=== PATIENT | male | born 1985 | race Caucasian/White ===

== ENCOUNTER 2017-11-26 23:54 | Inpatient (IN) | payer OTHER, SELFPAY ==
[2017-10-09 10:39] VITALS: BMI 25.8
[2017-11-27 00:46] LABS: BASO % 0.5 % (0.0-2.0); EOS # 0.2 K/uL (0.0-0.7); EOS % 2.7 % (0.0-4.0); HEMOGLOBIN 8.7 g/dL (12.0-18.0); LYMPH # 1.5 K/uL (1.0-4.3); LYMPH % 20.8 % (20.0-40.0); MEAN CELL VOLUME 92.9 fL (80.0-94.0); MEAN CORPUSCULAR HGB CONC 34.4 g/dL (33.0-37.0); MEAN PLATELET VOLUME 8.6 fL (7.2-11.7); MONO # 0.6 K/uL (0.0-0.8); MONO % 8.7 % (0.0-10.0); NEUT # 4.9 K/uL (1.8-7.0); NEUT % 67.3 % (50.0-75.0); NRBC % 0.1 % (0.0-2.0); RBC 2.72 Mil/uL (4.40-5.90); RED CELL DISTRIBUTION WIDTH 14.7 % (11.5-14.5); WHITE BLOOD COUNT 7.3 K/uL (4.8-10.8)
--- NOTE | 2017-11-27 00:47 | C.PDOC ---
History Of Present Illness 32 year old male presents to the ED c/o SOB associated with coughing. Patient reports he goes to dialysis on Monday, Monday, Monday. Patient speaking in complete sentences. Patient denies fever, chills, nausea, vomit, weakness, numbness. Time Seen by Provider: 11/27/17 00:47 Chief Complaint (Nursing): Shortness Of Breath History Per: Patient History/Exam Limitations: no limitations Onset/Duration Of Symptoms: Hrs Current Symptoms Are (Timing): Still Present Initiating Event: Other Quality: "Pain" Exacerbating Factor(s): Coughing Current Respiratory Medications: See Home Med List Associated Symptoms: Other (cough) Recent travel outside of the [place]: No Additional History Per: Patient Past Medical History Reviewed: Historical Data, Nursing Documentation, Vital Signs Vital Signs: Last Vital Signs Temp 98.7 F 11/27/17 00:00 Pulse 84 11/27/17 01:49 Resp 29 H 11/27/17 01:49 BP 169/103 H 11/27/17 01:49 Pulse Ox 100 11/27/17 03:08 - Medical History PMH: End Stage Renal Disease Surgical History: No Surg Hx - [facility] Procedures BYPASS LEFT RADIAL ARTERY TO LOWER ARM VEIN, OPEN APPROACH (08/13/15) INSERTION OF INFUSION DEV INTO SUP VENA CAVA, PERC APPROACH (08/13/15) MEASURE CARDIAC SAMPL & PRESSURE, BILATERAL, PERC (08/13/15) PERFORMANCE OF URINARY FILTRATION, MULTIPLE (08/13/15) PLAIN RADIOGRAPHY OF R & L HEART USING L OSM CONTRAST (08/13/15) Family History: States: Unknown Family Hx - Social History Hx Alcohol Use: No Hx Substance Use: No - Immunization History Hx Tetanus Toxoid Vaccination: No Hx Influenza Vaccination: No Hx Pneumococcal Vaccination: No Review Of Systems Constitutional: Negative for: Fever, Chills Cardiovascular: Negative for: Chest Pain Respiratory: Positive for: Cough, Shortness of Breath Gastrointestinal: Negative for: Nausea, Vomiting Skin: Negative for: Rash Neurological: Negative for: Weakness, Numbness Physical Exam - Physical Exam Appears: Non-toxic, No Acute Distress Skin: Warm, Dry Head: Normacephalic Eye(s): bilateral: Normal Inspection Oral Mucosa: Moist Neck: Supple Chest: Symmetrical Cardiovascular: Rhythm Regular Respiratory: Rales (diffuse), No Rhonchi, No Wheezing Gastrointestinal/Abdominal: Soft, No Tenderness, No Guarding, No Rebound Extremity: Normal ROM, No Tenderness, Capillary Refill (< 2 seconds), No Swelling, Other (left forearm hemodialysis graft with good thrill and bruit) Extremity: Bilateral: Atraumatic Pulses: Left Radial: Normal, Right Radial: Normal Neurological/Psych: Oriented x3, Normal Speech Gait: Steady ED Course And Treatment - Laboratory Results Result Diagrams: 11/27/17 00:41 11/27/17 00:41 ECG: Interpreted By Me, Viewed By Me O2 Sat by Pulse Oximetry: 100 Pulse Ox Interpretation: Normal - Radiology CXR: Interpreted by Me, Viewed By Me CXR Interpretation: Yes: Other (acute pulm edema). No: Infiltrates, Fracture, Cardiomegaly Progress Note: 3:[address] parrish ( renal covering for dr michaels) - ok to dialyse in am Critical Care Time - Critical Care Note Total Time (in mins): 30 Documented critical care: time excludes all time spent performing seperately billable procedures. Disposition Discussed With DrLetty: Corey Leal Comment: accepted the pt onhis service and took over the care at 3:10 AM Doctor Will See Patient In The: ED Counseled Patient/Family Regarding: Studies Performed, Diagnosis - Disposition Disposition: HOSPITALIZED Disposition Time: 00:47 Condition: FAIR Forms: [facility] (Persian) - POA Present On Arrival: None - Clinical Impression Clinical Impression: Dyspnea, Respiratory distress, CHF (congestive heart failure), ESRD needing dialysis - Scribe Statement The provider has reviewed the documentation as recorded by the Scribe Sameer Breen All medical record entries made by the Scribe were at my direction and personally dictated by me. I have reviewed the chart and agree that the record accurately reflects my personal performance of the history, physical exam, medical decision making, and the department course for this patient. I have also personally directed, reviewed, and agree with the discharge instructions and disposition. Decision To Admit - Pt Status Changed To: Hospital Disposition Of: Inpatient - Admit Certification Admit to Inpatient:: After my assessment, the patient will require hospitalization for at least two midnights. This is because of the severity of symptoms shown, intensity of services needed, and/or the medical risk in this patient being treated as an outpatient. - InPatient: Physician Admission Certification: I certify that this patient requires 2 or more midnights of care for the following reason:: After my assessment, the patient will require hospitalization for at least two midnights. This is because of the severity of symptoms shown, intensity of services needed, and/or the medical risk in this patient being treated as an outpatient. - . Bed Request Type: Telemetry Admitting Physician: Corey Leal Patient Diagnosis: Dyspnea, Respiratory distress, CHF (congestive heart failure), ESRD needing dialysis
[2017-11-27 00:51] LABS: PROTHROMBIN TIME 10.9 SECONDS (9.7-12.2)
[2017-11-27 01:05] LABS: TROPONIN I 0.039 ng/mL (0.00-0.120)
[2017-11-27 01:39] LABS: ALB/GLOB RATIO 1.5 (1.0-2.1); ALBUMIN 4.4 g/dL (3.5-5.0); CALCIUM 9.7 mg/dl (8.6-10.4)
--- NOTE | 2017-11-27 03:56 | CP.PCM.HP ---
<Giorgio Owen - Last Filed: 11/27/17 05:01> History of Present Illness - History of Present Illness History of Present Illness: This is a 32 yo male, originally from [place], with past medical hx of CHF with reduced ejection fraction, cardiomyopathy, pulmonary hypertension, renal cysts, and ESRD, presenting today to [facility] ER with chief complaint of SOB. Pt is accompanied by . says he drove pt into ER. Pt has been having sob that started on 7 pm this past evening. pt was attempting to go to sleep and could not. He also reports non productive cough. He is chronically short of breath and it was worsening today. Pt is end stage renal. could not say the reason. Denies fevers, chills, cp, palpitations. He has been on dialysis for 2 yrs. He gets dialysis through left av fistula. He does not miss sessions. He sees Dr. Sparrow. He cannot say how much fluid was taken off last visit. He does not produce urine. He is compliant with all medications. He was given IV lasix in ER to help with vasodilation. PMD: Jorge/JOSE in [facility] clinic Specialists: Andrews- nephrology Insurance: [facility] 100 percent [facility] PMH: CHF, dilated cardiomyopathy, pulmonary hypertension, renal cysts, ESRD on dialysis MWF PSH: av fistula left upper ext, vein mapping Allergies: NKDA FH: father- living- no medical problems; mother- living- HTN Home meds: sensipar, lisinopril?, cardizem?, could not say for sure his home medications; needs med rec. Social hx: Denies smoking. Denies secondhand smoke. Denies drinking. Denies drug use. Born in [place]. Does not work. Fully mobile, able to do all ADLs. Recent ER visits/hospitalizations: pt has not been to ER in our system in over a year. Present on Admission - Present on Admission Any Indicators Present on Admission: No History of Uncontrolled Diabetes: No Urinary Catheter: No Decubitus Ulcer Present: No Review of Systems - Constitutional Constitutional: absent: Chills, Fever - EENT Eyes: absent: Blurred Vision, Change in Vision Nose/Mouth/Throat: absent: Sore Throat, Neck Pain - Cardiovascular Cardiovascular: Dyspnea. absent: Chest Pain, Chest Pain at Rest - Respiratory Respiratory: Cough, Dyspnea, Dyspnea on Exertion. absent: Hemoptysis - Gastrointestinal Gastrointestinal: absent: Abdominal Pain, Nausea, Vomiting - Genitourinary Genitourinary: absent: Change in Urinary Stream, Difficulty Urinating - Musculoskeletal Musculoskeletal: absent: Back Pain, Neck Pain, Numbness, Tingling - Integumentary Integumentary: absent: Bleeding Lesions, Changing Lesions - Neurological Neurological: absent: Numbness, Focal Weakness, Tingling, Weakness - Psychiatric Psychiatric: absent: Anxiety, Hallucinations, Visual Hallucinations - Hematologic/Lymphatic Hematologic: absent: Easy Bleeding, Easy Bruising Past Patient History - Infectious Disease Hx of Infectious Diseases: None - Tetanus Immunizations Tetanus Immunization: Unknown - Past Medical History & Family History Past Medical History?: Yes Pertinent Family History: HTN , heart disease in family - Past Social History Smoking Status: Never Smoked Chewing Tobacco Use: No Cigar Use: No Alcohol: None Drugs: Denies Home Situation {Lives}: With Family Domestic Violence: Negative - CARDIAC Hx Cardiac Disorders: No - PULMONARY Other/Comment: SOB A COUPLE DAYS AGO - NEUROLOGICAL Hx Neurological Disorder: No - HEENT Other/Comment: L EYE BLURRY - RENAL Hx Chronic Kidney Disease: No - ENDOCRINE/METABOLIC Hx Endocrine Disorders: No - HEMATOLOGICAL/ONCOLOGICAL Hx Blood Disorders: No - INTEGUMENTARY Hx Dermatological Problems: No - MUSCULOSKELETAL/RHEUMATOLOGICAL Hx Musculoskeletal Disorders: No Hx Falls: No - GASTROINTESTINAL Hx Gastrointestinal Disorders: No - PSYCHIATRIC Hx Substance Use: No - SURGICAL HISTORY Hx Surgeries: No - ANESTHESIA Hx Anesthesia: No Meds Allergies/Adverse Reactions: Allergies Allergy/AdvReac Type Severity Reaction Status Date / Time No Known Allergies Allergy Verified 08/13/15 01:36 Physical Exam - Constitutional Appears: No Acute Distress, Chronically Ill - Head Exam Head Exam: ATRAUMATIC, NORMAL INSPECTION - Eye Exam Eye Exam: EOMI - ENT Exam ENT Exam: Mucous Membranes Moist - Neck Exam Neck exam: Positive for: Normal Inspection - Respiratory Exam Respiratory Exam: Rales. absent: Respiratory Distress, NORMAL BREATHING PATTERN - Cardiovascular Exam Cardiovascular Exam: +S1, +S2. absent: Tachycardia - GI/Abdominal Exam GI & Abdominal Exam: Normal Bowel Sounds, Soft. absent: Tenderness - Extremities Exam Extremities exam: Positive for: full ROM, normal inspection - Back Exam Back exam: NORMAL INSPECTION - Neurological Exam Neurological exam: Alert, CN II-XII Intact, Oriented x3 - Psychiatric Exam Psychiatric exam: Normal Affect, Normal Mood - Skin Skin Exam: Dry, Intact, Normal Color, Warm Results - Vital Signs Recent Vital Signs: Last Vital Signs Temp 98.7 F 11/27/17 00:00 Pulse 85 11/27/17 03:12 Resp 20 11/27/17 03:12 BP 158/98 H 11/27/17 03:12 Pulse Ox 100 11/27/17 03:21 - Labs Result Diagrams: 11/27/17 00:41 11/27/17 00:41 Labs: Laboratory Results - last 24 hr 11/27/17 11/27/17 11/27/17 00:41 00:41 00:41 WBC 7.3 D RBC 2.72 L Hgb 8.7 L D Hct 25.3 L MCV 92.9 MCH 32.0 H MCHC 34.4 RDW 14.7 H Plt Count 151 MPV 8.6 Neut % (Auto) 67.3 Lymph % (Auto) 20.8 [place] % (Auto) 8.7 Eos % (Auto) 2.7 Baso % (Auto) 0.5 Neut # (Auto) 4.9 Lymph # (Auto) 1.5 [place] # (Auto) 0.6 Eos # (Auto) 0.2 Baso # (Auto) 0.0 PT 10.9 INR 1.0 APTT 31 Sodium 146 Potassium 4.8 Chloride 103 Carbon Dioxide 25 Anion Gap 23 H BUN 62 H Creatinine 12.0 H* Est GFR ( Amer) 6 Est GFR (Non-Af Amer) 5 Random Glucose 90 Calcium 9.7 Total Bilirubin 0.6 AST 26 ALT 46 Alkaline Phosphatase 44 Troponin I 0.0390 NT-Pro-B Natriuret Pep 82686 H Total Protein 7.3 Albumin 4.4 Globulin 2.9 Albumin/Globulin Ratio 1.5 Lipase 179 Assessment & Plan - Assessment and Plan (Free Text) Assessment: This is a 32 yo male, originally from [place], with past medical hx of CHF and ESRD, presenting with 1. Shortness of breath -ef 45-50 percent -echo 2018 shows mildly impaired LV fx, moderate pulm hypertension -cardio consult. recs appreciated. -ekg does show some changes from previous -troponin not indicated -no chest pain currently -bipap if needed -CXR -shows pulmonary edema -asa 81 mg po daily -crestor 10 mg po hs -HGB a1C pending; previously 4.7 -TSH and free t4 pending -strict I/O -daily weight -pt condition: fair 2. hx of ESRD -nephrology consult. recs appreciated. Dr. Sparrow -dialysis in am -continue nephrovite -continue calcitriol .25 mcg po daily -continue sensipar -bleeding precautions -BNP over 77,000 likely secondary to renal failure 3. anemia -normocytic -ldh, haptoglobin -stool occult blood -iron studies 3. GI/DVT ppx -scds -protonix 40 mg po daily -renal diet discussed with Dr. Leal <Corey Leal - Last Filed: 11/27/17 06:25> Results - Vital Signs Recent Vital Signs: Last Vital Signs Temp 98.7 F 11/27/17 00:00 Pulse 96 H 11/27/17 05:59 Resp 22 11/27/17 05:59 BP 156/103 H 11/27/17 05:59 Pulse Ox 95 11/27/17 05:59 - Labs Result Diagrams: 11/27/17 05:00 11/27/17 00:41 Labs: Laboratory Results - last 24 hr 11/27/17 11/27/17 11/27/17 00:41 00:41 00:41 WBC 7.3 D RBC 2.72 L Hgb 8.7 L D Hct 25.3 L MCV 92.9 MCH 32.0 H MCHC 34.4 RDW 14.7 H Plt Count 151 MPV 8.6 Neut % (Auto) 67.3 Lymph % (Auto) 20.8 [place] % (Auto) 8.7 Eos % (Auto) 2.7 Baso % (Auto) 0.5 Neut # (Auto) 4.9 Lymph # (Auto) 1.5 [place] # (Auto) 0.6 Eos # (Auto) 0.2 Baso # (Auto) 0.0 PT 10.9 INR 1.0 APTT 31 Sodium 146 Potassium 4.8 Chloride 103 Carbon Dioxide 25 Anion Gap 23 H BUN 62 H Creatinine 12.0 H* Est GFR ( Amer) 6 Est GFR (Non-Af Amer) 5 Random Glucose 90 Calcium 9.7 Ferritin Total Bilirubin 0.6 AST 26 ALT 46 Alkaline Phosphatase 44 Troponin I 0.0390 NT-Pro-B Natriuret Pep 39147 H Total Protein 7.3 Albumin 4.4 Globulin 2.9 Albumin/Globulin Ratio 1.5 Triglycerides Cholesterol LDL Cholesterol Direct HDL Cholesterol Lipase 179 TSH 3rd Generation 11/27/17 11/27/17 04:36 05:00 WBC 6.1 RBC 2.54 L Hgb 8.0 L Hct 23.5 L MCV 92.6 MCH 31.7 H MCHC 34.2 RDW 14.8 H Plt Count 140 MPV 8.3 Neut % (Auto) Lymph % (Auto) 21.0 [place] % (Auto) 7.9 Eos % (Auto) 2.4 Baso % (Auto) 0.4 Neut # (Auto) Lymph # (Auto) 1.3 [place] # (Auto) 0.5 Eos # (Auto) 0.1 Baso # (Auto) 0.0 PT INR APTT Sodium Potassium Chloride Carbon Dioxide Anion Gap BUN Creatinine Est GFR ( Amer) Est GFR (Non-Af Amer) Random Glucose Calcium Ferritin 747.0 Total Bilirubin AST ALT Alkaline Phosphatase Troponin I NT-Pro-B Natriuret Pep Total Protein Albumin Globulin Albumin/Globulin Ratio Triglycerides 101 D Cholesterol 143 LDL Cholesterol Direct 67 HDL Cholesterol 30 Lipase TSH 3rd Generation 0.63 Assessment & Plan - Date & Time Date: 11/27/17 (I have seen and examined the patient. I agree with the findings and plan of care as documented by Dr. Owen. Patient with CHF exacerbation. Lasix IV given in ED. Consult to Cardio. BIPAP as necessary. Also with ESRD. Consult to Nephro. Dialysis this AM. Monitor for acute changes.) Time: 06:24 Attending/Attestation - Attestation I have personally seen and examined this patient.: Yes I have fully participated in the care of the patient.: Yes I have reviewed all pertinent clinical information: Yes
[2017-11-27 05:48] LABS: MEAN CELL VOLUME 92.6 fL (80.0-94.0); MEAN CORPUSCULAR HEMOGLOBIN 31.7 pg (27.0-31.0); MEAN CORPUSCULAR HGB CONC 34.2 g/dL (33.0-37.0); MEAN PLATELET VOLUME 8.3 fL (7.2-11.7); MONO % 7.9 % (0.0-10.0); RBC 2.54 Mil/uL (4.40-5.90); RED CELL DISTRIBUTION WIDTH 14.8 % (11.5-14.5); WHITE BLOOD COUNT 6.1 K/uL (4.8-10.8)
[2017-11-27 05:49] LABS: BASO % 0.4 % (0.0-2.0); EOS # 0.1 K/uL (0.0-0.7); EOS % 2.4 % (0.0-4.0); LYMPH # 1.3 K/uL (1.0-4.3); MONO # 0.5 K/uL (0.0-0.8)
--- NOTE | 2017-11-27 07:48 | CP.PCM.PN ---
<RejiChhaya SLetty - Last Filed: 11/27/17 17:14> Subjective - Date & Time of Evaluation Date of Evaluation: 11/27/17 Time of Evaluation: 07:00 - Subjective Subjective: Medicine Progress Note: Patient was seen and examined at bedside in the AM. Patient stated he felt short of breath. Per my attending Dr. Cannon was told by patient that he ate an abundance of fried chicken on Monday evening. The patient is scheduled for dialysis this morning. Objective - Vital Signs/Intake and Output Vital Signs (last 24 hours): Temp Pulse Resp BP Pulse Ox 98.9 F 99 H 21 154/105 H 98 11/27/17 07:16 11/27/17 07:16 11/27/17 07:16 11/27/17 07:16 11/27/17 07:16 - Medications Medications: Current Medications Aspirin (Aspirin Chewable) 81 mg PO DAILY [facility] Calcitriol (Rocaltrol) 0.25 mcg PO DAILY [facility] Cinacalcet (Sensipar) 30 mg PO DAILY [facility] Digoxin (Digoxin) 0.125 mg PO DAILY@1800 [facility] Epoetin Domingo (Procrit) 10,000 unit IV MWF [facility] Lisinopril (Zestril) 2.5 mg PO DAILY [facility] Rosuvastatin Calcium (Crestor) 10 mg PO HS [facility] Vitamin B Complex/Vit C/Folic Acid (Nephro-Emi) 1 tab PO DAILY [facility] - Labs Labs: 11/27/17 05:00 11/27/17 00:41 PT 10.9 SECONDS (9.7-12.2) 11/27/17 00:41 INR 1.0 11/27/17 00:41 APTT 31 SECONDS (21-34) 11/27/17 00:41 - Constitutional Appears: Chronically Ill - Head Exam Head Exam: ATRAUMATIC, NORMAL INSPECTION - Eye Exam Eye Exam: EOMI, Normal appearance - ENT Exam ENT Exam: Mucous Membranes Moist - Respiratory Exam Respiratory Exam: Rales (bilateral lower lobes), NORMAL BREATHING PATTERN - Cardiovascular Exam Cardiovascular Exam: REGULAR RHYTHM, JVD, +S1, +S2 - GI/Abdominal Exam GI & Abdominal Exam: Soft, Normal Bowel Sounds. absent: Tenderness - Extremities Exam Extremities Exam: absent: Pedal Edema, Tenderness Additional comments: AV fistula on the left arm - Neurological Exam Neurological Exam: Alert, Awake, Oriented x3 - Psychiatric Exam Psychiatric exam: Flat Affect - Skin Skin Exam: Normal Color Assessment and Plan - Assessment and Plan (Free Text) Assessment: Shortness of breath Secondary to ESRD vs. Dilated Cardiomypathy - Bipap prn - Chest Xray: pulmonary edema - Dialysis MWF - Strict I/O - Daily weight History of ESRD Nephrology consult: Dr. Sparrow --> help appreciated - Dialysis MWF - Medications * continue nephrovite * continue calcitriol .25 mcg po daily * continue sensipar * Procrit 10,000 units IV MWF - proBNP over 77,000 likely secondary to renal failure History of Dilated Cardiomyopathy - proBNP over 77,000 likely secondary to renal failure - EKG: NSR at 83bpm; QT prolongation - ECHO (11/01/17): The left ventricle is moderately dilated. There is moderate concentric left ventricular hypertrophy. The systolic function is mildly impaired. The EF 45-50%. (please see full report for details) History of Pulmonary HTN - Medications * Aspirin 81 mg po daily * Crestor 10 mg po HS * Lisinopril 5mg po daily * Coreg 3.125mg q12h - held until breathing improves - hA1c 4.9 - TSH 0.63 and free T4 1.11 - Lipid Profile: Triglycerides 101; Total Cholesterol 143; LDL 67; HDL 30 History of Renal Cysts History of anemia secondary to ESRD - Normocytic - f/u Iron studies - f/u stool occult blood Prophylaxis - SCD - GI prophylaxis not indicated - Renal dialysis diet Case Discussed with Dr. Davis Mendoza PGY-1 <Hever Cannon - Last Filed: 11/27/17 20:27> Objective - Vital Signs/Intake and Output Vital Signs (last 24 hours): Temp Pulse Resp BP Pulse Ox 98.3 F 67 20 155/91 H 95 11/27/17 17:59 11/27/17 19:25 11/27/17 17:59 11/27/17 17:59 11/27/17 17:59 - Medications Medications: Current Medications Aspirin (Aspirin Chewable) 81 mg PO DAILY [facility] Last Admin: 11/27/17 10:00 Dose: Not Given Calcitriol (Rocaltrol) 0.25 mcg PO DAILY [facility] Last Admin: 11/27/17 10:00 Dose: Not Given Cinacalcet (Sensipar) 30 mg PO DAILY [facility] Last Admin: 11/27/17 10:00 Dose: Not Given Epoetin Domingo (Procrit) 10,000 unit IV MWF [facility] Last Admin: 11/27/17 16:30 Dose: 10,000 unit Lisinopril (Zestril) 5 mg PO DAILY [facility] Rosuvastatin Calcium (Crestor) 10 mg PO HS [facility] Vitamin B Complex/Vit C/Folic Acid (Nephro-Emi) 1 tab PO DAILY [facility] Last Admin: 11/27/17 10:00 Dose: Not Given - Labs Labs: 11/27/17 05:00 11/27/17 06:51 PT 10.9 SECONDS (9.7-12.2) 11/27/17 00:41 INR 1.0 11/27/17 00:41 APTT 31 SECONDS (21-34) 11/27/17 00:41 Attending/Attestation - Attestation I have personally seen and examined this patient.: Yes I have fully participated in the care of the patient.: Yes I have reviewed all pertinent clinical information, including history, physical exam and plan: Yes Notes (Text): 11/27/17 20:23 Patient was seen and examined at 8:00 AM with Shirlene present Exam, assessment and plan were gone over with resident Dr. Mendoza Also on ROS: SOB better with O2 via NC Dry nonproductive cough Does not produce urine for some time now Also on Exam: JVD Hepatojugular Reflux Holosystolic Murmur in all auscultatory akhtar Left Arm AVF + Thrill Right > Left mid to lower lung field inspiratory crackles Also on Assessment and Plan: Prolonged QTc: EKG unchanged when compared to 08/13/15 Heart Failure exacerbation likely the cause of SOB: patient had fast food on Monday night as per (fried chicken) and symptoms began on Monday For HD today Hever Cannon D.O.
[2017-11-27 08:02] LABS: ALB/GLOB RATIO 1.4 (1.0-2.1); ALBUMIN 3.9 g/dL (3.5-5.0); CALCIUM 9.2 mg/dl (8.6-10.4)
--- NOTE | 2017-11-27 08:35 | RAD ---
HISTORY: sob COMPARISON: Portable chest 08/14/2015. FINDINGS: LUNGS: Patchy airspace disease in the bilateral bases underlying CHF is not excluded. Interstitial my markings are increased at the mid to inferior lung zones bilaterally. PLEURA: No significant pleural effusion identified, no pneumothorax apparent. CARDIOVASCULAR: Cardiomegaly is reiterated with right center venous dialysis catheter removed. Cephalization is prominent indicating CHF. OSSEOUS STRUCTURES: No significant abnormalities. VISUALIZED UPPER ABDOMEN: Normal. OTHER FINDINGS: None. IMPRESSION: Prominent CHF. Underlying bilateral basilar airspace disease not excluded. Clinically correlate further.
[2017-11-27] MEDS: Multivitamin Vitamin B Complex (Nephro-Vite) Tab PO SCH (10:00)
[2017-11-27] MEDS ORDERED: Pantoprazole 40 mg EC Tab PO SCH (10:00)
--- NOTE | 2017-11-27 11:02 | CP.PCM.CON ---
History of Present Illness - History of Present Illness History of Present Illness: 32 year old with hx of dilated cardiomyopathy, 2016 had cath with normal coronaries and low EF 20%, with PAH. also with acute renal failure. started HD and medical treatment, improved EF to 60% on Mugga, no ICD, follow at the clinic at , 11/17 echo with EF 45-50%. still with severe pulmonary HTN, on HD. now with chronic SOB. ? not on B L[place], needs to stop digoxin, start metoprolol, continue lisinopril and HD, no need for ICD, + fluid restriction, strict observation of daily wt, minimal EKG changes, dig effect v/s cardiomyopathy. Review of Systems - Review of Systems Systems not reviewed;Unavailable: Respiratory Distress - Constitutional Constitutional: Anorexia, Weakness - EENT Eyes: absent: Discharge Ears: absent: Ear Discharge, Dizziness Nose/Mouth/Throat: absent: Epistaxis, Bleeding Gums - Cardiovascular Cardiovascular: absent: Acrocyanosis, Chest Pain, Diaphoresis, Leg Edema, Palpitations, Syncope - Respiratory Respiratory: Cough, Dyspnea. absent: Hemoptysis - Gastrointestinal Gastrointestinal: absent: Abdominal Pain, Diarrhea, Hematochezia, Vomiting - Genitourinary Genitourinary: absent: Change in Urinary Stream Past Patient History - Infectious Disease Hx of Infectious Diseases: None - Tetanus Immunizations Tetanus Immunization: Unknown - Past Medical History & Family History Past Medical History?: Yes - Past Social History Smoking Status: Never Smoked Chewing Tobacco Use: No Cigar Use: No Alcohol: None Drugs: Denies Home Situation {Lives}: With Family Domestic Violence: Negative - CARDIAC Hx Cardiac Disorders: No - PULMONARY Other/Comment: SOB A COUPLE DAYS AGO - NEUROLOGICAL Hx Neurological Disorder: No - HEENT Other/Comment: L EYE BLURRY - RENAL Hx Chronic Kidney Disease: No - ENDOCRINE/METABOLIC Hx Endocrine Disorders: No - HEMATOLOGICAL/ONCOLOGICAL Hx Blood Disorders: No - INTEGUMENTARY Hx Dermatological Problems: No - MUSCULOSKELETAL/RHEUMATOLOGICAL Hx Musculoskeletal Disorders: No Hx Falls: No - GASTROINTESTINAL Hx Gastrointestinal Disorders: No - PSYCHIATRIC Hx Substance Use: No - SURGICAL HISTORY Hx Surgeries: No - ANESTHESIA Hx Anesthesia: No Meds Allergies/Adverse Reactions: Allergies Allergy/AdvReac Type Severity Reaction Status Date / Time No Known Allergies Allergy Verified 08/13/15 01:36 - Medications Medications: Current Medications Aspirin (Aspirin Chewable) 81 mg PO DAILY [facility] Calcitriol (Rocaltrol) 0.25 mcg PO DAILY [facility] Cinacalcet (Sensipar) 30 mg PO DAILY [facility] Digoxin (Digoxin) 0.125 mg PO DAILY@1800 [facility] Epoetin Domingo (Procrit) 10,000 unit IV MWF [facility] Lisinopril (Zestril) 2.5 mg PO DAILY [facility] Rosuvastatin Calcium (Crestor) 10 mg PO HS [facility] Vitamin B Complex/Vit C/Folic Acid (Nephro-Emi) 1 tab PO DAILY [facility] Physical Exam - Constitutional Appears: Non-toxic - Head Exam Head Exam: ATRAUMATIC - Eye Exam Eye Exam: EOMI - ENT Exam ENT Exam: Mucous Membranes Moist - Neck Exam Neck exam: Negative for: Lymphadenopathy, Thyromegaly - Respiratory Exam Respiratory Exam: Clear to Auscultation Bilateral. absent: Rales - Cardiovascular Exam Cardiovascular Exam: REGULAR RHYTHM, Systolic Murmur - GI/Abdominal Exam GI & Abdominal Exam: Normal Bowel Sounds. absent: Organomegaly - Rectal Exam Rectal Exam: Deferred - Extremities Exam Extremities exam: Positive for: normal capillary refill. Negative for: calf tenderness - Neurological Exam Neurological exam: Alert, Oriented x3 - Psychiatric Exam Psychiatric exam: Normal Mood - Skin Skin Exam: Dry Results - Vital Signs Recent Vital Signs: Last Vital Signs Temp 98.3 F 11/27/17 08:00 Pulse 88 11/27/17 08:00 Resp 20 11/27/17 08:00 BP 160/98 H 11/27/17 08:00 Pulse Ox 94 L 11/27/17 08:00 - Labs Result Diagrams: 11/28/17 07:46 11/28/17 07:46 Labs: Laboratory Results - last 24 hr 11/27/17 11/27/17 11/27/17 00:41 00:41 00:41 WBC 7.3 D RBC 2.72 L Hgb 8.7 L D Hct 25.3 L MCV 92.9 MCH 32.0 H MCHC 34.4 RDW 14.7 H Plt Count 151 MPV 8.6 Neut % (Auto) 67.3 Lymph % (Auto) 20.8 [place] % (Auto) 8.7 Eos % (Auto) 2.7 Baso % (Auto) 0.5 Neut # (Auto) 4.9 Lymph # (Auto) 1.5 [place] # (Auto) 0.6 Eos # (Auto) 0.2 Baso # (Auto) 0.0 PT 10.9 INR 1.0 APTT 31 Sodium 146 Potassium 4.8 Chloride 103 Carbon Dioxide 25 Anion Gap 23 H BUN 62 H Creatinine 12.0 H* Est GFR ( Amer) 6 Est GFR (Non-Af Amer) 5 Random Glucose 90 Hemoglobin A1c Calcium 9.7 Ferritin Total Bilirubin 0.6 AST 26 ALT 46 Alkaline Phosphatase 44 Troponin I 0.0390 NT-Pro-B Natriuret Pep 50137 H Total Protein 7.3 Albumin 4.4 Globulin 2.9 Albumin/Globulin Ratio 1.5 Triglycerides Cholesterol LDL Cholesterol Direct HDL Cholesterol Lipase 179 Free T4 TSH 3rd Generation 11/27/17 11/27/17 11/27/17 04:02 04:36 05:00 WBC 6.1 RBC 2.54 L Hgb 8.0 L Hct 23.5 L MCV 92.6 MCH 31.7 H MCHC 34.2 RDW 14.8 H Plt Count 140 MPV 8.3 Neut % (Auto) Lymph % (Auto) 21.0 [place] % (Auto) 7.9 Eos % (Auto) 2.4 Baso % (Auto) 0.4 Neut # (Auto) Lymph # (Auto) 1.3 [place] # (Auto) 0.5 Eos # (Auto) 0.1 Baso # (Auto) 0.0 PT INR APTT Sodium Potassium Chloride Carbon Dioxide Anion Gap BUN Creatinine Est GFR ( Amer) Est GFR (Non-Af Amer) Random Glucose Hemoglobin A1c Calcium Ferritin 747.0 Total Bilirubin AST ALT Alkaline Phosphatase Troponin I NT-Pro-B Natriuret Pep Total Protein Albumin Globulin Albumin/Globulin Ratio Triglycerides 101 D Cholesterol 143 LDL Cholesterol Direct 67 HDL Cholesterol 30 Lipase Free T4 1.11 TSH 3rd Generation 0.63 11/27/17 11/27/17 06:51 07:04 WBC RBC Hgb Hct MCV MCH MCHC RDW Plt Count MPV Neut % (Auto) Lymph % (Auto) [place] % (Auto) Eos % (Auto) Baso % (Auto) Neut # (Auto) Lymph # (Auto) [place] # (Auto) Eos # (Auto) Baso # (Auto) PT INR APTT Sodium 144 Potassium 5.0 Chloride 105 Carbon Dioxide 23 Anion Gap 21 H BUN 60 H Creatinine 12.8 H* Est GFR ( Amer) 5 Est GFR (Non-Af Amer) 5 Random Glucose 89 Hemoglobin A1c 4.9 Calcium 9.2 Ferritin Total Bilirubin 0.6 AST 16 L D ALT 40 Alkaline Phosphatase 39 Troponin I NT-Pro-B Natriuret Pep Total Protein 6.6 Albumin 3.9 Globulin 2.7 Albumin/Globulin Ratio 1.4 Triglycerides Cholesterol LDL Cholesterol Direct HDL Cholesterol Lipase Free T4 TSH 3rd Generation Assessment & Plan (1) CHF (congestive heart failure) Status: Acute Comment: acute over chronic LV diastolic failurre, fluid overload
--- NOTE | 2017-11-27 12:10 | CP.PCM.CON ---
History of Present Illness - History of Present Illness History of Present Illness: This is a 32 yo male, originally from [place], with past medical hx of CHF with reduced ejection fraction, cardiomyopathy, pulmonary hypertension, renal cysts, and ESRD, presentedwith chief complaint of SOB. He also reports non productive cough. He is chronically short of breath and it was worsening today. could not say the reason. Denies fevers, chills, cp, palpitations. He has been on dialysis for 2 yrs. He gets dialysis through left av fistula. He does not miss sessions, anuric. He is compliant with all medications. He was given IV lasix in ER to help with vasodilation. PMH: CHF, dilated cardiomyopathy, pulmonary hypertension, renal cysts, ESRD on dialysis MWF PSH: av fistula left upper ext, vein mapping Allergies: NKDA FH: father- living- no medical problems; mother- living- HTN Home meds: sensipar, lisinopril?, cardizem?, could not say for sure his home medications; needs med rec. Social hx: Denies smoking. Denies secondhand smoke. Denies drinking. Denies drug use. Born in [place]. Does not work. Fully mobile, able to do all ADLs. Review of Systems - Review of Systems All systems: reviewed and no additional remarkable complaints except (as per HPI ) Past Patient History - Infectious Disease Hx of Infectious Diseases: None - Tetanus Immunizations Tetanus Immunization: Unknown - Past Medical History & Family History Past Medical History?: Yes - Past Social History Smoking Status: Never Smoked Chewing Tobacco Use: No Cigar Use: No Alcohol: None Drugs: Denies Home Situation {Lives}: With Family Domestic Violence: Negative - CARDIAC Hx Cardiac Disorders: No - PULMONARY Other/Comment: SOB A COUPLE DAYS AGO - NEUROLOGICAL Hx Neurological Disorder: No - HEENT Other/Comment: L EYE BLURRY - RENAL Hx Chronic Kidney Disease: No - ENDOCRINE/METABOLIC Hx Endocrine Disorders: No - HEMATOLOGICAL/ONCOLOGICAL Hx Blood Disorders: No - INTEGUMENTARY Hx Dermatological Problems: No - MUSCULOSKELETAL/RHEUMATOLOGICAL Hx Musculoskeletal Disorders: No Hx Falls: No - GASTROINTESTINAL Hx Gastrointestinal Disorders: No - PSYCHIATRIC Hx Substance Use: No - SURGICAL HISTORY Hx Surgeries: No - ANESTHESIA Hx Anesthesia: No Meds Allergies/Adverse Reactions: Allergies Allergy/AdvReac Type Severity Reaction Status Date / Time No Known Allergies Allergy Verified 02/11/16 01:36 - Medications Medications: Current Medications Aspirin (Aspirin Chewable) 81 mg PO DAILY [facility] Calcitriol (Rocaltrol) 0.25 mcg PO DAILY [facility] Cinacalcet (Sensipar) 30 mg PO DAILY [facility] Epoetin Domingo (Procrit) 10,000 unit IV MWF [facility] Lisinopril (Zestril) 2.5 mg PO DAILY [facility] Rosuvastatin Calcium (Crestor) 10 mg PO HS [facility] Vitamin B Complex/Vit C/Folic Acid (Nephro-Emi) 1 tab PO DAILY [facility] Physical Exam - Constitutional Appears: Non-toxic, No Acute Distress, Chronically Ill - Head Exam Head Exam: NORMAL INSPECTION, NORMOCEPHALIC - Eye Exam Eye Exam: Normal appearance, PERRL - ENT Exam ENT Exam: Mucous Membranes Moist, Normal Exam - Neck Exam Neck exam: Positive for: Full Rom, Normal Inspection - Respiratory Exam Respiratory Exam: Decreased Breath Sounds, Rales (b/l), NORMAL BREATHING PATTERN - Cardiovascular Exam Cardiovascular Exam: REGULAR RHYTHM, RRR Additional comments: lue avf - GI/Abdominal Exam GI & Abdominal Exam: Distended, Normal Bowel Sounds, Soft - Extremities Exam Extremities exam: Positive for: normal inspection (lue avf), pedal edema - Back Exam Back exam: NORMAL INSPECTION - Psychiatric Exam Psychiatric exam: Normal Affect, Normal Mood - Skin Skin Exam: Dry, Intact Results - Vital Signs Recent Vital Signs: Last Vital Signs Temp 98.3 F 11/27/17 08:00 Pulse 88 11/27/17 08:00 Resp 20 11/27/17 08:00 BP 160/98 H 11/27/17 08:00 Pulse Ox 94 L 11/27/17 08:00 - Labs Result Diagrams: 11/27/17 05:00 11/27/17 06:51 Labs: Laboratory Results - last 24 hr 11/27/17 11/27/17 11/27/17 00:41 00:41 00:41 WBC 7.3 D RBC 2.72 L Hgb 8.7 L D Hct 25.3 L MCV 92.9 MCH 32.0 H MCHC 34.4 RDW 14.7 H Plt Count 151 MPV 8.6 Neut % (Auto) 67.3 Lymph % (Auto) 20.8 [place] % (Auto) 8.7 Eos % (Auto) 2.7 Baso % (Auto) 0.5 Neut # (Auto) 4.9 Lymph # (Auto) 1.5 [place] # (Auto) 0.6 Eos # (Auto) 0.2 Baso # (Auto) 0.0 PT 10.9 INR 1.0 APTT 31 Sodium 146 Potassium 4.8 Chloride 103 Carbon Dioxide 25 Anion Gap 23 H BUN 62 H Creatinine 12.0 H* Est GFR ( Amer) 6 Est GFR (Non-Af Amer) 5 Random Glucose 90 Hemoglobin A1c Calcium 9.7 Ferritin Total Bilirubin 0.6 AST 26 ALT 46 Alkaline Phosphatase 44 Troponin I 0.0390 NT-Pro-B Natriuret Pep 84104 H Total Protein 7.3 Albumin 4.4 Globulin 2.9 Albumin/Globulin Ratio 1.5 Triglycerides Cholesterol LDL Cholesterol Direct HDL Cholesterol Lipase 179 Free T4 TSH 3rd Generation 11/27/17 11/27/17 11/27/17 04:02 04:36 05:00 WBC 6.1 RBC 2.54 L Hgb 8.0 L Hct 23.5 L MCV 92.6 MCH 31.7 H MCHC 34.2 RDW 14.8 H Plt Count 140 MPV 8.3 Neut % (Auto) Lymph % (Auto) 21.0 [place] % (Auto) 7.9 Eos % (Auto) 2.4 Baso % (Auto) 0.4 Neut # (Auto) Lymph # (Auto) 1.3 [place] # (Auto) 0.5 Eos # (Auto) 0.1 Baso # (Auto) 0.0 PT INR APTT Sodium Potassium Chloride Carbon Dioxide Anion Gap BUN Creatinine Est GFR ( Amer) Est GFR (Non-Af Amer) Random Glucose Hemoglobin A1c Calcium Ferritin 747.0 Total Bilirubin AST ALT Alkaline Phosphatase Troponin I NT-Pro-B Natriuret Pep Total Protein Albumin Globulin Albumin/Globulin Ratio Triglycerides 101 D Cholesterol 143 LDL Cholesterol Direct 67 HDL Cholesterol 30 Lipase Free T4 1.11 TSH 3rd Generation 0.63 11/27/17 11/27/17 06:51 07:04 WBC RBC Hgb Hct MCV MCH MCHC RDW Plt Count MPV Neut % (Auto) Lymph % (Auto) [place] % (Auto) Eos % (Auto) Baso % (Auto) Neut # (Auto) Lymph # (Auto) [place] # (Auto) Eos # (Auto) Baso # (Auto) PT INR APTT Sodium 144 Potassium 5.0 Chloride 105 Carbon Dioxide 23 Anion Gap 21 H BUN 60 H Creatinine 12.8 H* Est GFR ( Amer) 5 Est GFR (Non-Af Amer) 5 Random Glucose 89 Hemoglobin A1c 4.9 Calcium 9.2 Ferritin Total Bilirubin 0.6 AST 16 L D ALT 40 Alkaline Phosphatase 39 Troponin I NT-Pro-B Natriuret Pep Total Protein 6.6 Albumin 3.9 Globulin 2.7 Albumin/Globulin Ratio 1.4 Triglycerides Cholesterol LDL Cholesterol Direct HDL Cholesterol Lipase Free T4 TSH 3rd Generation Assessment & Plan (1) CHF (congestive heart failure) Status: Acute (2) ESRD needing dialysis Status: Acute (3) Respiratory distress Status: Acute (4) ESRD (end stage renal disease) Status: Acute (5) Hypertension Status: Acute (6) Secondary hyperparathyroidism Status: Acute (7) Severe anemia Status: Acute (8) CHF (congestive heart failure) Status: Suspected - Assessment and Plan (Free Text) Assessment: cmp/ chf/fluid overload htn anemia esrd pulm htn plan: hd today, aggressive fluid removal fluid rrestriction 1L/day advised increase lisinopril dose to 5mg daily yani w/ hd
[2017-11-27] MEDS: Epoetin Alfa 10,000 unit/ml Dialysis IV SCH (16:30)
[2017-11-27 18:00] VITALS: RESP 20
[2017-11-27] MEDS ORDERED: Digoxin 125 mcg (0.125 mg) Tab PO SCH (18:00)
[2017-11-27 22:08] LABS: IRON 40 ug/dL (49-181)
[2017-11-27 22:17] LABS: % IRON SATURATION 22 (20-55); TOTAL IRON BINDING CAPACITY 184 ug/dL (250-450)
[2017-11-28 08:08] LABS: BASO % 0.5 % (0.0-2.0); EOS # 0.1 K/uL (0.0-0.7); EOS % 2.5 % (0.0-4.0); HEMOGLOBIN 9.6 g/dL (12.0-18.0); LYMPH # 1.2 K/uL (1.0-4.3); LYMPH % 21.1 % (20.0-40.0); MEAN CELL VOLUME 91.8 fL (80.0-94.0); MEAN CORPUSCULAR HEMOGLOBIN 32.4 pg (27.0-31.0); MEAN CORPUSCULAR HGB CONC 35.3 g/dL (33.0-37.0); MEAN PLATELET VOLUME 8.4 fL (7.2-11.7); MONO # 0.6 K/uL (0.0-0.8); MONO % 10.1 % (0.0-10.0); NEUT # 3.6 K/uL (1.8-7.0); NEUT % 65.8 % (50.0-75.0); RBC 2.97 Mil/uL (4.40-5.90); RED CELL DISTRIBUTION WIDTH 14.7 % (11.5-14.5); WHITE BLOOD COUNT 5.5 K/uL (4.8-10.8)
[2017-11-28 08:20] LABS: ALB/GLOB RATIO 1.4 (1.0-2.1); CALCIUM 8.5 mg/dl (8.6-10.4)
[2017-11-28] MEDS: Multivitamin Vitamin B Complex (Nephro-Vite) Tab PO SCH (09:10)
--- NOTE | 2017-11-28 10:58 | CP.PCM.PN ---
Subjective - Date & Time of Evaluation Date of Evaluation: 11/28/17 Time of Evaluation: 10:57 - Subjective Subjective: seen and examined hd yesterday, improved breathing notes reviewed no cp/dizziness/cough/palpitations/headache/f/c/v/n/d/rash Objective - Vital Signs/Intake and Output Vital Signs (last 24 hours): Temp Pulse Resp BP Pulse Ox 98.2 F 75 20 155/94 H 96 11/28/17 07:00 11/28/17 07:00 11/28/17 07:00 11/28/17 07:00 11/28/17 07:00 Intake and Output: 11/28/17 11/28/17 06:59 18:59 Intake Total 1000 Balance 1000 - Medications Medications: Current Medications Aspirin (Aspirin Chewable) 81 mg PO DAILY [facility] Last Admin: 11/28/17 09:10 Dose: 81 mg Calcitriol (Rocaltrol) 0.25 mcg PO DAILY [facility] Last Admin: 11/28/17 09:10 Dose: 0.25 mcg Carvedilol (Coreg) 3.125 mg PO BID [facility] Last Admin: 11/28/17 09:10 Dose: 3.125 mg Cinacalcet (Sensipar) 30 mg PO DAILY [facility] Last Admin: 11/27/17 10:00 Dose: Not Given Epoetin Domingo (Procrit) 10,000 unit IV MWF [facility] Last Admin: 11/27/17 16:30 Dose: 10,000 unit Heparin Sodium (Porcine) (Heparin) 5,000 units SC Q12 [facility] Last Admin: 11/28/17 09:10 Dose: 5,000 units Lisinopril (Zestril) 5 mg PO DAILY [facility] Last Admin: 11/28/17 09:10 Dose: 5 mg Rosuvastatin Calcium (Crestor) 10 mg PO HS [facility] Last Admin: 11/27/17 21:32 Dose: 10 mg Vitamin B Complex/Vit C/Folic Acid (Nephro-Emi) 1 tab PO DAILY [facility] Last Admin: 11/28/17 09:10 Dose: 1 tab - Labs Labs: 11/28/17 07:46 11/28/17 07:46 PT 10.9 SECONDS (9.7-12.2) 11/27/17 00:41 INR 1.0 11/27/17 00:41 APTT 31 SECONDS (21-34) 11/27/17 00:41 - Constitutional Appears: Non-toxic, No Acute Distress - Head Exam Head Exam: NORMAL INSPECTION, NORMOCEPHALIC - Eye Exam Eye Exam: Normal appearance, PERRL - ENT Exam ENT Exam: Mucous Membranes Moist, Normal Exam - Respiratory Exam Respiratory Exam: Decreased Breath Sounds, Rales (b/l ) - Cardiovascular Exam Cardiovascular Exam: REGULAR RHYTHM, RRR - GI/Abdominal Exam GI & Abdominal Exam: Distended, Soft - Extremities Exam Extremities Exam: Full ROM, Normal Inspection Additional comments: lue avf - Neurological Exam Neurological Exam: Alert, Awake - Psychiatric Exam Psychiatric exam: Normal Affect, Normal Mood - Skin Skin Exam: Dry, Intact Assessment and Plan (1) CHF (congestive heart failure) Status: Acute (2) ESRD needing dialysis Status: Acute (3) Respiratory distress Status: Acute (4) ESRD (end stage renal disease) Status: Acute (5) Hypertension Status: Acute (6) Secondary hyperparathyroidism Status: Acute (7) Severe anemia Status: Acute (8) CHF (congestive heart failure) Status: Suspected - Assessment and Plan (Free Text) Assessment: hd tomorrow fluid restriction cardiology management
--- NOTE | 2017-11-28 11:27 | CARD ---
APPROVED REPORT EKG Measurement Heart [id number] <Conclusion> Normal sinus rhythm ST & T wave abnormality, consider lateral ischemia Prolonged QT Abnormal ECG
--- NOTE | 2017-11-28 11:41 | CP.PCM.PN ---
<Jenifer Ellison - Last Filed: 11/28/17 16:17> Subjective - Date & Time of Evaluation Date of Evaluation: 11/28/17 Time of Evaluation: 11:41 - Subjective Subjective: Medicine progress note for Dr. Mian Cannon Patient was seen and examined at bedside in no acute distress. Patient reports his breathing has significantly improved; he no longer feels short of breath. Patient has no complaints today. He had a normal BM two days ago, but denies constipation. Patient denies chest pain, abdominal pain, palpitations, nausea, vomiting, fevers, headaches, dysuria, leg pain/swelling. Objective - Vital Signs/Intake and Output Vital Signs (last 24 hours): Temp Pulse Resp BP Pulse Ox 98.2 F 75 20 155/94 H 96 11/28/17 07:00 11/28/17 07:00 11/28/17 07:00 11/28/17 07:00 11/28/17 07:00 Intake and Output: 11/28/17 11/28/17 06:59 18:59 Intake Total 1000 Balance 1000 - Medications Medications: Current Medications Aspirin (Aspirin Chewable) 81 mg PO DAILY [facility] Last Admin: 11/28/17 09:10 Dose: 81 mg Calcitriol (Rocaltrol) 0.25 mcg PO DAILY [facility] Last Admin: 11/28/17 09:10 Dose: 0.25 mcg Carvedilol (Coreg) 3.125 mg PO BID [facility] Last Admin: 11/28/17 09:10 Dose: 3.125 mg Cinacalcet (Sensipar) 30 mg PO DAILY [facility] Last Admin: 11/27/17 10:00 Dose: Not Given Epoetin Domingo (Procrit) 10,000 unit IV MWF [facility] Last Admin: 11/27/17 16:30 Dose: 10,000 unit Heparin Sodium (Porcine) (Heparin) 5,000 units SC Q12 [facility] Last Admin: 11/28/17 09:10 Dose: 5,000 units Lisinopril (Zestril) 5 mg PO DAILY [facility] Last Admin: 11/28/17 09:10 Dose: 5 mg Rosuvastatin Calcium (Crestor) 10 mg PO HS [facility] Last Admin: 11/27/17 21:32 Dose: 10 mg Vitamin B Complex/Vit C/Folic Acid (Nephro-Emi) 1 tab PO DAILY [facility] Last Admin: 11/28/17 09:10 Dose: 1 tab - Labs Labs: 11/28/17 07:46 11/28/17 07:46 PT 10.9 SECONDS (9.7-12.2) 11/27/17 00:41 INR 1.0 11/27/17 00:41 APTT 31 SECONDS (21-34) 11/27/17 00:41 - Constitutional Appears: No Acute Distress - Head Exam Head Exam: ATRAUMATIC, NORMAL INSPECTION - Eye Exam Eye Exam: EOMI, Normal appearance - ENT Exam ENT Exam: Mucous Membranes Moist - Respiratory Exam Respiratory Exam: NORMAL BREATHING PATTERN. absent: Rales, Rhonchi, Wheezes, Respiratory Distress - Cardiovascular Exam Cardiovascular Exam: +S1, +S2, Murmur - GI/Abdominal Exam GI & Abdominal Exam: Soft, Normal Bowel Sounds. absent: Distended, Firm, Tenderness - Extremities Exam Extremities Exam: Normal Inspection. absent: Pedal Edema, Tenderness Additional comments: Left Forearm- AV fistula, + thrill - Neurological Exam Neurological Exam: Alert, Awake, Oriented x3 - Psychiatric Exam Psychiatric exam: Normal Affect, Normal Mood - Skin Skin Exam: Dry, Intact, Normal Color, Warm Assessment and Plan - Assessment and Plan (Free Text) Plan: Shortness of breath Likley Secondary to Dilated Cardiomyopathy - Bipap prn - Chest Xray: pulmonary edema - Dialysis MWF - Strict I/O - Daily weight (improving, 147 on 11/28 from 154 on 11/27) History of ESRD Nephrology consult: Dr. Sparrow --> help appreciated - Dialysis MWF - Medications * continue nephrovite * continue calcitriol .25 mcg po daily * continue sensipar * Procrit 10,000 units IV MWF - proBNP over 77,000 likely secondary to renal failure History of Dilated Cardiomyopathy - proBNP over 77,000 likely secondary to renal failure - EKG: NSR at 83bpm; QT prolongation - ECHO (11/01/17): The left ventricle is moderately dilated; moderate concentric left ventricular hypertrophy; systolic function is mildly impaired;EF 45-50%. ( please see full report for details) History of Pulmonary HTN - Medications * Aspirin 81 mg po daily * Crestor 10 mg po HS * Lisinopril 5mg po daily * Coreg 3.125mg q12h - held until breathing improves - A1c 4.9 - TSH 0.63 and free T4 1.11 - Lipid Profile: Triglycerides 101; Total Cholesterol 143; LDL 67; HDL 30 History of Renal Cysts History of anemia secondary to ESRD - Normocytic - Iron studies: iron 40, TIBC 184, %sat 22, Ferritin 747, - f/u stool occult blood Prolonged QTc - EKG unchanged when compared to 08/13/15 Prophylaxis - SCD - GI prophylaxis not indicated - Renal dialysis diet <Hever Cannon - Last Filed: 11/28/17 19:19> Objective - Vital Signs/Intake and Output Vital Signs (last 24 hours): Temp Pulse Resp BP Pulse Ox 99.1 F 76 20 145/90 98 11/28/17 15:40 11/28/17 17:54 11/28/17 15:40 11/28/17 15:40 11/28/17 15:40 Intake and Output: 11/28/17 11/29/17 18:59 06:59 Intake Total 480 Balance 480 - Medications Medications: Current Medications Aspirin (Aspirin Chewable) 81 mg PO DAILY [facility] Last Admin: 11/28/17 09:10 Dose: 81 mg Calcitriol (Rocaltrol) 0.25 mcg PO DAILY [facility] Last Admin: 11/28/17 09:10 Dose: 0.25 mcg Carvedilol (Coreg) 3.125 mg PO BID [facility] Last Admin: 11/28/17 17:08 Dose: 3.125 mg Cinacalcet (Sensipar) 30 mg PO DAILY [facility] Last Admin: 11/28/17 12:20 Dose: 30 mg Epoetin Domingo (Procrit) 10,000 unit IV MWF [facility] Last Admin: 11/27/17 16:30 Dose: 10,000 unit Heparin Sodium (Porcine) (Heparin) 5,000 units SC Q12 [facility] Last Admin: 11/28/17 09:10 Dose: 5,000 units Lisinopril (Zestril) 5 mg PO DAILY [facility] Last Admin: 11/28/17 09:10 Dose: 5 mg Rosuvastatin Calcium (Crestor) 10 mg PO HS [facility] Last Admin: 11/27/17 21:32 Dose: 10 mg Vitamin B Complex/Vit C/Folic Acid (Nephro-Emi) 1 tab PO DAILY [facility] Last Admin: 11/28/17 09:10 Dose: 1 tab - Labs Labs: 11/28/17 07:46 11/28/17 07:46 PT 10.9 SECONDS (9.7-12.2) 11/27/17 00:41 INR 1.0 11/27/17 00:41 APTT 31 SECONDS (21-34) 11/27/17 00:41 Attending/Attestation - Attestation I have personally seen and examined this patient.: Yes I have fully participated in the care of the patient.: Yes I have reviewed all pertinent clinical information, including history, physical exam and plan: Yes Notes (Text): 11/28/17 19:11 Patient was seen and examined at 7:45 AM Exam, assessment and plan were gone over with the resident Dr. Espino. Also on ROS: Breathing is much better Also on Exam: Respiratory: CTA B/L NO JVD NO Hepatojugular refulx NO edema of extremities Holosystolic murmur in all auscultatory heart akhtar I measured his weight and it is now 147 pounds compared to 154 from 11/27/17. Plan would be discharge after dialysis 11/29/17. Hever Cannon D.O.
--- NOTE | 2017-11-28 12:10 | CP.PCM.PN ---
Subjective - Date & Time of Evaluation Date of Evaluation: 11/28/17 Time of Evaluation: 12:00 - Subjective Subjective: Improved clinically after hemodialysis, avoid digoxin and add beta eula Objective - Vital Signs/Intake and Output Vital Signs (last 24 hours): Temp Pulse Resp BP Pulse Ox 98.2 F 75 20 155/94 H 96 11/28/17 07:00 11/28/17 07:00 11/28/17 07:00 11/28/17 07:00 11/28/17 07:00 Intake and Output: 11/28/17 11/28/17 06:59 18:59 Intake Total 1000 Balance 1000 - Medications Medications: Current Medications Aspirin (Aspirin Chewable) 81 mg PO DAILY [facility] Last Admin: 11/28/17 09:10 Dose: 81 mg Calcitriol (Rocaltrol) 0.25 mcg PO DAILY [facility] Last Admin: 11/28/17 09:10 Dose: 0.25 mcg Carvedilol (Coreg) 3.125 mg PO BID [facility] Last Admin: 11/28/17 09:10 Dose: 3.125 mg Cinacalcet (Sensipar) 30 mg PO DAILY [facility] Last Admin: 11/27/17 10:00 Dose: Not Given Epoetin Domingo (Procrit) 10,000 unit IV MWF [facility] Last Admin: 11/27/17 16:30 Dose: 10,000 unit Heparin Sodium (Porcine) (Heparin) 5,000 units SC Q12 [facility] Last Admin: 11/28/17 09:10 Dose: 5,000 units Lisinopril (Zestril) 5 mg PO DAILY [facility] Last Admin: 11/28/17 09:10 Dose: 5 mg Rosuvastatin Calcium (Crestor) 10 mg PO HS [facility] Last Admin: 11/27/17 21:32 Dose: 10 mg Vitamin B Complex/Vit C/Folic Acid (Nephro-Emi) 1 tab PO DAILY [facility] Last Admin: 11/28/17 09:10 Dose: 1 tab - Labs Labs: 11/28/17 07:46 11/28/17 07:46 PT 10.9 SECONDS (9.7-12.2) 11/27/17 00:41 INR 1.0 11/27/17 00:41 APTT 31 SECONDS (21-34) 11/27/17 00:41 - Constitutional Appears: Non-toxic - Head Exam Head Exam: ATRAUMATIC - Eye Exam Eye Exam: EOMI - ENT Exam ENT Exam: Mucous Membranes Moist - Neck Exam Neck Exam: absent: Lymphadenopathy, Thyromegaly - Respiratory Exam Respiratory Exam: Clear to Ausculation Bilateral. absent: Rales - Cardiovascular Exam Cardiovascular Exam: REGULAR RHYTHM, Murmur - GI/Abdominal Exam GI & Abdominal Exam: Normal Bowel Sounds. absent: Organomegaly - Rectal Exam Rectal Exam: Deferred - Extremities Exam Extremities Exam: Normal Capillary Refill. absent: Calf Tenderness - Neurological Exam Neurological Exam: Alert, Oriented x3 - Psychiatric Exam Psychiatric exam: Normal Affect - Skin Skin Exam: Dry Assessment and Plan (1) CHF (congestive heart failure) Assessment & Plan: improved after HD Status: Acute
--- NOTE | 2017-11-29 07:54 | CP.PCM.DIS ---
<Jenifer Ellison - Last Filed: 11/29/17 14:20> Provider - Provider Date of Admission: 11/27/17 03:09 Attending physician: Hever Cannon MD Primary care physician: [facility] Consults: Nephrology: Dr. Sparrow Director Information Security: Dr. Romero Time Spent in preparation of Discharge (in minutes): 45 Hospital Course - Lab Results Lab Results: Most Recent Lab Values WBC 5.5 K/uL (4.8-10.8) 11/28/17 07:46 RBC 2.97 Mil/uL (4.40-5.90) L 11/28/17 07:46 Hgb 9.6 g/dL (12.0-18.0) L 11/28/17 07:46 Hct 27.3 % (35.0-51.0) L 11/28/17 07:46 MCV 91.8 fL (80.0-94.0) 11/28/17 07:46 MCH 32.4 pg (27.0-31.0) H 11/28/17 07:46 MCHC 35.3 g/dL (33.0-37.0) 11/28/17 07:46 RDW 14.7 % (11.5-14.5) H 11/28/17 07:46 Plt Count 142 K/uL (130-400) 11/28/17 07:46 MPV 8.4 fL (7.2-11.7) 11/28/17 07:46 Neut % (Auto) 65.8 % (50.0-75.0) 11/28/17 07:46 Lymph % (Auto) 21.1 % (20.0-40.0) 11/28/17 07:46 Dorado % (Auto) 10.1 % (0.0-10.0) H 11/28/17 07:46 Eos % (Auto) 2.5 % (0.0-4.0) 11/28/17 07:46 Baso % (Auto) 0.5 % (0.0-2.0) 11/28/17 07:46 Neut # (Auto) 3.6 K/uL (1.8-7.0) 11/28/17 07:46 Lymph # (Auto) 1.2 K/uL (1.0-4.3) 11/28/17 07:46 Dorado # (Auto) 0.6 K/uL (0.0-0.8) 11/28/17 07:46 Eos # (Auto) 0.1 K/uL (0.0-0.7) 11/28/17 07:46 Baso # (Auto) 0.0 K/uL (0.0-0.2) 11/28/17 07:46 PT 10.9 SECONDS (9.7-12.2) 11/27/17 00:41 INR 1.0 11/27/17 00:41 APTT 31 SECONDS (21-34) 11/27/17 00:41 Sodium 143 mmol/L (132-148) 11/28/17 07:46 Potassium 4.3 mmol/L (3.6-5.2) 11/28/17 07:46 Chloride 100 mmol/L (98-107) 11/28/17 07:46 Carbon Dioxide 29 mmol/L (22-30) 11/28/17 07:46 Anion Gap 19 (10-20) 11/28/17 07:46 BUN 36 mg/dL (9-20) H 11/28/17 07:46 Creatinine 9.4 mg/dL (0.8-1.5) H* D 11/28/17 07:46 Est GFR ( Amer) 8 11/28/17 07:46 Est GFR (Non-Af Amer) 6 11/28/17 07:46 Random Glucose 87 mg/dL (75-110) 11/28/17 07:46 Hemoglobin A1c 4.9 % (4.2-6.5) 11/27/17 07:04 Calcium 8.5 mg/dl (8.6-10.4) L 11/28/17 07:46 Phosphorus 5.2 mg/dL (2.5-4.5) H 11/28/17 07:46 Magnesium 2.4 mg/dL (1.6-2.3) H 11/28/17 07:46 Iron 40 ug/dL (49-181) L 11/27/17 21:46 TIBC 184 ug/dL (250-450) L 11/27/17 21:46 % Saturation 22 (20-55) 05/28/18 21:46 Ferritin 747.0 ng/mL 11/27/17 04:36 Total Bilirubin 0.6 mg/dL (0.2-1.3) 11/28/17 07:46 AST 15 U/L (17-59) L 11/28/17 07:46 ALT 26 U/L (21-72) 11/28/17 07:46 Alkaline Phosphatase 41 U/L (38-126) 11/28/17 07:46 Troponin I 0.0390 ng/mL (0.00-0.120) 11/27/17 00:41 NT-Pro-B Natriuret Pep 14983 pg/mL (0-450) H 11/27/17 00:41 Total Protein 6.8 g/dL (6.3-8.3) 11/28/17 07:46 Albumin 4.0 g/dL (3.5-5.0) 11/28/17 07:46 Globulin 2.8 gm/dL (2.2-3.9) 11/28/17 07:46 Albumin/Globulin Ratio 1.4 (1.0-2.1) 11/28/17 07:46 Triglycerides 101 mg/dL (0-149) D 11/27/17 04:36 Cholesterol 143 mg/dL (0-199) 11/27/17 04:36 LDL Cholesterol Direct 67 mg/dL (0-129) 11/27/17 04:36 HDL Cholesterol 30 mg/dL (30-70) 11/27/17 04:36 Lipase 179 U/L (23-300) 11/27/17 00:41 Free T4 1.11 ng/dL (0.78-2.19) 11/27/17 04:02 TSH 3rd Generation 0.63 mIU/L (0.46-4.68) 11/27/17 04:36 - Hospital Course Hospital Course: This is a 32 yo male, originally from [place], with past medical hx of CHF with reduced ejection fraction, cardiomyopathy, pulmonary hypertension, renal cysts, and ESRD, presenting today to [facility] with chief complaint of SOB. Pt is accompanied by . says he drove pt into ER. Pt has been having sob that started on 7 pm this past evening. pt was attempting to go to sleep and could not. He also reports non productive cough. He is chronically short of breath and it was worsening today. Pt is end stage renal. could not say the reason. Denies fevers, chills, cp, palpitations. He has been on dialysis for 2 yrs. He gets dialysis through left av fistula. He does not miss sessions. He sees Dr. Sparrow. He cannot say how much fluid was taken off last visit. He does not produce urine. He is compliant with all medications. He was given IV lasix in ER to help with vasodilation. PMD: Jorge/JOSE in [place] [facility] Specialists: [facility]- nephrology PMH: CHF, dilated cardiomyopathy, pulmonary hypertension, renal cysts, ESRD on dialysis MWF PSH: av fistula left upper ext, vein mapping FH: father- living- no medical problems; mother- living- HTN Social hx: Denies smoking. Denies secondhand smoke. Denies drinking. Denies drug use. Born in [place]. Does not work. Fully mobile, able to do all ADLs. Allergies: NKDA Home meds: sensipar, lisinopril?, cardizem?, could not say for sure his home medications; needs med rec. Hospital Course: Patient was admitted on 11/27/17 for CHF exacerbation and ESRD needing dialysis. Chest xray was ordered and showed pulmonary edema. Echocardiogram from previous admission on 11/01/17 showed an EF 45-50%, mildly impaired LV function, moderate pulm hypertension. Cardiology was consulted, Dr. Romero. Patient was placed on telemetry, BiPAP, Aspirin 81mg daily, crestor 10mg HS. Ordered daily weights, intake/output was monitored, and patient was placed on fluid restricted diet. A1c, thyroid panel and BNO were ordered. A1c and thyroid panel was within normal range; BNP was elevated at 77,000. Nephrology, Dr. Sparrow, was consulted. Patient continued regular Monday, Monday, Monday scheduled and resumed medications (nephrovite, calcitriol, and sensipar). On 11/28, patient was seen and examined, lungs were clear to auscultation, no edema noted on extremities, and patient denies dyspnea, cough, palpitations, chest pain, leg pain/swelling. The patient weight decreased from 154 at admission to 148 on 11/29/17. Patient seen and examined on 11/29; he is scheduled for dialysis on 5/30 and reports all symptoms have resolved. Patient' s coreg was increased from 3.125mg PO BID to 6.25mg PO BID to achieve better control of blood pressure. Patient is stable for discharge to home. Patient must follow heart failure and renal diet. Patient must continue regular dialysis schedule of MWF at [facility] on [facility]. Patient must follow up with coiled tubing supervisor and PMD within 1 week of discharge. This is a brief summary of the hospital course. Please see EMR for more details. Discharge Exam - Additional Findings Additional findings: - Constitutional Appears: No Acute Distress - Head Exam Head Exam: ATRAUMATIC, NORMAL INSPECTION - Eye Exam Eye Exam: EOMI, Normal appearance - ENT Exam ENT Exam: Mucous Membranes Moist - Respiratory Exam Respiratory Exam: NORMAL BREATHING PATTERN. absent: Rales, Rhonchi, Wheezes, Respiratory Distress - Cardiovascular Exam Cardiovascular Exam: +S1, +S2, Murmur - GI/Abdominal Exam GI & Abdominal Exam: Soft, Normal Bowel Sounds. absent: Distended, Firm, Tenderness - Extremities Exam Extremities Exam: Normal Inspection. absent: Pedal Edema, Tenderness Additional comments: Left Forearm- AV fistula, + thrill - Neurological Exam Neurological Exam: Alert, Awake, Oriented x3 - Psychiatric Exam Psychiatric exam: Normal Affect, Normal Mood - Skin Skin Exam: Dry, Intact, Normal Color, Warm Discharge Plan - Discharge Medications Prescriptions: Aspirin [Aspirin Chewable] 81 mg PO DAILY #30 chew Calcitriol [Rocaltrol] 0.25 mcg PO DAILY #30 sgl Carvedilol [Coreg] 6.25 mg PO BID #60 tab Cinacalcet [Sensipar] 30 mg PO DAILY #30 tab Lisinopril [Zestril] 5 mg PO DAILY #30 tab Rosuvastatin Calcium [Crestor] 10 mg PO HS #30 tab Vitamin B Complex/Vit C/Folic [Nephro-Emi] 1 tab PO DAILY #30 tab - Follow Up Plan Condition: FAIR Disposition: HOME/ ROUTINE Instructions: Dialysis Diet , Heart Failure, Adult (DC), Hemodialysis (DC), End Stage Kidney Disease (DC) Additional Instructions: Patient is stable for discharge to home after completion of dialysis. Patient must continue medications: 1. ASA 81mg PO daily- take 1 tablet by mouth daily (breakfast) 2. Coreg 6.25mg PO BID- take 1 tablet by mouth twice a day (breakfast, dinner) 3. Lisinopril 5mg PO daily- take 1 tablet by mouth daily (lunch) 4. Crestor 10mg PO HS- take 1 tablet by mouth in the evening (dinner) 5. Calcitriol 0.25mcg PO daily- take 1 tablet by mouth daily (breakfast) 6. Sensipar 30mg PO daily- take 1 tablet by mouth daily (breakfast) 7. Nephro-Emi- take 1 tablet by mouth daily (breakfast) Patient must continue heart failure and renal diet- information provided by switchboard wire worker helper. Patient must continue dialysis schedule MWF at [facility] on . Patient must follow up with their PMD at [facility] within one week of discharge. Patient must follow up with coiled tubing supervisor, Dr. Sparrow, within one week of discharge. If symptoms reoccur or worsen, patient should return to the nearest ER. El paciente est estable para la descarga a martinez casa despus de la finalizacin de la dilisis. El paciente debe continuar con los medicamentos: 1. ASA 81mg PO diario - tome 1 tableta por la boca diariamente (desayuno) 2. Coreg 6.25mg PO BID- tome 1 tableta por va oral dos veces al da (desayuno, marine engine mechanic) 3. Lisinopril 5mg PO diario - tome 1 tableta por la boca diariamente (almuerzo) 4. Crestor 10mg PO HS- lenore 1 tableta por la boca en la noche (marine engine mechanic) 5. Calcitriol 0.25mcg por da: tome 1 tableta por la boca diariamente (desayuno) 6. Sensipar 30mg PO diario - tome 1 tableta por la boca diariamente (desayuno) 7. Nephro-Emi- tome 1 tableta por la boca diariamente (desayuno) El paciente debe continuar la insuficiencia cardaca y la informacin sobre la dieta renal proporcionada por un dietista. El paciente debe continuar el programa de dilisis MWF en [facility] en . El paciente debe realizar un seguimiento con martinez PMD en [facility] dentro de mayo semana de sarath sido dado de leonardo. El paciente debe realizar un seguimiento con el nefrlogo, el Dr. Sparrow, dentro de la semana posterior al leonardo. Si los sntomas reaparecen o empeoran, el paciente debe regresar al servicio de urgencias ms andressa. Referrals: Dae Sparrow MD [Staff Provider] - <Hever Cannon - Last Filed: 11/29/17 17:27> Provider - Provider Date of Admission: 11/27/17 03:09 Attending physician: Hever Cannon MD Time Spent in preparation of Discharge (in minutes): 40 Hospital Course - Lab Results Lab Results: Most Recent Lab Values WBC 4.8 K/uL (4.8-10.8) 11/29/17 07:41 RBC 2.89 Mil/uL (4.40-5.90) L 11/29/17 07:41 Hgb 9.4 g/dL (12.0-18.0) L 11/29/17 07:41 Hct 26.6 % (35.0-51.0) L 11/29/17 07:41 MCV 91.9 fL (80.0-94.0) 11/29/17 07:41 MCH 32.6 pg (27.0-31.0) H 11/29/17 07:41 MCHC 35.5 g/dL (33.0-37.0) 11/29/17 07:41 RDW 14.8 % (11.5-14.5) H 11/29/17 07:41 Plt Count 140 K/uL (130-400) 11/29/17 07:41 MPV 8.2 fL (7.2-11.7) 11/29/17 07:41 Neut % (Auto) 54.3 % (50.0-75.0) 11/29/17 07:41 Lymph % (Auto) 29.4 % (20.0-40.0) 11/29/17 07:41 Dorado % (Auto) 12.4 % (0.0-10.0) H 11/29/17 07:41 Eos % (Auto) 3.1 % (0.0-4.0) 11/29/17 07:41 Baso % (Auto) 0.8 % (0.0-2.0) 11/29/17 07:41 Neut # (Auto) 2.6 K/uL (1.8-7.0) 11/29/17 07:41 Lymph # (Auto) 1.4 K/uL (1.0-4.3) 11/29/17 07:41 Dorado # (Auto) 0.6 K/uL (0.0-0.8) 11/29/17 07:41 Eos # (Auto) 0.2 K/uL (0.0-0.7) 11/29/17 07:41 Baso # (Auto) 0.0 K/uL (0.0-0.2) 11/29/17 07:41 PT 10.9 SECONDS (9.7-12.2) 11/27/17 00:41 INR 1.0 11/27/17 00:41 APTT 31 SECONDS (21-34) 11/27/17 00:41 Sodium 142 mmol/L (132-148) 11/29/17 07:41 Potassium 4.6 mmol/L (3.6-5.2) 11/29/17 07:41 Chloride 101 mmol/L (98-107) 11/29/17 07:41 Carbon Dioxide 25 mmol/L (22-30) 11/29/17 07:41 Anion Gap 20 (10-20) 11/29/17 07:41 BUN 51 mg/dL (9-20) H 11/29/17 07:41 Creatinine 12.3 mg/dL (0.8-1.5) H* D 11/29/17 07:41 Est GFR ( Amer) 6 11/29/17 07:41 Est GFR (Non-Af Amer) 5 11/29/17 07:41 Random Glucose 80 mg/dL (75-110) 11/29/17 07:41 Hemoglobin A1c 4.9 % (4.2-6.5) 11/27/17 07:04 Calcium 8.7 mg/dl (8.6-10.4) 11/29/17 07:41 Phosphorus 5.3 mg/dL (2.5-4.5) H 11/29/17 07:41 Magnesium 2.7 mg/dL (1.6-2.3) H 11/29/17 07:41 Iron 40 ug/dL (49-181) L 11/27/17 21:46 TIBC 184 ug/dL (250-450) L 11/27/17 21:46 % Saturation 22 (20-55) 11/27/17 21:46 Ferritin 747.0 ng/mL 11/27/17 04:36 Total Bilirubin 0.6 mg/dL (0.2-1.3) 11/29/17 07:41 AST 16 U/L (17-59) L 11/29/17 07:41 ALT 27 U/L (21-72) 11/29/17 07:41 Alkaline Phosphatase 41 U/L (38-126) 11/29/17 07:41 Troponin I 0.0390 ng/mL (0.00-0.120) 11/27/17 00:41 NT-Pro-B Natriuret Pep 87653 pg/mL (0-450) H 11/27/17 00:41 Total Protein 6.7 g/dL (6.3-8.3) 11/29/17 07:41 Albumin 3.9 g/dL (3.5-5.0) 11/29/17 07:41 Globulin 2.8 gm/dL (2.2-3.9) 11/29/17 07:41 Albumin/Globulin Ratio 1.4 (1.0-2.1) 11/29/17 07:41 Triglycerides 101 mg/dL (0-149) D 11/27/17 04:36 Cholesterol 143 mg/dL (0-199) 11/27/17 04:36 LDL Cholesterol Direct 67 mg/dL (0-129) 11/27/17 04:36 HDL Cholesterol 30 mg/dL (30-70) 11/27/17 04:36 Lipase 179 U/L (23-300) 11/27/17 00:41 Free T4 1.11 ng/dL (0.78-2.19) 11/27/17 04:02 TSH 3rd Generation 0.63 mIU/L (0.46-4.68) 11/27/17 04:36 Attending/Attestation - Attestation I have personally seen and examined this patient.: Yes I have fully participated in the care of the patient.: Yes I have reviewed all pertinent clinical information, including history, physical exam and plan: Yes Notes (Text): 11/29/17 17:27 Patient was seen and examined at 7:45 AM. Discharge instructions were gone over with resident Dr. Espino. Hever Cannon D.O.
[2017-11-29 07:56] LABS: BASO % 0.8 % (0.0-2.0); EOS # 0.2 K/uL (0.0-0.7); EOS % 3.1 % (0.0-4.0); HEMOGLOBIN 9.4 g/dL (12.0-18.0); LYMPH # 1.4 K/uL (1.0-4.3); LYMPH % 29.4 % (20.0-40.0); MEAN CELL VOLUME 91.9 fL (80.0-94.0); MEAN CORPUSCULAR HEMOGLOBIN 32.6 pg (27.0-31.0); MEAN CORPUSCULAR HGB CONC 35.5 g/dL (33.0-37.0); MEAN PLATELET VOLUME 8.2 fL (7.2-11.7); MONO # 0.6 K/uL (0.0-0.8); MONO % 12.4 % (0.0-10.0); NEUT # 2.6 K/uL (1.8-7.0); NEUT % 54.3 % (50.0-75.0); NRBC % 0.2 % (0.0-2.0); RBC 2.89 Mil/uL (4.40-5.90); RED CELL DISTRIBUTION WIDTH 14.8 % (11.5-14.5); WHITE BLOOD COUNT 4.8 K/uL (4.8-10.8)
[2017-11-29 08:31] LABS: ALB/GLOB RATIO 1.4 (1.0-2.1); ALBUMIN 3.9 g/dL (3.5-5.0); CALCIUM 8.7 mg/dl (8.6-10.4)
[2017-11-29] MEDS: Epoetin Alfa 10,000 unit/ml Dialysis IV SCH (11:14)
--- NOTE | 2017-11-29 11:31 | CP.PCM.PN ---
Subjective - Date & Time of Evaluation Date of Evaluation: 11/29/17 Time of Evaluation: 11:29 - Subjective Subjective: seen and examined on hd estimated uf 3.5L breathing improved no cp/sob/dizziness/palpitations/n/v/d/rash/headache/f/c Objective - Vital Signs/Intake and Output Vital Signs (last 24 hours): Temp Pulse Resp BP Pulse Ox 97.3 F L 82 20 137/100 H 98 11/29/17 08:45 11/29/17 08:45 11/29/17 08:45 11/29/17 11:15 11/29/17 08:45 Intake and Output: 11/29/17 11/29/17 06:59 18:59 Intake Total 800 Balance 800 - Medications Medications: Current Medications Aspirin (Aspirin Chewable) 81 mg PO DAILY [facility] Last Admin: 11/28/17 09:10 Dose: 81 mg Calcitriol (Rocaltrol) 0.25 mcg PO DAILY [facility] Last Admin: 11/28/17 09:10 Dose: 0.25 mcg Carvedilol (Coreg) 6.25 mg PO BID [facility] Cinacalcet (Sensipar) 30 mg PO DAILY [facility] Last Admin: 11/28/17 12:20 Dose: 30 mg Epoetin Domingo (Procrit) 10,000 unit IV MWF [facility] Last Admin: 11/29/17 11:14 Dose: 10,000 unit Heparin Sodium (Porcine) (Heparin) 5,000 units SC Q12 [facility] Last Admin: 11/28/17 21:09 Dose: 5,000 units Lisinopril (Zestril) 5 mg PO DAILY [facility] Last Admin: 11/28/17 09:10 Dose: 5 mg Rosuvastatin Calcium (Crestor) 10 mg PO HS [facility] Last Admin: 11/28/17 21:09 Dose: 10 mg Vitamin B Complex/Vit C/Folic Acid (Nephro-Emi) 1 tab PO DAILY [facility] Last Admin: 11/28/17 09:10 Dose: 1 tab - Labs Labs: 11/29/17 07:41 11/29/17 07:41 PT 10.9 SECONDS (9.7-12.2) 11/27/17 00:41 INR 1.0 11/27/17 00:41 APTT 31 SECONDS (21-34) 11/27/17 00:41 - Constitutional Appears: Non-toxic, No Acute Distress - Head Exam Head Exam: NORMAL INSPECTION, NORMOCEPHALIC - Eye Exam Eye Exam: Normal appearance, PERRL - ENT Exam ENT Exam: Mucous Membranes Moist, Normal Exam - Neck Exam Neck Exam: Full ROM, Normal Inspection - Respiratory Exam Respiratory Exam: Decreased Breath Sounds, NORMAL BREATHING PATTERN - Cardiovascular Exam Cardiovascular Exam: REGULAR RHYTHM, RRR - GI/Abdominal Exam GI & Abdominal Exam: Distended, Soft - Extremities Exam Extremities Exam: Full ROM, Normal Inspection - Neurological Exam Neurological Exam: Alert, Awake, Oriented x3 - Psychiatric Exam Psychiatric exam: Normal Affect, Normal Mood - Skin Skin Exam: Dry, Intact Assessment and Plan (1) CHF (congestive heart failure) Status: Acute (2) ESRD needing dialysis Status: Acute (3) Respiratory distress Status: Acute (4) ESRD (end stage renal disease) Status: Acute (5) Hypertension Status: Acute (6) Secondary hyperparathyroidism Status: Acute (7) Severe anemia Status: Acute (8) CHF (congestive heart failure) Status: Suspected - Assessment and Plan (Free Text) Assessment: maintain hd mwf fluid restriction stable from renal standpoint
[2017-11-29 13:38] VITALS: BP 122/82; TEMP 97.8; O2SAT 100
[2017-11-29 13:54] VITALS: PULSE 51
== END 2017-11-29 13:36 | disposition home or self-care (01) | DRG 544 ==
LOC: C.ER 23:54 → C.9E 11-27 03:09 → C.5S 11-27 06:48
PROVIDERS: ADMIT Family Medicine; ATTEND Family Medicine
PROC: 5A1D70Z Performance of Urinary Filtration, Intermittent, Less than 6 Hours Per Day (ICD-10-PCS; principal; 2017-11-27)
DX: I13.2 Hypertensive heart and chronic kidney disease with heart failure and with stage 5 chronic kidney disease, or end stage renal disease (principal); N17.9 Acute kidney failure, unspecified; I50.33 Acute on chronic diastolic (congestive) heart failure; N18.6 End stage renal disease; I42.0 Dilated cardiomyopathy; I27.20 Pulmonary hypertension, unspecified; N25.81 Secondary hyperparathyroidism of renal origin; D64.9 Anemia, unspecified; Z99.2 Dependence on renal dialysis; N28.1 Cyst of kidney, acquired

== ENCOUNTER 2017-12-28 11:57 | Inpatient (IN) | payer SELFPAY ==
[2017-12-28 11:57] VITALS: BMI 25.8
--- NOTE | 2017-12-28 13:09 | C.PDOC ---
History Of Present Illness 32 year old male, whose PMHx includes HTN and Hypercholesterolemia, presents to the ED for evaluation of right-sided chest pain and left upper back pain which began 3 days ago. Patient states pain is sharp and worse with taking deep breaths. Patient denies fever, chills, cough, recent trauma/injury or history of smoking. Time Seen by Provider: 12/28/17 12:32 Chief Complaint (Nursing): Chest Pain History Per: Patient History/Exam Limitations: no limitations Onset/Duration Of Symptoms: Days (3) Current Symptoms Are (Timing): Still Present Quality: Sharp, "Pain" Exacerbating Factors: Deep Breathing Additional History Per: Patient Past Medical History Reviewed: Historical Data, Nursing Documentation, Vital Signs Vital Signs: Last Vital Signs Temp 98 F 12/28/17 14:40 Pulse 65 12/28/17 14:40 Resp 18 12/28/17 14:40 BP 83/69 L 12/28/17 14:40 Pulse Ox 98 12/28/17 14:40 - Medical History PMH: HTN, Hypercholesterolemia, End Stage Renal Disease Denies: Chronic Kidney Disease Surgical History: No Surg Hx - [facility] Procedures (11/27/17) BYPASS LEFT RADIAL ARTERY TO LOWER ARM VEIN, OPEN APPROACH (08/13/15) INSERTION OF INFUSION DEV INTO SUP VENA CAVA, PERC APPROACH (08/13/15) MEASURE CARDIAC SAMPL & PRESSURE, BILATERAL, PERC (08/13/15) PERFORMANCE OF URINARY FILTRATION, MULTIPLE (08/13/15) PLAIN RADIOGRAPHY OF R & L HEART USING L OSM CONTRAST (08/13/15) Family History: States: Unknown Family Hx - Social History Hx Alcohol Use: No Hx Substance Use: No - Immunization History Hx Tetanus Toxoid Vaccination: No Hx Influenza Vaccination: No Hx Pneumococcal Vaccination: No Review Of Systems Constitutional: Negative for: Fever, Chills Cardiovascular: Positive for: Chest Pain (right-sided ) Respiratory: Negative for: Cough Musculoskeletal: Positive for: Back Pain (left-sided, upper ) Physical Exam - Physical Exam Appears: Non-toxic, No Acute Distress Skin: Normal Color, Warm, Dry Head: Atraumatic, Normacephalic Eye(s): bilateral: Normal Inspection Oral Mucosa: Moist Neck: Supple Chest: Symmetrical, No Deformity, No Tenderness Cardiovascular: Rhythm Regular, No Murmur Respiratory: Decreased Breath Sounds (right-sided ), No Rales, No Rhonchi, No Wheezing Back: No Vertebral Tenderness, Paraspinal Tenderness (thoracic ) Extremity: Normal ROM, Capillary Refill (less than 2 seconds ) Neurological/Psych: Oriented x3, Normal Speech, Normal Cognition ED Course And Treatment - Laboratory Results Result Diagrams: 12/28/17 13:12 12/28/17 13:12 ECG: Interpreted By Me, Viewed By Me ECG Rhythm: Sinus Rhythm Interpretation Of ECG: Normal Sinus Rhythm at rate 72bpm. Normal axis. Normal intervals. Nonspecific ST/T wave changes. Rate From EC O2 Sat by Pulse Oximetry: 97 (on RA) Pulse Ox Interpretation: Normal - Other Rad CXR X-Ray: Interpreted by Me, Viewed By Me, Read By Radiologist Interpretation: HISTORY: COMPARISON: 08/14/2015. TECHNIQUE: Chest PA and lateral. FINDINGS: LINES AND TUBES: None. LUNG AND PLEURA: The lungs are well inflated and clear. There is a large right pneumothorax with compressive atelectasis of the underlying lung and mild shift of mediastinum to the left. HEART AND MEDIASTINUM: The heart is not enlarged. SKELETAL STRUCTURES: The bony structures are within normal limits for the patient's age. VISUALIZED UPPER ABDOMEN: Normal. OTHER FINDINGS: None. IMPRESSION: Large right pneumothorax with compressive atelectasis of the right lung and mild shift of mediastinum to the left. Critical findings were discussed with Dr. Jeanette Rodriguez on 12/28/2017 at 1:33 p.m. Medical Decision Making Medical Decision Making: Assessment: Chest pain Plan: * bloodwork * urinalysis * CXR * EKG * Toradol IVP * reassess and disposition Progress: Bloodwork, urinalysis, CXR, and EKG ordered and reviewed. Toradol IVP administered. finance vice president notified about case at 13:35. Dr. Monaco consulted. finance vice president at bedside and placed chest tube 1519: hospitalist notified and will admit to medical surgical floor Disposition Discussed With DrLetty: Hever Cannon Doctor Will See Patient In The: Hospital Counseled Patient/Family Regarding: Studies Performed, Diagnosis - Disposition Disposition: HOSPITALIZED Disposition Time: 15:30 Condition: FAIR Forms: [facility] (Bulgarian) - Clinical Impression Clinical Impression: Pneumothorax - Scribe Statement The provider has reviewed the documentation as recorded by the Scribe (Fernanda Cannon) Provider Attestation: All medical record entries made by the Scribe were at my direction and personally dictated by me. I have reviewed the chart and agree that the record accurately reflects my personal performance of the history, physical exam, medical decision making, and the department course for this patient. I have also personally directed, reviewed, and agree with the discharge instructions and disposition.
[2017-12-28 13:30] LABS: BASO % 0.7 % (0.0-2.0); EOS # 0.1 K/uL (0.0-0.7); EOS % 2.1 % (0.0-4.0); LYMPH # 1.5 K/uL (1.0-4.3); LYMPH % 23.4 % (20.0-40.0); MEAN CORPUSCULAR HEMOGLOBIN 31.7 pg (27.0-31.0); MEAN CORPUSCULAR HGB CONC 33.6 g/dL (33.0-37.0); MEAN PLATELET VOLUME 9.2 fL (7.2-11.7); MONO # 0.7 K/uL (0.0-0.8); MONO % 10.6 % (0.0-10.0); NEUT % 63.2 % (50.0-75.0); NRBC % 0.1 % (0.0-2.0); RBC 4.67 Mil/uL (4.40-5.90); WHITE BLOOD COUNT 6.3 K/uL (4.8-10.8)
[2017-12-28 13:33] LABS: HEMOGLOBIN 14.8 g/dL (12.0-18.0); MEAN CELL VOLUME 94.5 fL (80.0-94.0)
--- NOTE | 2017-12-28 13:35 | RAD ---
HISTORY: COMPARISON: 08/14/2015. TECHNIQUE: Chest PA and lateral FINDINGS: LINES AND TUBES: None. LUNG AND PLEURA: The lungs are well inflated and clear. There is a large right pneumothorax with compressive atelectasis of the underlying lung and mild shift of mediastinum to the left. HEART AND MEDIASTINUM: The heart is not enlarged. SKELETAL STRUCTURES: The bony structures are within normal limits for the patient's age. VISUALIZED UPPER ABDOMEN: Normal. OTHER FINDINGS: None. IMPRESSION: Large right pneumothorax with compressive atelectasis of the right lung and mild shift of mediastinum to the left. Critical findings were discussed with Dr. Jeanette Rodriguez on 12/28/2017 at 1:33 p.m.
[2017-12-28 13:55] LABS: TROPONIN I 0.013 ng/mL (0.00-0.120)
[2017-12-28 14:46] LABS: ALB/GLOB RATIO 1.5 (1.0-2.1); CALCIUM 10.4 mg/dl (8.6-10.4)
[2017-12-28] MEDS ORDERED: Sod Polystyrene Sulf 15 gm/60 ml Susp PO ONE (15:29)
--- NOTE | 2017-12-28 15:36 | RAD ---
Chest x-ray single frontal view History: Chest tube insertion. Comparison: 12/28/2017 Findings: Interval insertion of a right chest tube. Previously noted pneumothorax has resolved. Lung akhtar are otherwise clear. Heart size within normal limits. Impression: Interval insertion of a right chest tube. Previously noted pneumothorax has resolved.
[2017-12-28] MEDS ORDERED: Morphine 4 MG/ML VIAL IVP STA (15:38)
--- NOTE | 2017-12-28 15:42 | CP.PCM.HP ---
<Jeff Camacho - Last Filed: 12/28/17 17:31> History of Present Illness - History of Present Illness History of Present Illness: This is a 32 yo male, originally from [place], with past medical hx of CHF systolic/diastolic dysfunction, cardiomyopathy, pulmonary hypertension, renal cysts, and ESRD on HD, presenting today to [facility] ER with chief complaint of right-sided chest pain and shortness of breath. He stated he woke up 4 days ago with right-sided chest pain which he thought would go away on it's own. However the pain worsened, he also had dyspnea which he stated prompted him to take deep breaths. He admitted to increased shortness of breath with ambulation. He denies trauma, palpitations, abdominal pain, urinary sx, diarrhea, constipation , fevers, cough. He states he's complaint with his medications and has not missed a HD session. PMD: Jorge/JOSE in [facility] clinic Specialists: Andrews- nephrology PMH: CHF, dilated cardiomyopathy, pulmonary hypertension, renal cysts, ESRD on dialysis MWF (regular dialysis schedule of MWF at [facility] on [address]) PSH: av fistula left upper ext, vein mapping FH: father- living- no medical problems; mother- living- HTN Social hx: Denies smoking. Denies secondhand smoke. Denies drinking. Denies drug use. Born in [place]. Does not work. Fully mobile, able to do all ADLs. Allergies: NKDA Home meds: could not recall; sensipar, lisinopril?, cardizem?, per chart review nephro-ciara 1 tab qd, crestor 10mg po hs, lisinopril 5mg po qd, sensipar 30mg po qd, coreg 6.25mg po bid, calcitriol 0.25mcg po qd, asa 81mg po qd Present on Admission - Present on Admission Any Indicators Present on Admission: No Review of Systems - Constitutional Constitutional: Fatigue. absent: Chills, Fever, Sleep Apnea - EENT Eyes: absent: Blurred Vision Nose/Mouth/Throat: absent: Nasal Congestion - Cardiovascular Cardiovascular: Chest Pain, Chest Pain at Rest, Dyspnea. absent: Chest Pain with Activity, Claudication, Diaphoresis, Lightheadedness, Orthopnea, Slow Heart Rate, Syncope - Respiratory Respiratory: absent: Cough, Hemoptysis, Wheezing, Chest Congestion - Gastrointestinal Gastrointestinal: absent: Abdominal Pain, Constipation, Diarrhea, Vomiting - Genitourinary Genitourinary: absent: Dysuria - Integumentary Integumentary: absent: Bleeding Lesions - Neurological Neurological: absent: Confusion Past Patient History - Infectious Disease Hx of Infectious Diseases: None - Tetanus Immunizations Tetanus Immunization: Unknown - Past Medical History & Family History Past Medical History?: Yes - Past Social History Smoking Status: Never Smoked - CARDIAC Hx Hypercholesterolemia: Yes Hx Hypertension: Yes - PULMONARY Other/Comment: SOB A COUPLE DAYS AGO - NEUROLOGICAL Hx Neurological Disorder: No - HEENT Other/Comment: L EYE BLURRY - RENAL Hx Chronic Kidney Disease: No - ENDOCRINE/METABOLIC Hx Endocrine Disorders: No - HEMATOLOGICAL/ONCOLOGICAL Hx Blood Disorders: No - INTEGUMENTARY Hx Dermatological Problems: No - MUSCULOSKELETAL/RHEUMATOLOGICAL Hx Musculoskeletal Disorders: No Hx Falls: No - GASTROINTESTINAL Hx Gastrointestinal Disorders: No - GENITOURINARY/GYNECOLOGICAL Other/Comment: Dilaysis ; MWF - PSYCHIATRIC Hx Substance Use: No - SURGICAL HISTORY Hx Surgeries: No Other/Comment: Lt. arm AV shunt insertion - ANESTHESIA Hx Anesthesia: No Hx Anesthesia Reactions: No Meds Allergies/Adverse Reactions: Allergies Allergy/AdvReac Type Severity Reaction Status Date / Time No Known Allergies Allergy Verified 12/28/17 12:00 Physical Exam - Constitutional Appears: Well, Non-toxic, No Acute Distress - Head Exam Head Exam: ATRAUMATIC, NORMAL INSPECTION - Eye Exam Eye Exam: EOMI Pupil Exam: PERRL - ENT Exam ENT Exam: Mucous Membranes Moist - Neck Exam Neck exam: Positive for: Full Rom, Normal Inspection. Negative for: Lymphadenopathy, Tenderness, Thyromegaly - Respiratory Exam Respiratory Exam: Chest Wall Tenderness, Decreased Breath Sounds, NORMAL BREATHING PATTERN. absent: Rales, Rhonchi, Wheezes Additional comments: decreased breath sounds on right side - Cardiovascular Exam Cardiovascular Exam: +S1, +S2. absent: Bradycardia, Tachycardia, REGULAR RHYTHM , JVD, Systolic Murmur Additional comments: +s3 - GI/Abdominal Exam GI & Abdominal Exam: Normal Bowel Sounds, Soft. absent: Distended, Firm, Guarding, Organomegaly, Pulsatile Mass, Rebound, Tenderness - Extremities Exam Extremities exam: Positive for: full ROM, normal capillary refill, normal inspection. Negative for: calf tenderness - Back Exam Back exam: absent: CVA tenderness (L), CVA tenderness (R) - Neurological Exam Neurological exam: Alert, CN II-XII Intact, Oriented x3 - Psychiatric Exam Psychiatric exam: Flat Affect - Skin Skin Exam: Intact, Normal Color, Warm Results - Vital Signs Recent Vital Signs: Last Vital Signs Temp 98 F 12/28/17 14:40 Pulse 65 12/28/17 14:40 Resp 18 12/28/17 14:40 BP 83/69 L 12/28/17 14:40 Pulse Ox 97 12/28/17 15:31 - Labs Result Diagrams: 12/28/17 13:12 12/28/17 13:12 Labs: Laboratory Results - last 24 hr 12/28/17 12/28/17 13:12 13:12 WBC 6.3 RBC 4.67 Hgb 14.8 D Hct 44.2 MCV 94.5 H D MCH 31.7 H MCHC 33.6 RDW 15.0 H Plt Count 185 MPV 9.2 Neut % (Auto) 63.2 Lymph % (Auto) 23.4 [place] % (Auto) 10.6 H Eos % (Auto) 2.1 Baso % (Auto) 0.7 Neut # (Auto) 4.0 Lymph # (Auto) 1.5 [place] # (Auto) 0.7 Eos # (Auto) 0.1 Baso # (Auto) 0.0 Sodium 145 Potassium 5.9 H Chloride 96 L Carbon Dioxide 28 Anion Gap 26 H BUN 43 H Creatinine 9.9 H* Est GFR ( Amer) 7 Est GFR (Non-Af Amer) 6 Random Glucose 84 Calcium 10.4 Total Bilirubin 0.8 AST 40 ALT 40 Alkaline Phosphatase 50 Total Creatine Kinase 67 Troponin I 0.0130 Total Protein 8.4 H Albumin 5.0 D Globulin 3.4 Albumin/Globulin Ratio 1.5 Assessment & Plan - Assessment and Plan (Free Text) Assessment: This is a 32 yo male, originally from [place], with past medical hx of CHF with reduced ejection fraction, cardiomyopathy, pulmonary hypertension, renal cysts, and ESRD on HD, presenting today to [facility] ER with chief complaint of right-sided chest pain and shortness of breath now with pneumothorax: RIGHT PNEUMOTHORAX Consult thoracic surgeon, Dr Monaco * s/p chest tube placed in ED. Repeat CXR shows re-expansion of right lung. Meds: Ketorolac 30mg IVP Q6H PRN for severe pain Ketorolac 15mg IVP Q6H PRN for moderate pain HYPOTENSIVE Fluid challenge CHF - Systolic and Diastolic -Cardiac cath done in 08/2015 showed severe dilated cardiomyopathy and severe left ventricular systolic dysfunction, diastolic dysfunction and moderate pulmonary hypertension. Patient was placed on lifevest. -Echo from 01/2016 showed nomal EF - at that time lifevest was discontinued -Echo 10/2017 showed left ventricle is moderately dilated, moderate concentric left ventricle hypertrophy, systolic function is mildly impaired, EF 45%, grade II-pseudonormal filling, elevated left atrial pressure, right ventricle systolic function normal, left atrium moderately dilated, mild aortic regurgitation, mitral regurgitation mild, moderate tricuspid regurgitation, moderate pulmonary hypertension Meds: Carvedilol 6.25mg PO BID (hold for systolic < 100 and/or HR < 60) ASA 81mg PO BID Lisinopril 5mg PO QD Crestor 10mg PO HS ESRD ON HD Via right AV fistula left upper ext 08/04 to polycystic kidney disease? See's [employer], Dr Sparrow outpatient Regular dialysis schedule of MWF at [facility] on [address] Consult NephroDr Sparrow Meds: Cont home med calcitriol 0.25mcg po qd Cont home med sensipar 30mg po qd Cont home med Nephro-ciara 1 tab po qd PULMONARY HTN Follow up Pulm outpatient PROLONGED QTc EKG showed NSR with QTc at 460 HYPERKALEMIA HD tomorrow Monitor on tele for 24 hours PROPHYLAXIS Protonix 40mg PO QD SCDs - DVT risk score of 1 Renal Diet/Heart healthy <Hever Cannon - Last Filed: 12/28/17 22:26> Results - Vital Signs Recent Vital Signs: Last Vital Signs Temp 98 F 12/28/17 19:00 Pulse 55 L 12/28/17 19:24 Resp 18 12/28/17 19:24 BP 83/40 L 12/28/17 19:00 Pulse Ox 100 12/28/17 19:24 - Labs Result Diagrams: 12/28/17 13:12 12/28/17 22:00 Labs: Laboratory Results - last 24 hr 12/28/17 12/28/17 12/28/17 13:12 13:12 18:52 WBC 6.3 RBC 4.67 Hgb 14.8 D Hct 44.2 MCV 94.5 H D MCH 31.7 H MCHC 33.6 RDW 15.0 H Plt Count 185 MPV 9.2 Neut % (Auto) 63.2 Lymph % (Auto) 23.4 [place] % (Auto) 10.6 H Eos % (Auto) 2.1 Baso % (Auto) 0.7 Neut # (Auto) 4.0 Lymph # (Auto) 1.5 [place] # (Auto) 0.7 Eos # (Auto) 0.1 Baso # (Auto) 0.0 Sodium 145 Potassium 5.9 H Chloride 96 L Carbon Dioxide 28 Anion Gap 26 H BUN 43 H Creatinine 9.9 H* Est GFR ( Amer) 7 Est GFR (Non-Af Amer) 6 Random Glucose 84 Lactic Acid 1.0 Calcium 10.4 Total Bilirubin 0.8 AST 40 ALT 40 Alkaline Phosphatase 50 Total Creatine Kinase 67 Troponin I 0.0130 Total Protein 8.4 H Albumin 5.0 D Globulin 3.4 Albumin/Globulin Ratio 1.5 12/28/17 22:00 WBC RBC Hgb Hct MCV MCH MCHC RDW Plt Count MPV Neut % (Auto) Lymph % (Auto) [place] % (Auto) Eos % (Auto) Baso % (Auto) Neut # (Auto) Lymph # (Auto) [place] # (Auto) Eos # (Auto) Baso # (Auto) Sodium 141 Potassium 6.1 H Chloride 99 Carbon Dioxide 27 Anion Gap 20 BUN 50 H Creatinine 10.4 H* Est GFR ( Amer) 7 Est GFR (Non-Af Amer) 6 Random Glucose 124 H Lactic Acid Calcium 9.1 Total Bilirubin AST ALT Alkaline Phosphatase Total Creatine Kinase Troponin I Total Protein Albumin Globulin Albumin/Globulin Ratio Attending/Attestation - Attestation I have personally seen and examined this patient.: Yes I have fully participated in the care of the patient.: Yes I have reviewed all pertinent clinical information: Yes Notes (Text): 12/28/17 22:22 Patient was seen and examined in the ER Bed #7 shortly after resident. History, Physical, Assessment and Plan were gone over with the resident It was noted at the time of my exam, that patient's blood pressure was low with SBP in the 70s and Diastolic in the 40s. I believe that this may have been secondary to the Fentanyl that was given to him for pain. Fluid bolus given to patient and his blood pressure started to improve but have to be careful of further fluid challenges considering his Dilated Cardiomyopathy and we don't want to cause pulmonary congestion considering the pneumothorax. ICU Evaluatoin was saught and discussed with Dr. Kathia Cannon, who will observe patient in the ICU under Telemetry until blood pressure stabilizes. Once patient reached the ICU, I spoke with patient's and she was updated as to patient diagnosis and progress. Hever Cannon D.O.
--- NOTE | 2017-12-28 15:44 | CP.PCM.CON ---
History of Present Illness - History of Present Illness History of Present Illness: Thoracic Surgery Consult for Dr. Monaco This is a 32M with a PMH of CHF, Cardiomyopathy, Polycystic kindey disease, ESRD on dialysis who presented due to chest pain that began 4 days ago and woke him from sleep the pain is worse when he takes deep breaths. He had a chest xray in the ED which was significant for a massive right sided pneumothorax. He reports chest pain and SOB. He deniesa ny fevers orchills at home. He denies any coughing, smoking, or trauma. PMH: See above PSH: AVF ALL: NKDA Social: Denies etoh, drugs, tobacco Review of Systems - Review of Systems All systems: reviewed and no additional remarkable complaints except - Cardiovascular Cardiovascular: Chest Pain - Respiratory Respiratory: Dyspnea Past Patient History - Infectious Disease Hx of Infectious Diseases: None - Tetanus Immunizations Tetanus Immunization: Unknown - Past Medical History & Family History Past Medical History?: Yes - Past Social History Smoking Status: Never Smoked - CARDIAC Hx Hypercholesterolemia: Yes Hx Hypertension: Yes - PULMONARY Other/Comment: SOB A COUPLE DAYS AGO - NEUROLOGICAL Hx Neurological Disorder: No - HEENT Other/Comment: L EYE BLURRY - RENAL Hx Chronic Kidney Disease: No - ENDOCRINE/METABOLIC Hx Endocrine Disorders: No - HEMATOLOGICAL/ONCOLOGICAL Hx Blood Disorders: No - INTEGUMENTARY Hx Dermatological Problems: No - MUSCULOSKELETAL/RHEUMATOLOGICAL Hx Musculoskeletal Disorders: No Hx Falls: No - GASTROINTESTINAL Hx Gastrointestinal Disorders: No - GENITOURINARY/GYNECOLOGICAL Other/Comment: Dilaysis ; MWF - PSYCHIATRIC Hx Substance Use: No - SURGICAL HISTORY Hx Surgeries: No Other/Comment: Lt. arm AV shunt insertion - ANESTHESIA Hx Anesthesia: No Hx Anesthesia Reactions: No Meds Allergies/Adverse Reactions: Allergies Allergy/AdvReac Type Severity Reaction Status Date / Time No Known Allergies Allergy Verified 12/28/17 12:00 - Medications Medications: Current Medications Morphine Sulfate (Morphine) 4 mg IVP STAT STA Stop: 12/28/17 15:39 Physical Exam - Constitutional Appears: Non-toxic, No Acute Distress - Head Exam Head Exam: ATRAUMATIC, NORMOCEPHALIC - Eye Exam Eye Exam: EOMI - ENT Exam ENT Exam: Mucous Membranes Moist - Respiratory Exam Respiratory Exam: Decreased Breath Sounds - Cardiovascular Exam Cardiovascular Exam: Bradycardia - GI/Abdominal Exam GI & Abdominal Exam: Soft. absent: Tenderness - Extremities Exam Additional comments: LEft sided AVF - Skin Skin Exam: Dry, Intact, Normal Color Results - Vital Signs Recent Vital Signs: Last Vital Signs Temp 98 F 12/28/17 14:40 Pulse 65 12/28/17 14:40 Resp 18 12/28/17 14:40 BP 83/69 L 12/28/17 14:40 Pulse Ox 97 12/28/17 15:31 - Labs Result Diagrams: 12/28/17 13:12 12/28/17 13:12 Labs: Laboratory Results - last 24 hr 12/28/17 12/28/17 13:12 13:12 WBC 6.3 RBC 4.67 Hgb 14.8 D Hct 44.2 MCV 94.5 H D MCH 31.7 H MCHC 33.6 RDW 15.0 H Plt Count 185 MPV 9.2 Neut % (Auto) 63.2 Lymph % (Auto) 23.4 [place] % (Auto) 10.6 H Eos % (Auto) 2.1 Baso % (Auto) 0.7 Neut # (Auto) 4.0 Lymph # (Auto) 1.5 [place] # (Auto) 0.7 Eos # (Auto) 0.1 Baso # (Auto) 0.0 Sodium 145 Potassium 5.9 H Chloride 96 L Carbon Dioxide 28 Anion Gap 26 H BUN 43 H Creatinine 9.9 H* Est GFR ( Amer) 7 Est GFR (Non-Af Amer) 6 Random Glucose 84 Calcium 10.4 Total Bilirubin 0.8 AST 40 ALT 40 Alkaline Phosphatase 50 Total Creatine Kinase 67 Troponin I 0.0130 Total Protein 8.4 H Albumin 5.0 D Globulin 3.4 Albumin/Globulin Ratio 1.5 Assessment & Plan - Assessment and Plan (Free Text) Assessment: 32M wth spontaneous pneumothorax Urgent chest tube CXR CT scan with contrast Pain control Chest tube to suction D/W Dr. Carlos Enrique King PGY2
--- NOTE | 2017-12-28 15:50 | PCM.PROC ---
Procedures Attestation:: I certify that I have explained the specified Operation(s) or Procedure(s), risks, benefits and reasonable alternatives to the Patient and/or other person responsible. The opportunity was given to ask questions and all questions answered - Chest Tube Chest Tube Location: Mid-Axillary Right Chest Tube Procedure: Chlorhexidine Tube Sutured to Skin: Yes Sterile Dressing Applied: Yes Anesthesia: Lidocaine 1% Volume Anesthetic (mls): 15 Incision Made With: #11 blade Post Procedure: sutured to skin, sterile dressing applied, air occlusive dressing [place] of Air Barber: Yes Tube Drainage: none Post Procedure CXR?: Yes Patient Tolerated Procedure: Yes
[2017-12-28] MEDS ORDERED: Sod Polystyrene Sulf 15 gm/60 ml Susp ONE (16:02)
[2017-12-28] MEDS ORDERED: Morphine 4 MG/ML VIAL ONE (16:02)
--- NOTE | 2017-12-28 17:06 | RAD ---
HISTORY: chest tube COMPARISON: 12/28/2017 at 3:13 p.m.. FINDINGS: LUNGS: The lungs are well inflated and clear. There is interval re-expansion of the right lung. PLEURA: The right chest tube is mildly kinked and terminates in the mid pleural cavity. No significant pleural effusion identified, no pneumothorax apparent. CARDIOVASCULAR: Normal. OSSEOUS STRUCTURES: No significant abnormalities. VISUALIZED UPPER ABDOMEN: Normal. OTHER FINDINGS: None. IMPRESSION: Status post insertion of right chest tube, mild kink in the tube which terminates in the mid pleural cavity, no definite evidence for right pneumothorax. No acute findings.
[2017-12-28] MEDS ORDERED: Iodixanol 320 MG/ML 100 ML BOTTLE IV ONE (17:13)
[2017-12-28] MEDS ORDERED: Sodium Chloride 0.9% 1,000 ML IV SCH (18:00)
--- NOTE | 2017-12-28 18:39 | CP.PCM.CON ---
<Blanca Oshea - Last Filed: 12/28/17 18:23> History of Present Illness - History of Present Illness History of Present Illness: Critical Care Consult Note This is a 32 year old male with PMHx of ESRD on HD MWF- Left AVF, Hx Dilated Cardiomyopathy with HF with rEF (45%), Hx of QTc prolongation, Hx Pulmonary HTN, Hx Renal Cysts, and Anemia of Chronic Disease. ICU was consulted for hypotension after chest tube placement for right spontaneous pneumothorax, which has Patient was administered morphine and fentanyl for chest tube placement. Vitals on examine were 84/51, repeat on opposite arm 72/36. Patient was given 500cc bolus by primary team. Patient is otherwise able to speak in full sentences, denied any dizziness, shortness of breath, chest pain, diaphoresis, nausea. Patient will be observed in ICU to monitor blood pressure. PMD: Patel/JOSE in [facility] Specialists: Andrews- nephrology PMHx: CHF, dilated cardiomyopathy, pulmonary hypertension, renal cysts, ESRD on dialysis MWF (regular dialysis schedule of MWF at [facility] on [address], L AVF) PSHx: av fistula left upper ext, vein mapping Meds: could not recall; per chart review: ASA 81mg PO daily, Coreg 6.25mg PO BID ,Lisinopril 5mg PO daily, Crestor 10mg PO HS, Calcitriol 0.25mcg PO daily, Sensipar 30mg PO daily, Nephro-Ciara- take 1 tablet by mouth daily Allergies: NKDA FHx: father- living- no medical problems; mother- living- HTN Social hx: Denies smoking. Denies secondhand smoke. Denies drinking. Denies drug use. Born in [place]. Does not work. Fully mobile, able to do all ADLs. Past Patient History - Infectious Disease Hx of Infectious Diseases: None - Tetanus Immunizations Tetanus Immunization: Unknown - Past Medical History & Family History Past Medical History?: Yes - Past Social History Smoking Status: Never Smoked - CARDIAC Hx Hypercholesterolemia: Yes Hx Hypertension: Yes - PULMONARY Other/Comment: SOB A COUPLE DAYS AGO - NEUROLOGICAL Hx Neurological Disorder: No - HEENT Other/Comment: L EYE BLURRY - RENAL Hx Chronic Kidney Disease: No - ENDOCRINE/METABOLIC Hx Endocrine Disorders: No - HEMATOLOGICAL/ONCOLOGICAL Hx Blood Disorders: No - INTEGUMENTARY Hx Dermatological Problems: No - MUSCULOSKELETAL/RHEUMATOLOGICAL Hx Musculoskeletal Disorders: No Hx Falls: No - GASTROINTESTINAL Hx Gastrointestinal Disorders: No - GENITOURINARY/GYNECOLOGICAL Other/Comment: Dilaysis ; MWF - PSYCHIATRIC Hx Substance Use: No - SURGICAL HISTORY Hx Surgeries: No Other/Comment: Lt. arm AV shunt insertion - ANESTHESIA Hx Anesthesia: No Hx Anesthesia Reactions: No Meds Allergies/Adverse Reactions: Allergies Allergy/AdvReac Type Severity Reaction Status Date / Time No Known Allergies Allergy Verified 12/28/17 12:00 - Medications Medications: Current Medications Aspirin (Aspirin Chewable) 81 mg PO DAILY [facility] Calcitriol (Rocaltrol) 0.25 mcg PO DAILY [facility] Carvedilol (Coreg) 6.25 mg PO BID [facility] Cinacalcet (Sensipar) 30 mg PO DAILY [facility] Hydromorphone HCl (Dilaudid) 0.5 mg IVP Q6H PRN PRN Reason: Pain, severe (8-10) Lisinopril (Zestril) 5 mg PO DAILY [facility] Pantoprazole Sodium (Protonix Ec Tab) 40 mg PO DAILY [facility] Rosuvastatin Calcium (Crestor) 10 mg PO HS [facility] Vitamin B Complex/Vit C/Folic Acid (Nephro-Ciara) 1 tab PO DAILY [facility] Physical Exam - Constitutional Appears: No Acute Distress - Head Exam Head Exam: ATRAUMATIC, NORMAL INSPECTION - Eye Exam Eye Exam: EOMI, Normal appearance, PERRL Pupil Exam: NORMAL ACCOMODATION - ENT Exam ENT Exam: Mucous Membranes Dry - Respiratory Exam Respiratory Exam: NORMAL BREATHING PATTERN - Cardiovascular Exam Cardiovascular Exam: Bradycardia Additional comments: CHEST TUBE INSERTED Right mid axillary - GI/Abdominal Exam GI & Abdominal Exam: Normal Bowel Sounds, Soft. absent: Distended, Tenderness - Rectal Exam Rectal Exam: Deferred - Extremities Exam Extremities exam: Positive for: normal inspection, pedal pulses present. Negative for: pedal edema, tenderness Additional comments: Left AVF + thrill - Back Exam Back exam: NORMAL INSPECTION - Neurological Exam Neurological exam: Alert, Oriented x3 - Psychiatric Exam Psychiatric exam: Normal Affect, Normal Mood - Skin Skin Exam: Dry, Intact, Normal Color, Warm Results - Vital Signs Recent Vital Signs: Last Vital Signs Temp 98 F 12/28/17 17:54 Pulse 40 L 12/28/17 17:54 Resp 18 12/28/17 17:54 BP 72/36 L 12/28/17 17:54 Pulse Ox 100 12/28/17 17:54 - Labs Result Diagrams: 12/28/17 13:12 12/28/17 13:12 Labs: Laboratory Results - last 24 hr 12/28/17 12/28/17 13:12 13:12 WBC 6.3 RBC 4.67 Hgb 14.8 D Hct 44.2 MCV 94.5 H D MCH 31.7 H MCHC 33.6 RDW 15.0 H Plt Count 185 MPV 9.2 Neut % (Auto) 63.2 Lymph % (Auto) 23.4 [place] % (Auto) 10.6 H Eos % (Auto) 2.1 Baso % (Auto) 0.7 Neut # (Auto) 4.0 Lymph # (Auto) 1.5 [place] # (Auto) 0.7 Eos # (Auto) 0.1 Baso # (Auto) 0.0 Sodium 145 Potassium 5.9 H Chloride 96 L Carbon Dioxide 28 Anion Gap 26 H BUN 43 H Creatinine 9.9 H* Est GFR ( Amer) 7 Est GFR (Non-Af Amer) 6 Random Glucose 84 Calcium 10.4 Total Bilirubin 0.8 AST 40 ALT 40 Alkaline Phosphatase 50 Total Creatine Kinase 67 Troponin I 0.0130 Total Protein 8.4 H Albumin 5.0 D Globulin 3.4 Albumin/Globulin Ratio 1.5 Assessment & Plan - Assessment and Plan (Free Text) Assessment: This is a 32 year old male with PMHx of ESRD on HD MWF- Left AVF, Hx Dilated Cardiomyopathy with HF with rEF (45%), Hx of QTc prolongation, Hx Pulmonary HTN , Hx Renal Cysts, and Anemia of Chronic Disease. ICU was consulted for hypotension after chest tube placement for right spontaneous pneumothorax, which has Patient was administered morphine and fentanyl for chest tube placement. Patient will be observed in ICU to monitor blood pressure. Plan: SPONTANEOUS RIGHT PNEUMOTHORAX Consult thoracic surgeon, Dr Monaco * s/p chest tube placed in 12/28/17. Repeat CXR shows re-expansion of right lung * CT CHEST ORDERED * THALIA, alpha - antitrypsin, HIV -pending Meds: Dilaudid 0.5mg IVP Q6H PRN for pain HYPOTENSION 500cc bolus given Monitor in ICU HF with rEF- Systolic and Diastolic -Cardiac cath done in 08/2015 showed severe dilated cardiomyopathy and severe left ventricular systolic dysfunction, diastolic dysfunction and moderate pulmonary hypertension. Patient was placed on lifevest. -Echo from 01/2016 showed nomal EF - at that time lifevest was discontinued -Echo 10/2017 showed left ventricle is moderately dilated, moderate concentric left ventricle hypertrophy, systolic function is mildly impaired, EF 45%, grade II-pseudonormal filling, elevated left atrial pressure, right ventricle systolic function normal, left atrium moderately dilated, mild aortic regurgitation, mitral regurgitation mild, moderate tricuspid regurgitation, moderate pulmonary hypertension Meds: Carvedilol 6.25mg PO BID (hold for systolic < 100 and/or HR < 60), Lisinopril 5mg PO QD - HELD FOR HYPOTENSION ASA 81mg PO daily Crestor 10mg PO HS ESRD ON HD Consult Nephro, Dr Sparrow Via left AV fistula 08/04 to polycystic kidney disease? See's [employer] Library Clerk, Dr Sparrow outpatient Regular dialysis schedule of MWF at [facility] on [address] Meds: Cont home med calcitriol 0.25mcg po qd Cont home med sensipar 30mg po qd Cont home med Nephro-ciara 1 tab po qd PULMONARY HTN Follow up Pulm outpatient Hx PROLONGED QTc EKG showed NSR with QTc at 460 - Continue to monitor HYPERKALEMIA HD tomorrow Monitor on tele for 24 hours PROPHYLAXIS Protonix 40mg PO QD SCDs - DVT risk score of 1, VTE - not indicated Renal Diet/Heart healthy Disposition: Patient will be monitored in the ICU, under tele observation. Will continue to monitor Hypotension. Blanca Trujillo Dr., DO, PGY-1 <Elena Cannon M - Last Filed: 12/28/17 20:50> Meds - Medications Medications: Current Medications Aspirin (Aspirin Chewable) 81 mg PO DAILY [facility] Calcitriol (Rocaltrol) 0.25 mcg PO DAILY [facility] Carvedilol (Coreg) 6.25 mg PO BID [facility] Cinacalcet (Sensipar) 30 mg PO DAILY [facility] Hydromorphone HCl (Dilaudid) 0.5 mg IVP Q6H PRN PRN Reason: Pain, severe (8-10) Lisinopril (Zestril) 5 mg PO DAILY [facility] Pantoprazole Sodium (Protonix Ec Tab) 40 mg PO DAILY [facility] Rosuvastatin Calcium (Crestor) 10 mg PO HS [facility] Vitamin B Complex/Vit C/Folic Acid (Nephro-Ciara) 1 tab PO DAILY [facility] Results - Vital Signs Recent Vital Signs: Last Vital Signs Temp 98 F 12/28/17 19:00 Pulse 55 L 12/28/17 19:24 Resp 18 12/28/17 19:24 BP 83/40 L 12/28/17 19:00 Pulse Ox 100 12/28/17 19:24 - Labs Result Diagrams: 12/28/17 13:12 12/28/17 13:12 Labs: Laboratory Results - last 24 hr 12/28/17 12/28/17 12/28/17 13:12 13:12 18:52 WBC 6.3 RBC 4.67 Hgb 14.8 D Hct 44.2 MCV 94.5 H D MCH 31.7 H MCHC 33.6 RDW 15.0 H Plt Count 185 MPV 9.2 Neut % (Auto) 63.2 Lymph % (Auto) 23.4 [place] % (Auto) 10.6 H Eos % (Auto) 2.1 Baso % (Auto) 0.7 Neut # (Auto) 4.0 Lymph # (Auto) 1.5 [place] # (Auto) 0.7 Eos # (Auto) 0.1 Baso # (Auto) 0.0 Sodium 145 Potassium 5.9 H Chloride 96 L Carbon Dioxide 28 Anion Gap 26 H BUN 43 H Creatinine 9.9 H* Est GFR ( Amer) 7 Est GFR (Non-Af Amer) 6 Random Glucose 84 Lactic Acid 1.0 Calcium 10.4 Total Bilirubin 0.8 AST 40 ALT 40 Alkaline Phosphatase 50 Total Creatine Kinase 67 Troponin I 0.0130 Total Protein 8.4 H Albumin 5.0 D Globulin 3.4 Albumin/Globulin Ratio 1.5 Assessment & Plan - Assessment and Plan (Free Text) Plan: Above patient seen and examined at bedside with above resident. Patient remains hemodynamically stable. Above resident documentd my clinical findings and management. - Date & Time Date: 12/28/17 Time: 20:50
[2017-12-28 22:17] LABS: CALCIUM 9.1 mg/dl (8.6-10.4)
[2017-12-29 06:20] LABS: BASO % 0.4 % (0.0-2.0); EOS # 0.1 K/uL (0.0-0.7); EOS % 1.1 % (0.0-4.0); HEMOGLOBIN 13.3 g/dL (12.0-18.0); LYMPH # 1.3 K/uL (1.0-4.3); LYMPH % 16.7 % (20.0-40.0); MEAN CELL VOLUME 95.2 fL (80.0-94.0); MEAN CORPUSCULAR HEMOGLOBIN 32.3 pg (27.0-31.0); MEAN CORPUSCULAR HGB CONC 33.9 g/dL (33.0-37.0); MEAN PLATELET VOLUME 9.2 fL (7.2-11.7); MONO # 0.8 K/uL (0.0-0.8); NEUT # 5.3 K/uL (1.8-7.0); NEUT % 70.8 % (50.0-75.0); RBC 4.11 Mil/uL (4.40-5.90); WHITE BLOOD COUNT 7.5 K/uL (4.8-10.8)
[2017-12-29 06:42] LABS: ALB/GLOB RATIO 1.4 (1.0-2.1); ALBUMIN 4.2 g/dL (3.5-5.0); CALCIUM 9.6 mg/dl (8.6-10.4)
[2017-12-29] MEDS ORDERED: Sod Polystyrene Sulf 15 gm/60 ml Susp PO ONE (08:16)
[2017-12-29] MEDS: HYDROmorphone 0.5 mg/0.5 ml ISec IVP PRN ×2 (08:22→17:08)
--- NOTE | 2017-12-29 08:38 | CT ---
PROCEDURE: CT Chest with contrast HISTORY: Spontaneous pneumo COMPARISON: None. TECHNIQUE: Contiguous axial images were obtained through the chest with intravenous contrast enhancement. Sagittal and coronal reconstructions were performed. IV contrast: 100 mL Visipaque 320 Radiation dose (DLP): 249.00 mGy-cm. This CT exam was performed using one or more of the following dose reduction techniques: Automated exposure control, adjustment of the mA and/or kV according to patient size, and/or use of iterative reconstruction technique. FINDINGS: LUNGS: No pulmonary infiltrate. Trace right pneumothorax. Right chest tube noted extending to apex. Subcutaneous emphysema over right lateral chest wall. No left pneumothorax. No pleural effusion. No pulmonary mass. MEDIASTINUM: Unremarkable thoracic aorta. No aneurysm or dissection. Normal sized heart. Main pulmonary artery unremarkable. No vascular congestion. No lymphadenopathy. 1.6 cm mass in right lobe of thyroid. Correlate with thyroid ultrasound examination on a nonemergent basis. PLEURA: As above BONES: No fracture. No destructive lesion. UPPER ABDOMEN: Two nonspecific small low-density masses in left lobe of liver, 8 mm and 9 mm, respectively. OTHER FINDINGS: None. IMPRESSION: Right chest tube. Trace right pneumothorax. Minimal right lateral chest wall subcutaneous emphysema. Right lobe thyroid nodule. Correlate with thyroid ultrasound examination. Preliminary interpretation of this examination was reported by [employer] [facility] [facility] at 7:37 p.m. on 12/28/2017. There is concurrence of this report with the preliminary interpretation.
--- NOTE | 2017-12-29 08:45 | CP.PCM.PN ---
<Veronica Swanson - Last Filed: 12/29/17 08:42> Subjective - Date & Time of Evaluation Date of Evaluation: 12/29/17 Time of Evaluation: 08:00 - Subjective Subjective: Patient was seen and examined at bedside this morning. He stated his breathing has improved from yesterday but he has a lot of pain around the chest tube insertion site. He denied chest pain, or palpitations. He is eating well. He denied fever/chills. He had no new complaints today. Objective - Vital Signs/Intake and Output Vital Signs (last 24 hours): Temp Pulse Resp BP Pulse Ox 99 F 47 L 18 130/98 H 98 12/29/17 06:00 12/29/17 06:00 12/29/17 06:00 12/29/17 06:00 12/29/17 06:00 Intake and Output: 12/29/17 12/29/17 06:59 18:59 Intake Total 400 Output Total 5 Balance 395 - Medications Medications: Current Medications Aspirin (Aspirin Chewable) 81 mg PO DAILY [facility] Calcitriol (Rocaltrol) 0.25 mcg PO DAILY [facility] Carvedilol (Coreg) 6.25 mg PO BID [facility] Cinacalcet (Sensipar) 30 mg PO DAILY [facility] Hydromorphone HCl (Dilaudid) 0.5 mg IVP Q6H PRN PRN Reason: Pain, severe (8-10) Last Admin: 12/29/17 08:22 Dose: 0.5 mg Lisinopril (Zestril) 5 mg PO DAILY [facility] Pantoprazole Sodium (Protonix Ec Tab) 40 mg PO DAILY [facility] Rosuvastatin Calcium (Crestor) 10 mg PO HS [facility] Last Admin: 12/28/17 21:45 Dose: 10 mg Vitamin B Complex/Vit C/Folic Acid (Nephro-Ciara) 1 tab PO DAILY [facility] - Labs Labs: 12/29/17 06:14 12/29/17 06:14 - Constitutional Appears: Non-toxic, No Acute Distress - Head Exam Head Exam: ATRAUMATIC, NORMAL INSPECTION - Eye Exam Eye Exam: EOMI, PERRL Pupil Exam: NORMAL ACCOMODATION - ENT Exam ENT Exam: Mucous Membranes Moist - Respiratory Exam Respiratory Exam: Decreased Breath Sounds, NORMAL BREATHING PATTERN. absent: Wheezes Additional comments: minimal to no breath sounds at the base of the right lung. good breath sounds at the apex. - Cardiovascular Exam Cardiovascular Exam: Bradycardia, REGULAR RHYTHM, +S1, +S2 - GI/Abdominal Exam GI & Abdominal Exam: Soft, Normal Bowel Sounds. absent: Distended, Firm, Guarding, Tenderness - Extremities Exam Extremities Exam: Normal Inspection - Back Exam Back Exam: NORMAL INSPECTION - Neurological Exam Neurological Exam: Alert, Awake, Oriented x3 - Psychiatric Exam Psychiatric exam: Normal Affect, Normal Mood Assessment and Plan - Assessment and Plan (Free Text) Assessment: Assessment: This is a 32 yo male, originally from [place], with past medical hx of CHF with reduced ejection fraction, cardiomyopathy, pulmonary hypertension, renal cysts, and ESRD on HD, presenting today to [facility] ER with chief complaint of right-sided chest pain and shortness of breath now with pneumothorax: RIGHT PNEUMOTHORAX Consult thoracic surgeon, Dr Monaco * s/p chest tube placed in ED. Repeat CXR shows re-expansion of right lung. * f/u repeat chest X ray 12/29 * Chest CT -> trace right pneumothorax, with minimal subcutaneous emphysema Meds: Ketorolac 30mg IVP Q6H PRN for severe pain Ketorolac 15mg IVP Q6H PRN for moderate pain HYPOTENSIVE Resolved Fluid challenge CHF - Systolic and Diastolic -Cardiac cath done in 08/2015 showed severe dilated cardiomyopathy and severe left ventricular systolic dysfunction, diastolic dysfunction and moderate pulmonary hypertension. Patient was placed on lifevest. -Echo from 01/2016 showed nomal EF - at that time lifevest was discontinued -Echo 10/2017 showed left ventricle is moderately dilated, moderate concentric left ventricle hypertrophy, systolic function is mildly impaired, EF 45%, grade II-pseudonormal filling, elevated left atrial pressure, right ventricle systolic function normal, left atrium moderately dilated, mild aortic regurgitation, mitral regurgitation mild, moderate tricuspid regurgitation, moderate pulmonary hypertension Meds: Carvedilol 6.25mg PO BID (hold for systolic < 100 and/or HR < 60) - on hold ASA 81mg PO BID Lisinopril 5mg PO QD - on hold Crestor 10mg PO HS ESRD ON HD Dialysis today - will repeat BMP after dialysis to monitor electrolytes Via right AV fistula left upper ext 2/2 to polycystic kidney disease? See's Railcar Mechanic, Dr Sparrow outpatient Regular dialysis schedule of MWF at [facility] on [address] Consult Nephro, Dr Andrews Meds: Cont home med calcitriol 0.25mcg po qd Cont home med sensipar 30mg po qd Cont home med Nephro-ciara 1 tab po qd PULMONARY HTN Follow up Pulm outpatient PROLONGED QTc EKG showed NSR with QTc at 460 Thyroid Nodule Found on chest CT Will need US outpatient PROPHYLAXIS Protonix 40mg PO QD SCDs - DVT risk score of 1 Renal Diet/Heart healthy <Helen Vásquez - Last Filed: 12/29/17 13:10> Objective - Vital Signs/Intake and Output Vital Signs (last 24 hours): Temp Pulse Resp BP Pulse Ox 97.6 F 46 L 18 120/76 98 12/29/17 09:20 12/29/17 09:20 12/29/17 09:20 12/29/17 12:00 12/29/17 06:00 Intake and Output: 12/29/17 12/29/17 06:59 18:59 Intake Total 400 Output Total 5 Balance 395 - Medications Medications: Current Medications Aspirin (Aspirin Chewable) 81 mg PO DAILY [facility] Last Admin: 12/29/17 11:42 Dose: 81 mg Calcitriol (Rocaltrol) 0.25 mcg PO DAILY [facility] Last Admin: 12/29/17 11:43 Dose: 0.25 mcg Carvedilol (Coreg) 6.25 mg PO BID [facility] Cinacalcet (Sensipar) 30 mg PO DAILY [facility] Last Admin: 12/29/17 11:43 Dose: 30 mg Hydromorphone HCl (Dilaudid) 0.5 mg IVP Q6H PRN PRN Reason: Pain, severe (8-10) Last Admin: 12/29/17 08:22 Dose: 0.5 mg Pantoprazole Sodium (Protonix Ec Tab) 40 mg PO DAILY [facility] Last Admin: 12/29/17 11:42 Dose: 40 mg Rosuvastatin Calcium (Crestor) 10 mg PO HS [facility] Last Admin: 12/28/17 21:45 Dose: 10 mg Vitamin B Complex/Vit C/Folic Acid (Nephro-Ciara) 1 tab PO DAILY [facility] Last Admin: 12/29/17 11:43 Dose: 1 tab - Labs Labs: 12/29/17 06:14 12/29/17 06:14 Attending/Attestation - Attestation I have personally seen and examined this patient.: Yes I have fully participated in the care of the patient.: Yes I have reviewed all pertinent clinical information, including history, physical exam and plan: Yes Notes (Text): Seen and examined by me. patient was sitting on bed. complaining of chest tube site pain,no sob. asked for a Chest x ray .No changes ,Pneumothorax resolved It shows minimal subcutaneous emphysema. Has Hyperkalemia.Call made to Dr Sparrow and started on dialysis d/w the resident Veronica. We will follow electrolytes after dialysis 1.Right pneumothorax s/p chest tube 2.Hypotension-improved 3.Chronic systolic and diastolic heart failure -stable 3.Pulmonary HTN 6.ESRD on HD7.Hyperkalemia Assessment and the plan discussed with the resident in detail and I agree with the resident's documentation of the assessment and the plan.
--- NOTE | 2017-12-29 09:12 | RAD ---
HISTORY: chest tube COMPARISON: 12/28/2017 FINDINGS: LUNGS: No active pulmonary disease. PLEURA: Right apical chest tube. No pneumothorax appreciated. There is minimal subcutaneous emphysema over the right lateral chest wall. No pleural effusion. CARDIOVASCULAR: Normal. OSSEOUS STRUCTURES: No significant abnormalities. VISUALIZED UPPER ABDOMEN: Normal. OTHER FINDINGS: None IMPRESSION: Right chest tube. No pneumothorax identified.
[2017-12-29] MEDS: Pantoprazole 40 mg EC Tab PO SCH (11:42)
[2017-12-29] MEDS: Multivitamin Vitamin B Complex (Nephro-Vite) Tab PO SCH (11:43)
--- NOTE | 2017-12-29 12:28 | CP.PCM.CON ---
History of Present Illness - History of Present Illness History of Present Illness: Reason for consultation: right pneumothorax, spontaneoud. Requested by Dr. Cannon. Progress notes and imaging studies reviewed. I have discussed management plan with Dr. Ricki King. 32 yo male with pmh of hypertension, hypercholesterolemia, and ESRD on hemodialysis presented to ER with chest pain of 3 day duration. cxr and ct of chest in ER: 70% right pneumothrax with sob. A tube thoracostomy, right , performed by Dr. Ricki King in the ER, from which the right lung reexpaanded. No air leak. Serosanguinous drainage-50cc /24 hours. a/p: chest tube to suction. Incentive spirometer. daily cxr. daily cbc. Consider removing chest tube on Monday provided no unforeseen issues encountered. Past Patient History - Infectious Disease Hx of Infectious Diseases: None - Tetanus Immunizations Tetanus Immunization: Unknown - Past Medical History & Family History Past Medical History?: Yes - Past Social History Smoking Status: Never Smoked - CARDIAC Hx Hypercholesterolemia: Yes Hx Hypertension: Yes - PULMONARY Other/Comment: SOB A COUPLE DAYS AGO - NEUROLOGICAL Hx Neurological Disorder: No - HEENT Other/Comment: L EYE BLURRY - RENAL Hx Chronic Kidney Disease: No Date of Last Dialysis Treatment: 12/27/17 - ENDOCRINE/METABOLIC Hx Endocrine Disorders: No - HEMATOLOGICAL/ONCOLOGICAL Hx Blood Disorders: No - INTEGUMENTARY Hx Dermatological Problems: No - MUSCULOSKELETAL/RHEUMATOLOGICAL Hx Musculoskeletal Disorders: No Hx Falls: No - GASTROINTESTINAL Hx Gastrointestinal Disorders: No - GENITOURINARY/GYNECOLOGICAL Other/Comment: Dilaysis ; MWF - PSYCHIATRIC Hx Substance Use: No - SURGICAL HISTORY Hx Surgeries: No Other/Comment: Lt. arm AV shunt insertion - ANESTHESIA Hx Anesthesia: Yes Hx Anesthesia Reactions: No Hx Malignant Hyperthermia: No Has any member of the family had a problem w/ anesthesia?: No Meds Allergies/Adverse Reactions: Allergies Allergy/AdvReac Type Severity Reaction Status Date / Time No Known Allergies Allergy Verified 12/28/17 12:00 - Medications Medications: Current Medications Aspirin (Aspirin Chewable) 81 mg PO DAILY [facility] Last Admin: 12/29/17 11:42 Dose: 81 mg Calcitriol (Rocaltrol) 0.25 mcg PO DAILY [facility] Last Admin: 12/29/17 11:43 Dose: 0.25 mcg Carvedilol (Coreg) 6.25 mg PO BID [facility] Cinacalcet (Sensipar) 30 mg PO DAILY [facility] Last Admin: 12/29/17 11:43 Dose: 30 mg Hydromorphone HCl (Dilaudid) 0.5 mg IVP Q6H PRN PRN Reason: Pain, severe (8-10) Last Admin: 12/29/17 08:22 Dose: 0.5 mg Lisinopril (Zestril) 5 mg PO DAILY [facility] Pantoprazole Sodium (Protonix Ec Tab) 40 mg PO DAILY [facility] Last Admin: 12/29/17 11:42 Dose: 40 mg Rosuvastatin Calcium (Crestor) 10 mg PO HS [facility] Last Admin: 12/28/17 21:45 Dose: 10 mg Vitamin B Complex/Vit C/Folic Acid (Nephro-Emi) 1 tab PO DAILY [facility] Last Admin: 12/29/17 11:43 Dose: 1 tab Results - Vital Signs Recent Vital Signs: Last Vital Signs Temp 97.6 F 12/29/17 09:20 Pulse 46 L 12/29/17 09:20 Resp 18 12/29/17 09:20 BP 120/76 12/29/17 12:00 Pulse Ox 98 12/29/17 06:00 - Labs Result Diagrams: 01/02/18 06:14 01/02/18 06:15 Labs: Laboratory Results - last 24 hr 12/28/17 12/28/17 12/28/17 13:12 13:12 18:52 WBC 6.3 RBC 4.67 Hgb 14.8 D Hct 44.2 MCV 94.5 H D MCH 31.7 H MCHC 33.6 RDW 15.0 H Plt Count 185 MPV 9.2 Neut % (Auto) 63.2 Lymph % (Auto) 23.4 Jones % (Auto) 10.6 H Eos % (Auto) 2.1 Baso % (Auto) 0.7 Neut # (Auto) 4.0 Lymph # (Auto) 1.5 Jones # (Auto) 0.7 Eos # (Auto) 0.1 Baso # (Auto) 0.0 Sodium 145 Potassium 5.9 H Chloride 96 L Carbon Dioxide 28 Anion Gap 26 H BUN 43 H Creatinine 9.9 H* Est GFR ( Amer) 7 Est GFR (Non-Af Amer) 6 Random Glucose 84 Lactic Acid 1.0 Calcium 10.4 Total Bilirubin 0.8 AST 40 ALT 40 Alkaline Phosphatase 50 Total Creatine Kinase 67 Troponin I 0.0130 Total Protein 8.4 H Albumin 5.0 D Globulin 3.4 Albumin/Globulin Ratio 1.5 12/28/17 12/29/17 12/29/17 22:00 06:14 06:14 WBC 7.5 RBC 4.11 L Hgb 13.3 Hct 39.1 MCV 95.2 H MCH 32.3 H MCHC 33.9 RDW 15.0 H Plt Count 132 MPV 9.2 Neut % (Auto) 70.8 Lymph % (Auto) 16.7 L Jones % (Auto) 11.0 H Eos % (Auto) 1.1 Baso % (Auto) 0.4 Neut # (Auto) 5.3 Lymph # (Auto) 1.3 Jones # (Auto) 0.8 Eos # (Auto) 0.1 Baso # (Auto) 0.0 Sodium 141 141 Potassium 6.1 H 7.2 H* Chloride 99 100 Carbon Dioxide 27 25 Anion Gap 20 24 H BUN 50 H 55 H Creatinine 10.4 H* 11.6 H* Est GFR ( Amer) 7 6 Est GFR (Non-Af Amer) 6 5 Random Glucose 124 H 90 Lactic Acid Calcium 9.1 9.6 Total Bilirubin 0.6 AST 16 L D ALT 35 Alkaline Phosphatase 38 D Total Creatine Kinase Troponin I Total Protein 7.2 Albumin 4.2 Globulin 3.0 Albumin/Globulin Ratio 1.4
--- NOTE | 2017-12-29 12:33 | CP.PCM.CON ---
History of Present Illness - History of Present Illness History of Present Illness: This is a 32 yo male, originally from [place], with past medical hx of CHF systolic/diastolic dysfunction, cardiomyopathy, pulmonary hypertension, renal cysts, and ESRD on HD x many years, presenting today to [facility] ER with chief complaint of right-sided chest pain and shortness of breath. He stated he woke up 5 days ago with right-sided chest pain which he thought would go away on it' s own. However the pain worsened, he also had dyspnea which he stated prompted him to take deep breaths. He admitted to increased shortness of breath with ambulation. He denies trauma, palpitations, abdominal pain, urinary sx, diarrhea , constipation, fevers, cough. He states he's complaint with his medications and has not missed a HD session. PMD: Jorge/JOSE in [facility] clinic Specialists: Andrews- nephrology PMH: CHF, dilated cardiomyopathy, pulmonary hypertension, renal cysts, ESRD on dialysis MWF (regular dialysis schedule of MWF at [facility]); reported IgA nephropathy PSH: av fistula left upper ext, vein mapping FH: father- living- no medical problems; mother- living- HTN Social hx: Denies smoking. Denies second hand smoke. Denies drinking. Denies drug use. Born in [place]. Does not work. Fully mobile, able to do all ADLs. Allergies: NKDA Home meds: could not recall; sensipar, lisinopril?, cardizem?, per chart review nephro-ciara 1 tab qd, crestor 10mg po hs, lisinopril 5mg po qd, sensipar 30mg po qd, coreg 6.25mg po bid, calcitriol 0.25mcg po qd, asa 81mg po qd Review of Systems - Constitutional Constitutional: Fatigue, Lethargy - EENT Eyes: absent: As Per HPI, Blind Spots, Blurred Vision, Change in Vision, Decreased Night Vision, Diplopia, Discharge, Dry Eye, Exophthalmos, Floaters, Irritation, Itchy Eyes, Loss of Peripheral Vision, Pain, Photophobia, Requires Corrective Lenses, Sees Flashes, Spots in Vision, Tunnel Vision, Other Visual Disturbances, Loss of Vision, Other Ears: absent: As Per HPI, Decreased Hearing, Ear Discharge, Ear Pain, Tinnitus, Abnormal Hearing, Disequilibrium, Dizziness, Other Nose/Mouth/Throat: absent: As Per HPI, Epistaxis, Nasal Congestion, Nasal Discharge, Nasal Obstruction, Nasal Trauma, Nose Pain, Post Nasal Drip, Sinus Pain, Sinus Pressure, Bleeding Gums, Change in Voice, Dental Pain, Dry Mouth, Dysphagia, Halitosis, Hoarsness, Lip Swelling, Mouth Lesions, Mouth Pain, Odynophagia, Sore Throat, Throat Swelling, Tongue Swelling, Facial Pain, Neck Pain, Neck Mass, Other - Cardiovascular Cardiovascular: Chest Pain with Activity, Dyspnea - Respiratory Respiratory: Cough, Dyspnea on Exertion - Gastrointestinal Gastrointestinal: absent: As Per HPI, Abdominal Pain, Belching, Bloating, Change in Bowel Habits, Change in Stool Character, Coffee Ground Emesis, Constipation, Cramping, Diarrhea, Dyspepsia, Dysphagia, Early Satiety, Excessive Flatus, Fecal Incontinence, Heartburn, Hematemesis, Hematochezia, Loose Stools, Melena, Nausea, Odynophagia, Temesmus, Vomiting, Other - Genitourinary Genitourinary: As Per HPI - Musculoskeletal Musculoskeletal: Muscle Cramps, Muscle Weakness, Myalgias Past Patient History - Infectious Disease Hx of Infectious Diseases: None - Tetanus Immunizations Tetanus Immunization: Unknown - Past Medical History & Family History Past Medical History?: Yes Past Family History: Reviewed and not pertinent - Past Social History Smoking Status: Never Smoked Chewing Tobacco Use: No Cigar Use: No Alcohol: None Drugs: Denies Home Situation {Lives}: With Family - CARDIAC Hx Hypercholesterolemia: Yes Hx Hypertension: Yes - PULMONARY Other/Comment: SOB A COUPLE DAYS AGO - NEUROLOGICAL Hx Neurological Disorder: No - HEENT Other/Comment: L EYE BLURRY - RENAL Hx Chronic Kidney Disease: No Date of Last Dialysis Treatment: 12/27/17 - ENDOCRINE/METABOLIC Hx Endocrine Disorders: No - HEMATOLOGICAL/ONCOLOGICAL Hx Blood Disorders: No - INTEGUMENTARY Hx Dermatological Problems: No - MUSCULOSKELETAL/RHEUMATOLOGICAL Hx Musculoskeletal Disorders: No Hx Falls: No - GASTROINTESTINAL Hx Gastrointestinal Disorders: No - GENITOURINARY/GYNECOLOGICAL Other/Comment: Dilaysis ; MWF - PSYCHIATRIC Hx Substance Use: No - SURGICAL HISTORY Hx Surgeries: No Other/Comment: Lt. arm AV shunt insertion - ANESTHESIA Hx Anesthesia: Yes Hx Anesthesia Reactions: No Hx Malignant Hyperthermia: No Has any member of the family had a problem w/ anesthesia?: No Meds Allergies/Adverse Reactions: Allergies Allergy/AdvReac Type Severity Reaction Status Date / Time No Known Allergies Allergy Verified 12/28/17 12:00 - Medications Medications: Current Medications Aspirin (Aspirin Chewable) 81 mg PO DAILY [facility] Last Admin: 12/29/17 11:42 Dose: 81 mg Calcitriol (Rocaltrol) 0.25 mcg PO DAILY [facility] Last Admin: 12/29/17 11:43 Dose: 0.25 mcg Carvedilol (Coreg) 6.25 mg PO BID [facility] Cinacalcet (Sensipar) 30 mg PO DAILY [facility] Last Admin: 12/29/17 11:43 Dose: 30 mg Hydromorphone HCl (Dilaudid) 0.5 mg IVP Q6H PRN PRN Reason: Pain, severe (8-10) Last Admin: 12/29/17 08:22 Dose: 0.5 mg Lisinopril (Zestril) 5 mg PO DAILY [facility] Pantoprazole Sodium (Protonix Ec Tab) 40 mg PO DAILY [facility] Last Admin: 12/29/17 11:42 Dose: 40 mg Rosuvastatin Calcium (Crestor) 10 mg PO HS [facility] Last Admin: 12/28/17 21:45 Dose: 10 mg Vitamin B Complex/Vit C/Folic Acid (Nephro-Ciara) 1 tab PO DAILY [facility] Last Admin: 12/29/17 11:43 Dose: 1 tab Physical Exam - Constitutional Appears: In Acute Distress, Chronically Ill - Head Exam Head Exam: ATRAUMATIC, NORMAL INSPECTION - Eye Exam Eye Exam: EOMI, Normal appearance - Neck Exam Neck exam: Positive for: Normal Inspection. Negative for: Tenderness - Respiratory Exam Respiratory Exam: Decreased Breath Sounds, NORMAL BREATHING PATTERN - Cardiovascular Exam Cardiovascular Exam: REGULAR RHYTHM, +S1 - GI/Abdominal Exam GI & Abdominal Exam: Soft. absent: Tenderness - Extremities Exam Extremities exam: Positive for: normal inspection. Negative for: tenderness - Neurological Exam Neurological exam: Alert, Oriented x3 - Skin Skin Exam: Dry, Warm Results - Vital Signs Recent Vital Signs: Last Vital Signs Temp 97.6 F 12/29/17 09:20 Pulse 46 L 12/29/17 09:20 Resp 18 12/29/17 09:20 BP 120/76 12/29/17 12:00 Pulse Ox 98 12/29/17 06:00 - Labs Result Diagrams: 12/29/17 06:14 12/29/17 06:14 Labs: Laboratory Results - last 24 hr 12/28/17 12/28/17 12/28/17 13:12 13:12 18:52 WBC 6.3 RBC 4.67 Hgb 14.8 D Hct 44.2 MCV 94.5 H D MCH 31.7 H MCHC 33.6 RDW 15.0 H Plt Count 185 MPV 9.2 Neut % (Auto) 63.2 Lymph % (Auto) 23.4 [place] % (Auto) 10.6 H Eos % (Auto) 2.1 Baso % (Auto) 0.7 Neut # (Auto) 4.0 Lymph # (Auto) 1.5 [place] # (Auto) 0.7 Eos # (Auto) 0.1 Baso # (Auto) 0.0 Sodium 145 Potassium 5.9 H Chloride 96 L Carbon Dioxide 28 Anion Gap 26 H BUN 43 H Creatinine 9.9 H* Est GFR ( Amer) 7 Est GFR (Non-Af Amer) 6 Random Glucose 84 Lactic Acid 1.0 Calcium 10.4 Total Bilirubin 0.8 AST 40 ALT 40 Alkaline Phosphatase 50 Total Creatine Kinase 67 Troponin I 0.0130 Total Protein 8.4 H Albumin 5.0 D Globulin 3.4 Albumin/Globulin Ratio 1.5 12/28/17 12/29/17 12/29/17 22:00 06:14 06:14 WBC 7.5 RBC 4.11 L Hgb 13.3 Hct 39.1 MCV 95.2 H MCH 32.3 H MCHC 33.9 RDW 15.0 H Plt Count 132 MPV 9.2 Neut % (Auto) 70.8 Lymph % (Auto) 16.7 L [place] % (Auto) 11.0 H Eos % (Auto) 1.1 Baso % (Auto) 0.4 Neut # (Auto) 5.3 Lymph # (Auto) 1.3 [place] # (Auto) 0.8 Eos # (Auto) 0.1 Baso # (Auto) 0.0 Sodium 141 141 Potassium 6.1 H 7.2 H* Chloride 99 100 Carbon Dioxide 27 25 Anion Gap 20 24 H BUN 50 H 55 H Creatinine 10.4 H* 11.6 H* Est GFR ( Amer) 7 6 Est GFR (Non-Af Amer) 6 5 Random Glucose 124 H 90 Lactic Acid Calcium 9.1 9.6 Total Bilirubin 0.6 AST 16 L D ALT 35 Alkaline Phosphatase 38 D Total Creatine Kinase Troponin I Total Protein 7.2 Albumin 4.2 Globulin 3.0 Albumin/Globulin Ratio 1.4 Assessment & Plan (1) Cardiomyopathy Status: Acute (2) Hypertensive chronic kidney disease with stage 5 chronic kidney disease or end stage renal disease Status: Acute (3) IgA nephropathy Status: Acute - Assessment and Plan (Free Text) Plan: chest tube placed- to be followed by CT surgery on dialysis immediatrely for severe hyperkalemia moderate UF with HD HTN control follow up chemistries stop lisinopril
--- NOTE | 2017-12-29 17:14 | CARD ---
APPROVED REPORT EKG Measurement Heart [id number] <Conclusion> Sinus bradycardia ST & T wave abnormality, consider anterior ischemia Abnormal ECG
--- NOTE | 2017-12-29 17:17 | CARD ---
APPROVED REPORT EKG Measurement Heart [id number] <Conclusion> Normal sinus rhythm Rightward axis Borderline ECG
[2017-12-30] MEDS: HYDROmorphone 0.5 mg/0.5 ml ISec IVP PRN ×3 (00:52→18:11)
[2017-12-30 06:39] LABS: BASO % 0.6 % (0.0-2.0); EOS # 0.1 K/uL (0.0-0.7); EOS % 1.3 % (0.0-4.0); HEMOGLOBIN 13.3 g/dL (12.0-18.0); LYMPH # 1.5 K/uL (1.0-4.3); LYMPH % 21.6 % (20.0-40.0); MEAN CELL VOLUME 95.2 fL (80.0-94.0); MEAN CORPUSCULAR HEMOGLOBIN 31.8 pg (27.0-31.0); MEAN CORPUSCULAR HGB CONC 33.4 g/dL (33.0-37.0); MEAN PLATELET VOLUME 9.7 fL (7.2-11.7); MONO # 0.7 K/uL (0.0-0.8); MONO % 10.5 % (0.0-10.0); NEUT # 4.5 K/uL (1.8-7.0); RBC 4.19 Mil/uL (4.40-5.90); RED CELL DISTRIBUTION WIDTH 14.9 % (11.5-14.5); WHITE BLOOD COUNT 6.8 K/uL (4.8-10.8)
[2017-12-30 07:11] LABS: ALB/GLOB RATIO 1.4 (1.0-2.1); ALBUMIN 4.2 g/dL (3.5-5.0); CALCIUM 9.1 mg/dl (8.6-10.4)
--- NOTE | 2017-12-30 08:44 | CP.PCM.PN ---
Subjective - Date & Time of Evaluation Date of Evaluation: 12/30/17 Time of Evaluation: 08:38 - Subjective Subjective: Cardiothoracic Surgery Progress Note For Dr. Monaco This 32M was seen and evaluated this AM at bedside. No acute events overnight. He complains of chest pain on deep inspiration. He has not been ambulating due to the chest tube. I explained we can put the chest tube to gravity so that he can ambulate. I explained we will likely keep the chest tube in until monday. Objective - Vital Signs/Intake and Output Vital Signs (last 24 hours): Temp Pulse Resp BP Pulse Ox 98.6 F 55 L 24 120/74 98 12/30/17 08:00 12/30/17 08:00 12/30/17 08:00 12/30/17 08:00 12/30/17 08:00 Intake and Output: 12/30/17 12/30/17 06:59 18:59 Intake Total 360 340 Output Total 5 0 Balance 355 340 - Medications Medications: Current Medications Aspirin (Aspirin Chewable) 81 mg PO DAILY [facility] Last Admin: 12/29/17 11:42 Dose: 81 mg Calcitriol (Rocaltrol) 0.25 mcg PO DAILY [facility] Last Admin: 12/29/17 11:43 Dose: 0.25 mcg Carvedilol (Coreg) 6.25 mg PO BID [facility] Cinacalcet (Sensipar) 30 mg PO DAILY [facility] Last Admin: 12/29/17 11:43 Dose: 30 mg Hydromorphone HCl (Dilaudid) 0.5 mg IVP Q6H PRN PRN Reason: Pain, severe (8-10) Last Admin: 12/30/17 00:52 Dose: 0.5 mg Pantoprazole Sodium (Protonix Ec Tab) 40 mg PO DAILY [facility] Last Admin: 12/29/17 11:42 Dose: 40 mg Rosuvastatin Calcium (Crestor) 10 mg PO HS [facility] Last Admin: 12/29/17 23:00 Dose: 10 mg Vitamin B Complex/Vit C/Folic Acid (Nephro-Emi) 1 tab PO DAILY [facility] Last Admin: 12/29/17 11:43 Dose: 1 tab - Labs Labs: 12/30/17 06:32 12/30/17 06:33 - Constitutional Appears: Non-toxic, No Acute Distress - Head Exam Head Exam: ATRAUMATIC, NORMOCEPHALIC - Eye Exam Eye Exam: EOMI, Normal appearance - ENT Exam ENT Exam: Mucous Membranes Moist - Respiratory Exam Respiratory Exam: NORMAL BREATHING PATTERN - Cardiovascular Exam Cardiovascular Exam: +S1, +S2 - GI/Abdominal Exam GI & Abdominal Exam: Soft. absent: Firm, Guarding, Rigid, Tenderness - Neurological Exam Neurological Exam: Alert, Awake - Psychiatric Exam Psychiatric exam: Normal Affect, Normal Mood - Skin Skin Exam: Dry, Intact - Additional Findings Additional findings: Chest tube without air leak. Dressings clean dry and intact Assessment and Plan - Assessment and Plan (Free Text) Assessment: 32M with multiple comorbidities with spontaneous pneumothorax Plan: Daily cxr Daily cbc CT to suction waterseal tomorrow possible d/c chest tune monday D/w Dr. Jair Kign PGY2
--- NOTE | 2017-12-30 09:19 | CP.PCM.PN ---
Subjective - Date & Time of Evaluation Date of Evaluation: 12/30/17 Time of Evaluation: 09:18 - Subjective Subjective: seen and examined this morning Patient has mild pain at chest tube site no sob Objective - Vital Signs/Intake and Output Vital Signs (last 24 hours): Temp Pulse Resp BP Pulse Ox 98.6 F 55 L 24 120/74 98 12/30/17 08:00 12/30/17 08:00 12/30/17 08:00 12/30/17 08:00 12/30/17 08:00 Intake and Output: 12/30/17 12/30/17 06:59 18:59 Intake Total 360 340 Output Total 5 0 Balance 355 340 - Medications Medications: Current Medications Aspirin (Aspirin Chewable) 81 mg PO DAILY [facility] Last Admin: 12/29/17 11:42 Dose: 81 mg Calcitriol (Rocaltrol) 0.25 mcg PO DAILY [facility] Last Admin: 12/29/17 11:43 Dose: 0.25 mcg Calcium Chloride (Calcium Chloride) 1,000 mg IV ONCE ONE Stop: 12/30/17 09:46 Carvedilol (Coreg) 6.25 mg PO BID [facility] Cinacalcet (Sensipar) 30 mg PO DAILY [facility] Last Admin: 12/29/17 11:43 Dose: 30 mg Dextrose (Dextrose 50% Inj) 25 ml IV STAT STA Stop: 12/30/17 08:51 Hydromorphone HCl (Dilaudid) 0.5 mg IVP Q6H PRN PRN Reason: Pain, severe (8-10) Last Admin: 12/30/17 00:52 Dose: 0.5 mg Insulin Human Regular (Novolin R) 10 unit IV ONCE ONE Stop: 12/30/17 08:51 Pantoprazole Sodium (Protonix Ec Tab) 40 mg PO DAILY [facility] Last Admin: 12/29/17 11:42 Dose: 40 mg Rosuvastatin Calcium (Crestor) 10 mg PO HS [facility] Last Admin: 12/29/17 23:00 Dose: 10 mg Sodium Polystyrene Sulfonate (Kayexalate Susp) 30 gm PO ONCE ONE Stop: 12/30/17 09:31 Vitamin B Complex/Vit C/Folic Acid (Nephro-Emi) 1 tab PO DAILY [facility] Last Admin: 12/29/17 11:43 Dose: 1 tab - Labs Labs: 12/30/17 06:32 12/30/17 06:33 - Constitutional Appears: Non-toxic, In Acute Distress - Head Exam Head Exam: NORMAL INSPECTION - Eye Exam Eye Exam: Normal appearance Pupil Exam: NORMAL ACCOMODATION - ENT Exam ENT Exam: Mucous Membranes Moist - Neck Exam Neck Exam: Full ROM - Respiratory Exam Respiratory Exam: Chest Wall Tenderness (mild at chest tube site,no new swelling ), Clear to Ausculation Bilateral, NORMAL BREATHING PATTERN - Cardiovascular Exam Cardiovascular Exam: REGULAR RHYTHM - GI/Abdominal Exam GI & Abdominal Exam: Soft, Normal Bowel Sounds - Extremities Exam Extremities Exam: Full ROM, Normal Capillary Refill, Normal Inspection - Back Exam Back Exam: Full ROM - Neurological Exam Neurological Exam: Alert, Oriented x3 - Psychiatric Exam Psychiatric exam: Normal Affect - Skin Skin Exam: Dry, Intact Assessment and Plan - Assessment and Plan (Free Text) Assessment: This is a 32 yo male, originally from [place], with past medical hx of CHF with reduced ejection fraction, cardiomyopathy, pulmonary hypertension, renal cysts, and ESRD on HD,came to [facility] ER with chief complaint of right-sided chest pain and shortness of breath .Admitted for pneumothorax Plan: 1. Right pneumothorax Consult thoracic surgeon, Dr Monaco s/p chest tube placed in ED. Repeat CXR shows re-expansion of right lung. chest CT -> trace right pneumothorax, with minimal subcutaneous emphysema follow surgery 2.ESRD on HD Hyperkalemia not improved after dialysis D/W Dr Salmeron suspect recirculation in AVF HD today after temporary shiley placement .Discussed with Dr Medrano. As per her fistulogram next week See[employer], Dr Sparrow outpatient Regular dialysis schedule of MWF at [facility] [place] [facility] 3.CHF - Systolic and Diastolic -Cardiac cath done in 08/2015 showed severe dilated cardiomyopathy and severe left ventricular systolic dysfunction, diastolic dysfunction and moderate pulmonary hypertension. Patient was placed on lifevest. -Echo from 01/2016 showed normal EF - at that time lifevest was discontinued -Echo 10/2017 showed left ventricle is moderately dilated, moderate concentric left ventricle hypertrophy, systolic function is mildly impaired, EF 45%, grade II-pseudonormal filling, elevated left atrial pressure, right ventricle systolic function normal, left atrium moderately dilated, mild aortic regurgitation, mitral regurgitation mild, moderate tricuspid regurgitation, moderate pulmonary hypertension Carvedilol 6.25mg PO BID (hold for systolic < 100 and/or HR < 60) - on hold due to bradycardia and hypotension we will resume once electrolytes improved and HR>60 ASA 81mg PO Lisinopril 5mg PO QD - on hold due to hyperkalemia Crestor 10mg PO HS 4.Pulmonary hypertension-out patient follow up 5.Prolonged QTC Avoid meds prolong QTC 6.Thyroid Nodule Found on chest CT Will need US outpatient PROPHYLAXIS Protonix 40mg PO QD SCDs - DVT risk score of 1 Renal Diet/Heart healthy
[2017-12-30] MEDS ORDERED: Sod Polystyrene Sulf 15 gm/60 ml Susp PO ONE (09:30)
[2017-12-30] MEDS ORDERED: Dextrose 50% SYRINGE Inj (50 ml) IV ONE (09:30)
[2017-12-30] MEDS ORDERED: (Novolin R) Insulin Human Regular 100 units/ml vial IV ONE ×2 (09:30→10:50)
[2017-12-30] MEDS ORDERED: Calcium Chloride 1000 mg/10 ml Syringe IV ONE ×2 (09:45)
[2017-12-30] MEDS ORDERED: HYDROmorphone 0.5 mg/0.5 ml ISec IVP STA (09:50)
[2017-12-30] MEDS ORDERED: Calcium Gluconate 4.65 mEq/10 ml Inj IVP ONE (09:50)
--- NOTE | 2017-12-30 10:23 | CP.PCM.PN ---
Subjective - Date & Time of Evaluation Date of Evaluation: 12/30/17 Time of Evaluation: 10:22 - Subjective Subjective: chest tube in labs noted, little clearance, despite HD yesterday Objective - Vital Signs/Intake and Output Vital Signs (last 24 hours): Temp Pulse Resp BP Pulse Ox 98.6 F 55 L 24 120/74 98 12/30/17 08:00 12/30/17 08:00 12/30/17 08:00 12/30/17 08:00 12/30/17 08:00 Intake and Output: 12/30/17 12/30/17 06:59 18:59 Intake Total 360 340 Output Total 5 0 Balance 355 340 - Medications Medications: Current Medications Aspirin (Aspirin Chewable) 81 mg PO DAILY [facility] Last Admin: 12/29/17 11:42 Dose: 81 mg Calcitriol (Rocaltrol) 0.25 mcg PO DAILY [facility] Last Admin: 12/29/17 11:43 Dose: 0.25 mcg Carvedilol (Coreg) 6.25 mg PO BID [facility] Cinacalcet (Sensipar) 30 mg PO DAILY [facility] Last Admin: 12/29/17 11:43 Dose: 30 mg Hydromorphone HCl (Dilaudid) 0.5 mg IVP Q6H PRN PRN Reason: Pain, severe (8-10) Last Admin: 12/30/17 00:52 Dose: 0.5 mg Pantoprazole Sodium (Protonix Ec Tab) 40 mg PO DAILY [facility] Last Admin: 12/29/17 11:42 Dose: 40 mg Rosuvastatin Calcium (Crestor) 10 mg PO HS [facility] Last Admin: 12/29/17 23:00 Dose: 10 mg Vitamin B Complex/Vit C/Folic Acid (Nephro-Emi) 1 tab PO DAILY [facility] Last Admin: 12/29/17 11:43 Dose: 1 tab - Labs Labs: 12/30/17 06:32 12/30/17 06:33 - Constitutional Appears: Non-toxic, In Acute Distress - Head Exam Head Exam: ATRAUMATIC, NORMAL INSPECTION - Eye Exam Eye Exam: EOMI, Normal appearance - ENT Exam ENT Exam: Mucous Membranes Moist - Neck Exam Neck Exam: Full ROM. absent: Lymphadenopathy - Respiratory Exam Respiratory Exam: Decreased Breath Sounds. absent: Accessory Muscle Use Additional comments: right chest tube in - Cardiovascular Exam Cardiovascular Exam: REGULAR RHYTHM. absent: Rubs - GI/Abdominal Exam GI & Abdominal Exam: Soft. absent: Tenderness - Extremities Exam Extremities Exam: Full ROM. absent: Pedal Edema - Neurological Exam Neurological Exam: Alert, Oriented x3 Assessment and Plan - Assessment and Plan (Free Text) Assessment: suspect recirculation in AVF HD today with shiley fistulogram next week pulmonary mangement of chest tube
[2017-12-30] MEDS: Multivitamin Vitamin B Complex (Nephro-Vite) Tab PO SCH (10:32)
[2017-12-30] MEDS: Pantoprazole 40 mg EC Tab PO SCH (10:32)
--- NOTE | 2017-12-30 11:49 | RAD ---
HISTORY: chest tube COMPARISON: 12/29/2017 FINDINGS: In situ right-sided chest tube. LUNGS: No active pulmonary disease. PLEURA: No significant pleural effusion identified. No definitive evidence of pneumothorax apparent. CARDIOVASCULAR: Heart appears mildly enlarged. The the OSSEOUS STRUCTURES: No significant abnormalities. VISUALIZED UPPER ABDOMEN: Normal. OTHER FINDINGS: None. IMPRESSION: In situ right-sided chest tube. No definitive evidence of residual pneumothorax
--- NOTE | 2017-12-30 21:51 | CP.PCM.PN ---
Subjective - Date & Time of Evaluation Date of Evaluation: 12/30/17 Time of Evaluation: 21:47 - Subjective Subjective: Surgery PT seen and examined. No acute events. CT in place. No leak. Chest tube placed off suction . Pt gets HD via L AVF. C/O pain. Objective - Vital Signs/Intake and Output Vital Signs (last 24 hours): Temp Pulse Resp BP Pulse Ox 98.4 F 57 L 20 98/60 L 97 12/30/17 20:00 12/30/17 20:00 12/30/17 20:00 12/30/17 20:00 12/30/17 20:00 Intake and Output: 12/30/17 07 18:59 06:59 Intake Total 1180 Output Total 1013 Balance 167 - Medications Medications: Current Medications Aspirin (Aspirin Chewable) 81 mg PO DAILY [facility] Last Admin: 12/30/17 10:30 Dose: 81 mg Calcitriol (Rocaltrol) 0.25 mcg PO DAILY [facility] Last Admin: 12/30/17 10:32 Dose: 0.25 mcg Carvedilol (Coreg) 6.25 mg PO BID [facility] Cinacalcet (Sensipar) 30 mg PO DAILY [facility] Last Admin: 12/30/17 10:32 Dose: 30 mg Hydromorphone HCl (Dilaudid) 0.5 mg IVP Q6H PRN PRN Reason: Pain, severe (8-10) Last Admin: 12/30/17 18:11 Dose: 0.5 mg Pantoprazole Sodium (Protonix Ec Tab) 40 mg PO DAILY [facility] Last Admin: 12/30/17 10:32 Dose: 40 mg Rosuvastatin Calcium (Crestor) 10 mg PO HS [facility] Last Admin: 12/29/17 23:00 Dose: 10 mg Vitamin B Complex/Vit C/Folic Acid (Nephro-Emi) 1 tab PO DAILY [facility] Last Admin: 12/30/17 10:32 Dose: 1 tab - Labs Labs: 12/30/17 06:32 12/30/17 06:33 - Constitutional Appears: No Acute Distress - Head Exam Head Exam: ATRAUMATIC, NORMAL INSPECTION, NORMOCEPHALIC - Eye Exam Eye Exam: EOMI, Normal appearance, PERRL Pupil Exam: NORMAL ACCOMODATION, PERRL - ENT Exam ENT Exam: Mucous Membranes Moist, Normal Exam - Neck Exam Neck Exam: Full ROM, Normal Inspection. absent: Lymphadenopathy - Respiratory Exam Respiratory Exam: NORMAL BREATHING PATTERN - Cardiovascular Exam Cardiovascular Exam: REGULAR RHYTHM, +S1, +S2 - GI/Abdominal Exam GI & Abdominal Exam: Soft, Normal Bowel Sounds. absent: Distended, Firm, Guarding, Rigid, Tenderness Additional comments: R CT in place. No leak. No output. - Extremities Exam Extremities Exam: Full ROM Additional comments: L arm AVF good thrills. - Back Exam Back Exam: NORMAL INSPECTION - Neurological Exam Neurological Exam: Alert, Awake, CN II-XII Intact, Normal Gait, Oriented x3 - Psychiatric Exam Psychiatric exam: Normal Affect, Normal Mood - Skin Skin Exam: Dry, Intact, Normal Color, Warm Assessment and Plan - Assessment and Plan (Free Text) Assessment: 32M with multiple comorbidities with spontaneous pneumothorax s/p R CT placement CXR pneutothorax resolved. Off suction now. On waterseal. Plan: Daily cxr Daily cbc CT to waterseal Will clamp CT tomorrow if CXR normal after waterseal. possible d/c chest tube monday Vascular planned for fistulogram. HD MWF. D/w Dr. Adam
[2017-12-31 07:01] LABS: BASO % 0.4 % (0.0-2.0); EOS # 0.1 K/uL (0.0-0.7); EOS % 1.8 % (0.0-4.0); HEMOGLOBIN 12.1 g/dL (12.0-18.0); LYMPH # 1.4 K/uL (1.0-4.3); LYMPH % 22.1 % (20.0-40.0); MEAN CELL VOLUME 94.1 fL (80.0-94.0); MEAN CORPUSCULAR HEMOGLOBIN 32.2 pg (27.0-31.0); MEAN CORPUSCULAR HGB CONC 34.2 g/dL (33.0-37.0); MEAN PLATELET VOLUME 9.2 fL (7.2-11.7); MONO # 0.6 K/uL (0.0-0.8); MONO % 8.7 % (0.0-10.0); NEUT # 4.3 K/uL (1.8-7.0); NRBC % 0.2 % (0.0-2.0); RBC 3.75 Mil/uL (4.40-5.90); RED CELL DISTRIBUTION WIDTH 14.6 % (11.5-14.5); WHITE BLOOD COUNT 6.4 K/uL (4.8-10.8)
[2017-12-31 07:10] LABS: ALB/GLOB RATIO 1.4 (1.0-2.1); ALBUMIN 3.9 g/dL (3.5-5.0); CALCIUM 9.3 mg/dl (8.6-10.4)
--- NOTE | 2017-12-31 08:34 | CP.PCM.PN ---
Subjective - Date & Time of Evaluation Date of Evaluation: 12/31/17 Time of Evaluation: 08:31 - Subjective Subjective: Cardiothoracic Progress Note for Dr. Monaco This 32M was seen and examined this AM at bedside. No acute events overnight. He reports minimal pain from the chest tube. AM CXR shows resolved pnumothorax, there is no air leak. He denies chest pain or SOB. No new complaints at this time. Objective - Vital Signs/Intake and Output Vital Signs (last 24 hours): Temp Pulse Resp BP Pulse Ox 98.6 F 56 L 16 122/72 98 12/31/17 04:00 12/31/17 04:00 12/31/17 04:00 12/31/17 04:00 12/31/17 04:00 Intake and Output: 12/31/17 12/31/17 06:59 18:59 Intake Total 200 Output Total 10 Balance 190 - Medications Medications: Current Medications Aspirin (Aspirin Chewable) 81 mg PO DAILY [facility] Last Admin: 12/30/17 10:30 Dose: 81 mg Calcitriol (Rocaltrol) 0.25 mcg PO DAILY [facility] Last Admin: 12/30/17 10:32 Dose: 0.25 mcg Carvedilol (Coreg) 6.25 mg PO BID [facility] Cinacalcet (Sensipar) 30 mg PO DAILY [facility] Last Admin: 12/30/17 10:32 Dose: 30 mg Hydromorphone HCl (Dilaudid) 0.5 mg IVP Q6H PRN PRN Reason: Pain, severe (8-10) Last Admin: 12/30/17 18:11 Dose: 0.5 mg Pantoprazole Sodium (Protonix Ec Tab) 40 mg PO DAILY [facility] Last Admin: 12/30/17 10:32 Dose: 40 mg Rosuvastatin Calcium (Crestor) 10 mg PO HS [facility] Last Admin: 12/30/17 22:18 Dose: 10 mg Tramadol HCl (Ultram) 50 mg PO TID PRN PRN Reason: Pain, moderate (4-7) Last Admin: 12/30/17 22:18 Dose: 50 mg Vitamin B Complex/Vit C/Folic Acid (Nephro-Emi) 1 tab PO DAILY [facility] Last Admin: 12/30/17 10:32 Dose: 1 tab - Labs Labs: 12/31/17 06:51 12/31/17 06:51 - Constitutional Appears: Non-toxic, No Acute Distress - Head Exam Head Exam: ATRAUMATIC, NORMOCEPHALIC - Eye Exam Eye Exam: EOMI - ENT Exam ENT Exam: Mucous Membranes Moist - Respiratory Exam Respiratory Exam: NORMAL BREATHING PATTERN Additional comments: Left sided chest tube - Cardiovascular Exam Cardiovascular Exam: +S1, +S2 - GI/Abdominal Exam GI & Abdominal Exam: Soft. absent: Firm, Guarding, Rigid, Tenderness - Neurological Exam Neurological Exam: Alert, Awake - Psychiatric Exam Psychiatric exam: Normal Affect, Normal Mood - Skin Skin Exam: Dry, Intact Assessment and Plan - Assessment and Plan (Free Text) Assessment: 32M with spontaneous pmneumothorax Will clamp chest tube cxr in AM Likely remove chest tube tomorrow further recs per Dr. Carlos Enrique King PGY2
--- NOTE | 2017-12-31 09:21 | RAD ---
HISTORY: pneumothorax COMPARISON: Comparison made with chest radiograph 12/30/2017. FINDINGS: In situ right-sided chest tube unchanged in position. LUNGS: Appears to be some minor bibasilar atelectasis. PLEURA: No significant pleural effusion identified, no pneumothorax apparent. CARDIOVASCULAR: Normal. OSSEOUS STRUCTURES: No significant abnormalities. VISUALIZED UPPER ABDOMEN: Normal. OTHER FINDINGS: None. IMPRESSION: No in situ right-sided chest tube. No pneumothorax identified on this exam
[2017-12-31] MEDS: Multivitamin Vitamin B Complex (Nephro-Vite) Tab PO SCH (09:40)
[2017-12-31] MEDS: Pantoprazole 40 mg EC Tab PO SCH (09:42)
--- NOTE | 2017-12-31 12:13 | CP.PCM.PN ---
<Milagros Lawson - Last Filed: 12/31/17 12:24> Subjective - Date & Time of Evaluation Date of Evaluation: 12/31/17 Time of Evaluation: 07:00 - Subjective Subjective: PGY2- Progress note for Dr. Cuellar Patient seen and examined at bedside and in no acute distress. Patient has some right sided pain at site of chest tube. Patient has no pain at the site of femoral shiley. Patient denies any shortness of breath, abdominal pain, nausea, vomiting, constipation, or diarrhea. Objective - Vital Signs/Intake and Output Vital Signs (last 24 hours): Temp Pulse Resp BP Pulse Ox 98 F 57 L 14 113/64 97 12/31/17 08:00 12/31/17 10:00 12/31/17 08:00 12/31/17 08:00 12/31/17 08:00 Intake and Output: 12/31/17 12/31/17 06:59 18:59 Intake Total 200 Output Total 10 Balance 190 - Medications Medications: Current Medications Aspirin (Aspirin Chewable) 81 mg PO DAILY [facility] Last Admin: 12/31/17 09:40 Dose: 81 mg Calcitriol (Rocaltrol) 0.25 mcg PO DAILY [facility] Last Admin: 12/31/17 09:40 Dose: 0.25 mcg Carvedilol (Coreg) 6.25 mg PO BID [facility] Cinacalcet (Sensipar) 30 mg PO DAILY [facility] Last Admin: 12/31/17 09:40 Dose: 30 mg Hydromorphone HCl (Dilaudid) 0.5 mg IVP Q6H PRN PRN Reason: Pain, severe (8-10) Last Admin: 12/30/17 18:11 Dose: 0.5 mg Pantoprazole Sodium (Protonix Ec Tab) 40 mg PO DAILY [facility] Last Admin: 12/31/17 09:42 Dose: 40 mg Rosuvastatin Calcium (Crestor) 10 mg PO HS [facility] Last Admin: 12/30/17 22:18 Dose: 10 mg Tramadol HCl (Ultram) 50 mg PO TID PRN PRN Reason: Pain, moderate (4-7) Last Admin: 12/30/17 22:18 Dose: 50 mg Vitamin B Complex/Vit C/Folic Acid (Nephro-Ciara) 1 tab PO DAILY [facility] Last Admin: 12/31/17 09:40 Dose: 1 tab - Labs Labs: 12/31/17 06:51 12/31/17 06:51 - Additional Findings Additional findings: - Constitutional Appears: Non-toxic, In Acute Distress - Head Exam Head Exam: NORMAL INSPECTION - Eye Exam Eye Exam: Normal appearance Pupil Exam: NORMAL ACCOMODATION - ENT Exam ENT Exam: Mucous Membranes Moist - Neck Exam Neck Exam: Full ROM - Respiratory Exam Respiratory Exam: Chest Wall Tenderness (mild at chest tube site,no new swelling ), Clear to Ausculation Bilateral, NORMAL BREATHING PATTERN - Cardiovascular Exam Cardiovascular Exam: REGULAR RHYTHM - GI/Abdominal Exam GI & Abdominal Exam: Soft, Normal Bowel Sounds R femoral shiley in place with no tenderness - Extremities Exam Extremities Exam: Full ROM, Normal Capillary Refill, Normal Inspection - Back Exam Back Exam: Full ROM - Neurological Exam Neurological Exam: Alert, Oriented x3 - Psychiatric Exam Psychiatric exam: Normal Affect - Skin Skin Exam: Dry, Intact Assessment and Plan - Assessment and Plan (Free Text) Assessment: Right pneumothorax Consult thoracic surgeon, Dr Monaco cxray 12/31: no pneumothorax chest tube clamped on 12/31 surgery plans to remove CT on 01/01 Tramadol 50mg po TID prn Dilaudid .5mg IVP q6h prn ESRD on HD hyperkalemia did not resolve with dialysis on 12/29, suspect recirculation in AVF temporary femoral shiley placed on 12/30 and repeat dialysis- Dr. Michael consulted hyperkalemia resolved on 12/31, BUN/Cr minimally improved patient will need fistulogram this week Regular dialysis schedule of MWF at [facility] on [address] Meds: Cont home med calcitriol 0.25mcg po qd Cont home med sensipar 30mg po qd Cont home med Nephro-ciara 1 tab po qd CHF - Systolic and Diastolic -Cardiac cath done in 08/2015 showed severe dilated cardiomyopathy and severe left ventricular systolic dysfunction, diastolic dysfunction and moderate pulmonary hypertension. Patient was placed on lifevest. -Echo from 01/2016 showed normal EF - at that time lifevest was discontinued -Echo 10/2017 showed left ventricle is moderately dilated, moderate concentric left ventricle hypertrophy, systolic function is mildly impaired, EF 45%, grade II-pseudonormal filling, elevated left atrial pressure, right ventricle systolic function normal, left atrium moderately dilated, mild aortic regurgitation, mitral regurgitation mild, moderate tricuspid regurgitation, moderate pulmonary hypertension Carvedilol 6.25mg PO BID (hold for systolic < 100 and/or HR < 60) - on hold due to bradycardia and hypotension we will resume once electrolytes improved and HR>60 ASA 81mg PO Crestor 10mg PO HS Pulmonary hypertension out patient follow up Prolonged QTC Avoid meds prolong QTC Thyroid Nodule Found on chest CT Will need US outpatient Prophylaxis Protonix 40mg PO QD SCDs - DVT risk score of 1 Renal Diet/Heart healthy <Lena Cuellar V - Last Filed: 12/31/17 16:19> Objective - Vital Signs/Intake and Output Vital Signs (last 24 hours): Temp Pulse Resp BP Pulse Ox 98.1 F 73 20 113/77 98 12/31/17 13:00 12/31/17 13:00 12/31/17 13:00 12/31/17 13:00 12/31/17 13:00 Intake and Output: 12/31/17 12/31/17 06:59 18:59 Intake Total 200 Output Total 10 Balance 190 - Medications Medications: Current Medications Aspirin (Aspirin Chewable) 81 mg PO DAILY [facility] Last Admin: 12/31/17 09:40 Dose: 81 mg Calcitriol (Rocaltrol) 0.25 mcg PO DAILY [facility] Last Admin: 12/31/17 09:40 Dose: 0.25 mcg Carvedilol (Coreg) 6.25 mg PO BID [facility] Cinacalcet (Sensipar) 30 mg PO DAILY [facility] Last Admin: 12/31/17 09:40 Dose: 30 mg Hydromorphone HCl (Dilaudid) 0.5 mg IVP Q6H PRN PRN Reason: Pain, severe (8-10) Last Admin: 12/30/17 18:11 Dose: 0.5 mg Pantoprazole Sodium (Protonix Ec Tab) 40 mg PO DAILY [facility] Last Admin: 12/31/17 09:42 Dose: 40 mg Rosuvastatin Calcium (Crestor) 10 mg PO HS [facility] Last Admin: 12/30/17 22:18 Dose: 10 mg Tramadol HCl (Ultram) 50 mg PO TID PRN PRN Reason: Pain, moderate (4-7) Last Admin: 12/30/17 22:18 Dose: 50 mg Vitamin B Complex/Vit C/Folic Acid (Nephro-Ciara) 1 tab PO DAILY [facility] Last Admin: 12/31/17 09:40 Dose: 1 tab - Labs Labs: 12/31/17 06:51 12/31/17 06:51 Attending/Attestation - Attestation I have personally seen and examined this patient.: Yes I have fully participated in the care of the patient.: Yes I have reviewed all pertinent clinical information, including history, physical exam and plan: Yes Notes (Text): Assessment/Plan 1.Spontaneous Right pneumothorax Assessment/Plan * Consult thoracic surgeon, Dr Monaco help appreciated * s/p chest tube placed in ED. Repeat CXR shows re-expansion of right lung. * 12/31/17 Chest xray: no insitu right sided chest tube. No pneumothorax identified on this exam. * Surgery has clamped chest tube today for possible removal tomorrow * CT Chest (12/29/17): right chest tube. trace right pneumothorax. Minimal right lateral chest wall subcutaneous emphysema. Right lobe thyroid nodule. * pending THALIA, [id number], HIV 2.ESRD on HD Assessment/Plan * Nephrology (Dr. Sparrow) on consult-->help appreciated * Patient had completed HD after Shiley placement yesterday. Potassium improve. * Noted: as outpatient patient has outpatient dialysis schedule as MWF at [facility] on [facility] * Tentative plan is for fistulogram 3. Dilated Cardiomyopathy Assessment/Plan * Cardiac cath done in 08/2015 showed severe dilated cardiomyopathy and severe left ventricular systolic dysfunction, diastolic dysfunction and moderate pulmonary hypertension. Patient was placed on lifevest. * MUGA from 11/2015 showed normal EF: 61%; normal, d/c vest no icd continue optimal heart failure tx * Echo 10/2017 showed left ventricle is moderately dilated, moderate concentric left ventricle hypertrophy, systolic function is mildly impaired, EF 45%, grade II-pseudonormal filling, elevated left atrial pressure, right ventricle systolic function normal, left atrium moderately dilated, mild aortic regurgitation, mitral regurgitation mild, moderate tricuspid regurgitation, moderate pulmonary hypertension * ASA 81mg PO daily * Coreg on hold given borderline hypotension and bradycardia * Lisinopril on hold given hyperkalemia * Crestor 10mg PO HS 4. Pulmonary hypertension-out patient follow up 5. Prolonged QTC * Avoid meds prolong QTC * Monitor K and Mg2+ 6.Thyroid Nodule * Found on chest CT * Will need US outpatient 7.Thrombocytopenia * Downtrending * Will check for HIT/JOANA 8. PROPHYLAXIS * Pepcid 20mg PO daily * SCDs - DVT risk score of 1 * Renal Diet/Heart healthy * Hold chemical anticoagulation secondary to thrombocytopenia Disposition: Pending possible removal of chest tube tomorrow. Will need to f/u with nephrology in regards to dialysis and f/u vascular surgery about tentative plan for fistulogram.
[2017-12-31 17:20] LABS: PROTHROMBIN TIME 11.4 SECONDS (9.7-12.2)
[2018-01-01 06:25] LABS: BASO % 0.6 % (0.0-2.0); EOS # 0.1 K/uL (0.0-0.7); EOS % 2.6 % (0.0-4.0); HEMOGLOBIN 11.3 g/dL (12.0-18.0); LYMPH # 1.5 K/uL (1.0-4.3); LYMPH % 28.7 % (20.0-40.0); MEAN CELL VOLUME 92.3 fL (80.0-94.0); MEAN CORPUSCULAR HEMOGLOBIN 32.4 pg (27.0-31.0); MEAN CORPUSCULAR HGB CONC 35.1 g/dL (33.0-37.0); MEAN PLATELET VOLUME 9.3 fL (7.2-11.7); MONO # 0.5 K/uL (0.0-0.8); NEUT # 3.1 K/uL (1.8-7.0); NEUT % 59.1 % (50.0-75.0); RBC 3.48 Mil/uL (4.40-5.90); RED CELL DISTRIBUTION WIDTH 14.5 % (11.5-14.5); WHITE BLOOD COUNT 5.2 K/uL (4.8-10.8)
[2018-01-01 06:42] LABS: ALB/GLOB RATIO 1.4 (1.0-2.1); ALBUMIN 3.6 g/dL (3.5-5.0); CALCIUM 9.1 mg/dl (8.6-10.4)
--- NOTE | 2018-01-01 08:28 | RAD ---
HISTORY: pneumothorax COMPARISON: 12/31/2017. FINDINGS: LUNGS: The lungs are well inflated and clear. PLEURA: There is stable position of the right-sided chest tube. There is a tiny residual lateral pneumothorax No pleural effusions. CARDIOVASCULAR: Normal. OSSEOUS STRUCTURES: No significant abnormalities. VISUALIZED UPPER ABDOMEN: Normal. OTHER FINDINGS: None. IMPRESSION: Tiny residual lateral pneumothorax. Stable position of right chest tube. No acute findings.
[2018-01-01] MEDS ORDERED: Midazolam 2 MG/2 ML VIAL ONE (10:38)
--- NOTE | 2018-01-01 10:49 | CP.PCM.PN ---
Subjective - Date & Time of Evaluation Date of Evaluation: 01/01/18 Time of Evaluation: 10:47 - Subjective Subjective: Seen earlier; for fistulogram now to evaluate for recirculation BP controlled' has been alexi- carvediliol on hold pneumothorax has resolved- possibly to have CT removed later no other new complaints, no fevers, chills, n, v diarrhea Objective - Vital Signs/Intake and Output Vital Signs (last 24 hours): Temp Pulse Resp BP Pulse Ox 97.6 F 46 L 16 126/71 94 L 01/01/18 08:00 01/01/18 08:00 01/01/18 08:00 01/01/18 08:00 01/01/18 08:00 Intake and Output: 01/01/18 01/01/18 06:59 18:59 Intake Total 200 Output Total 29 Balance 171 - Medications Medications: Current Medications Aspirin (Aspirin Chewable) 81 mg PO DAILY [facility] Last Admin: 12/31/17 09:40 Dose: 81 mg Calcitriol (Rocaltrol) 0.25 mcg PO DAILY [facility] Last Admin: 12/31/17 09:40 Dose: 0.25 mcg Carvedilol (Coreg) 6.25 mg PO BID [facility] Cinacalcet (Sensipar) 30 mg PO DAILY [facility] Last Admin: 12/31/17 09:40 Dose: 30 mg Hydromorphone HCl (Dilaudid) 0.5 mg IVP Q6H PRN PRN Reason: Pain, severe (8-10) Last Admin: 12/30/17 18:11 Dose: 0.5 mg Pantoprazole Sodium (Protonix Ec Tab) 40 mg PO DAILY [facility] Last Admin: 12/31/17 09:42 Dose: 40 mg Rosuvastatin Calcium (Crestor) 10 mg PO HS [facility] Last Admin: 12/31/17 21:40 Dose: 10 mg Tramadol HCl (Ultram) 50 mg PO TID PRN PRN Reason: Pain, moderate (4-7) Last Admin: 12/31/17 21:46 Dose: 50 mg Vitamin B Complex/Vit C/Folic Acid (Nephro-Emi) 1 tab PO DAILY [facility] Last Admin: 12/31/17 09:40 Dose: 1 tab - Labs Labs: 01/01/18 06:13 01/01/18 06:13 PT 11.4 SECONDS (9.7-12.2) 12/31/17 17:12 INR 1.0 12/31/17 17:12 - Constitutional Appears: No Acute Distress, Chronically Ill - Head Exam Head Exam: ATRAUMATIC, NORMAL INSPECTION - Eye Exam Eye Exam: EOMI, Normal appearance - Neck Exam Neck Exam: Normal Inspection. absent: Tenderness - Respiratory Exam Respiratory Exam: Clear to Ausculation Bilateral, NORMAL BREATHING PATTERN - Cardiovascular Exam Cardiovascular Exam: Bradycardia, +S1 - GI/Abdominal Exam GI & Abdominal Exam: Soft. absent: Tenderness - Extremities Exam Extremities Exam: Normal Inspection. absent: Tenderness - Neurological Exam Neurological Exam: Awake, CN II-XII Intact - Skin Skin Exam: Dry, Warm Assessment and Plan (1) Cardiomyopathy Status: Acute (2) Hypertensive chronic kidney disease with stage 5 chronic kidney disease or end stage renal disease Status: Acute (3) IgA nephropathy Status: Acute - Assessment and Plan (Free Text) Plan: dialysis post angiogramn await angio results stop carvedilol
[2018-01-01] MEDS ORDERED: Lidocaine 2% MPF (5 ml) Inj ONE (10:52)
--- NOTE | 2018-01-01 11:25 | PCM.SURG1 ---
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 no central or arterial stenosis Post-Operative Diagnosis: mid fistula stenosis Operation Performed: fistulogram. and balloon angioplasty of fistula using 6 and 8 mm balloon Specimen/Specimens Removed: 0 Estimated Blood Loss: EBL {In ML}: 5 Blood Products Given: N/A Drains Used: No Drains Post-Op Condition: Good Date of Surgery/Procedure: 01/01/18 Time of Surgery/Procedure: 11:25
[2018-01-01] MEDS: Multivitamin Vitamin B Complex (Nephro-Vite) Tab PO SCH (12:07)
[2018-01-01] MEDS: Pantoprazole 40 mg EC Tab PO SCH (12:07)
--- NOTE | 2018-01-01 12:35 | CP.PCM.PN ---
<Yg Cash M - Last Filed: 01/01/18 20:45> Subjective - Date & Time of Evaluation Date of Evaluation: 01/01/18 Time of Evaluation: 12:55 - Subjective Subjective: PGY -[address] Cuellar Pt seen and examined at bedside. Pt seems comfortable in bed with no acute distress. Pt states he has minor discomfort at site of chest tube insertion. Pt has not pain at femoral shiley. Pt denies any chest pain, SOB, headaches, abdominal pain, nausea, vomiting, constipation. Objective - Vital Signs/Intake and Output Vital Signs (last 24 hours): Temp Pulse Resp BP Pulse Ox 97.6 F 46 L 16 126/71 94 L 01/01/18 08:00 01/01/18 08:00 01/01/18 08:00 01/01/18 08:00 01/01/18 08:00 Intake and Output: 01/01/18 01/01/18 06:59 18:59 Intake Total 200 Output Total 29 Balance 171 - Medications Medications: Current Medications Aspirin (Aspirin Chewable) 81 mg PO DAILY [facility] Last Admin: 01/01/18 12:07 Dose: 81 mg Calcitriol (Rocaltrol) 0.25 mcg PO DAILY [facility] Last Admin: 01/01/18 12:07 Dose: 0.25 mcg Cinacalcet (Sensipar) 30 mg PO DAILY [facility] Last Admin: 01/01/18 12:07 Dose: 30 mg Hydromorphone HCl (Dilaudid) 0.5 mg IVP Q6H PRN PRN Reason: Pain, severe (8-10) Last Admin: 12/30/17 18:11 Dose: 0.5 mg Pantoprazole Sodium (Protonix Ec Tab) 40 mg PO DAILY [facility] Last Admin: 01/01/18 12:07 Dose: 40 mg Rosuvastatin Calcium (Crestor) 10 mg PO HS [facility] Last Admin: 12/31/17 21:40 Dose: 10 mg Tramadol HCl (Ultram) 50 mg PO TID PRN PRN Reason: Pain, moderate (4-7) Last Admin: 12/31/17 21:46 Dose: 50 mg Vitamin B Complex/Vit C/Folic Acid (Nephro-Ciara) 1 tab PO DAILY [facility] Last Admin: 01/01/18 12:07 Dose: 1 tab - Labs Labs: 01/01/18 06:13 01/01/18 06:13 PT 11.4 SECONDS (9.7-12.2) 12/31/17 17:12 INR 1.0 12/31/17 17:12 - Constitutional Appears: Well, No Acute Distress - Head Exam Head Exam: NORMAL INSPECTION - Eye Exam Eye Exam: EOMI, Normal appearance - ENT Exam ENT Exam: Mucous Membranes Moist - Respiratory Exam Respiratory Exam: Clear to Ausculation Bilateral, NORMAL BREATHING PATTERN Additional comments: Tenderness at chest tube insertion, no erythema, discharge at insertion - Cardiovascular Exam Cardiovascular Exam: REGULAR RHYTHM, +S1, +S2 - GI/Abdominal Exam GI & Abdominal Exam: Soft, Normal Bowel Sounds. absent: Distended, Firm - Extremities Exam Extremities Exam: Full ROM, Normal Inspection - Neurological Exam Neurological Exam: Oriented x3 - Psychiatric Exam Psychiatric exam: Normal Affect, Normal Mood - Skin Skin Exam: Normal Color Assessment and Plan - Assessment and Plan (Free Text) Assessment: 1. Right pneumothorax 01/01: - Chest Xray - small pneumothorax - Chest CT - trace right pneumothorax, bibasilar dependent atelectasis - Surgery plans removal of chest tube in AM - Tramadol 50mg po TID prn - Dilaudid .5mg IVP q6h prn 2. ESRD on HD -Hyperkalemia did not resolve with dialysis on 12/29, suspect recirculation in AVF temporary femoral shiley placed on 12/30 and repeat dialysis- Dr. Michael consulted - hyperkalemia resolved on 12/31, BUN/Cr minimally improved patient will need fistulogram this week - Regular dialysis schedule of MWF at [facility] on [address] Meds: - Per vascular on 01/01, high grade mid fistula stenos, attempt at next dialysis Cont home med calcitriol 0.25mcg po qd Cont home med sensipar 30mg po qd Cont home med Nephro-ciara 1 tab po qd 3. CHF - Systolic and Diastolic - Cardiac cath done in 08/2015 showed severe dilated cardiomyopathy and severe left ventricular systolic dysfunction, diastolic dysfunction and moderate pulmonary hypertension. Patient was placed on lifevest. - Echo from 01/2016 showed normal EF - at that time lifevest was discontinued - Echo 10/2017 showed left ventricle is moderately dilated, moderate concentric left ventricle hypertrophy, systolic function is mildly impaired, EF 45%, grade II-pseudonormal filling, elevated left atrial pressure, right ventricle systolic function normal, left atrium moderately dilated, mild aortic regurgitation, mitral regurgitation mild, moderate tricuspid regurgitation, moderate pulmonary hypertension - Carvedilol 6.25mg PO BID (hold for systolic < 100 and/or HR < 60) - on hold due to bradycardia and hypotension we will resume once electrolytes improved and HR>60 - ASA 81mg PO - Crestor 10mg PO HS 4. Pulmonary hypertension - out patient follow up 5. Prolonged QTC - Avoid meds prolong QTC 6. Thyroid Nodule - Found on chest CT - Will need US outpatient 7. Prophylaxis - Protonix 40mg PO QD - SCDs - DVT risk score of 1 - Renal Diet/Heart healthy <Lena Cuellar V - Last Filed: 01/02/18 07:28> Objective - Vital Signs/Intake and Output Vital Signs (last 24 hours): Temp Pulse Resp BP Pulse Ox 98.2 F 54 L 15 146/79 97 01/02/18 04:00 01/02/18 04:00 01/02/18 04:00 01/02/18 04:00 01/02/18 04:00 - Medications Medications: Current Medications Aspirin (Aspirin Chewable) 81 mg PO DAILY [facility] Last Admin: 01/01/18 12:07 Dose: 81 mg Calcitriol (Rocaltrol) 0.25 mcg PO DAILY [facility] Last Admin: 01/01/18 12:07 Dose: 0.25 mcg Calcium Acetate (Phoslo) 1,334 mg PO ACTID [facility] Last Admin: 01/01/18 17:02 Dose: 1,334 mg Cinacalcet (Sensipar) 30 mg PO DAILY [facility] Last Admin: 01/01/18 12:07 Dose: 30 mg Pantoprazole Sodium (Protonix Ec Tab) 40 mg PO DAILY [facility] Last Admin: 01/01/18 12:07 Dose: 40 mg Rosuvastatin Calcium (Crestor) 10 mg PO HS [facility] Last Admin: 01/01/18 22:07 Dose: 10 mg Tramadol HCl (Ultram) 50 mg PO TID PRN PRN Reason: Pain, moderate (4-7) Last Admin: 01/02/18 00:02 Dose: 50 mg Vitamin B Complex/Vit C/Folic Acid (Nephro-Ciara) 1 tab PO DAILY [facility] Last Admin: 01/01/18 12:07 Dose: 1 tab - Labs Labs: 01/02/18 06:14 01/02/18 06:15 PT 11.4 SECONDS (9.7-12.2) 12/31/17 17:12 INR 1.0 12/31/17 17:12 Attending/Attestation - Attestation I have personally seen and examined this patient.: Yes I have fully participated in the care of the patient.: Yes I have reviewed all pertinent clinical information, including history, physical exam and plan: Yes Notes (Text): This is a late computer entry for 01/01/2018. Patient seen, examined, and case discussed with medical supervisor. Patient seen this morning reports localized pain to the chest tube over the right side. Patient denies any acute complaints. Case discussed with vascular surgery, patient underwent a fistulogram to view the snuffbox which revealed a high-grade stenosis. Spoke with patient's nurse Radha patient is ordered for dialysis today we will do it from the Shiley catheter that was reconfirmed with vascular surgery. Patient did have a chest x-ray this morning shows trace pneumothorax thoracic surgery has ordered for CT chest for this afternoon to evaluate the chest tube for potential for removal. Patient does have elevated phosphorus is not itchy limited discussed with the renal we'll start all PhosLo 1334 mg 3 times a day before meals. Patient continues to have thrombocytopenia no evidence of bleeding no evidence of PTK he start receiving any heparin with his dialysis. We will consult hematology, for further evaluation, I've spoken with Dr. Medina who is aware we' ll see the patient. 1.Spontaneous Right pneumothorax Assessment/Plan * Consult thoracic surgeon, Dr Monaco help appreciated * s/p chest tube placed in ED. Repeat CXR shows re-expansion of right lung. * 12/31/17 Chest xray: no insitu right sided chest tube. No pneumothorax identified on this exam. * Surgery has clamped chest tube today for possible removal * f/u CT chest * CT Chest (12/29/17): right chest tube. trace right pneumothorax. Minimal right lateral chest wall subcutaneous emphysema. Right lobe thyroid nodule. * pending THALIA, [id number], HIV 2.ESRD on HD Assessment/Plan * Nephrology (Dr. Sparrow) on consult-->help appreciated * via Shiley placement patient to have dialysis later today * Noted: as outpatient patient has outpatient dialysis schedule as MWF at [facility] on [address] * Has high-grade stenosis over the snuffbox dialysis axis. * Start PhosLo 1334 mg by mouth 3 times a day before meals 3. Dilated Cardiomyopathy Assessment/Plan * Cardiac cath done in 08/2015 showed severe dilated cardiomyopathy and severe left ventricular systolic dysfunction, diastolic dysfunction and moderate pulmonary hypertension. Patient was placed on lifevest. * MUGA from 11/2015 showed normal EF: 61%; normal, d/c vest no icd continue optimal heart failure tx * Echo 10/2017 showed left ventricle is moderately dilated, moderate concentric left ventricle hypertrophy, systolic function is mildly impaired, EF 45%, grade II-pseudonormal filling, elevated left atrial pressure, right ventricle systolic function normal, left atrium moderately dilated, mild aortic regurgitation, mitral regurgitation mild, moderate tricuspid regurgitation, moderate pulmonary hypertension * ASA 81mg PO daily * Coreg on hold given borderline hypotension and bradycardia * Lisinopril on hold given hyperkalemia * Crestor 10mg PO HS 4. Pulmonary hypertension-out patient follow up 5. Prolonged QTC * Avoid meds prolong QTC * Monitor K and Mg2+ 6.Thyroid Nodule * Found on chest CT * Will need US outpatient 7.Thrombocytopenia * Downtrending * Will check for HIT/JOANA * Hematology oncology consult 8. PROPHYLAXIS * Pepcid 20mg PO daily * SCDs - DVT risk score of 1 * Renal Diet/Heart healthy * Hold chemical anticoagulation secondary to thrombocytopenia Disposition: Pending possible removal of chest tube; will need to follow up with thoracic surgery. Patient to have dialysis via Shiley today. Will need to follow-up with vascular surgery regards to any intervention for snuffbox dialysis access.
--- NOTE | 2018-01-01 14:19 | CP.PCM.PN ---
Subjective - Date & Time of Evaluation Date of Evaluation: 01/01/18 Time of Evaluation: 14:17 - Subjective Subjective: Surgery: Dr. Monaco Pt seen and examined. Mild discomfort on deep inspiration, otherwise no complaints. Objective - Vital Signs/Intake and Output Vital Signs (last 24 hours): Temp Pulse Resp BP Pulse Ox 97.6 F 46 L 16 126/71 94 L 01/01/18 08:00 01/01/18 08:00 01/01/18 08:00 01/01/18 08:00 01/01/18 08:00 Intake and Output: 01/01/18 01/01/18 06:59 18:59 Intake Total 200 Output Total 29 Balance 171 - Medications Medications: Current Medications Aspirin (Aspirin Chewable) 81 mg PO DAILY [facility] Last Admin: 01/01/18 12:07 Dose: 81 mg Calcitriol (Rocaltrol) 0.25 mcg PO DAILY [facility] Last Admin: 01/01/18 12:07 Dose: 0.25 mcg Calcium Acetate (Phoslo) 1,334 mg PO ACTID [facility] Cinacalcet (Sensipar) 30 mg PO DAILY [facility] Last Admin: 01/01/18 12:07 Dose: 30 mg Hydromorphone HCl (Dilaudid) 0.5 mg IVP Q6H PRN PRN Reason: Pain, severe (8-10) Last Admin: 12/30/17 18:11 Dose: 0.5 mg Pantoprazole Sodium (Protonix Ec Tab) 40 mg PO DAILY [facility] Last Admin: 01/01/18 12:07 Dose: 40 mg Rosuvastatin Calcium (Crestor) 10 mg PO HS [facility] Last Admin: 12/31/17 21:40 Dose: 10 mg Tramadol HCl (Ultram) 50 mg PO TID PRN PRN Reason: Pain, moderate (4-7) Last Admin: 12/31/17 21:46 Dose: 50 mg Vitamin B Complex/Vit C/Folic Acid (Nephro-Emi) 1 tab PO DAILY [facility] Last Admin: 01/01/18 12:07 Dose: 1 tab - Labs Labs: 01/01/18 06:13 01/01/18 06:13 PT 11.4 SECONDS (9.7-12.2) 12/31/17 17:12 INR 1.0 12/31/17 17:12 - Constitutional Appears: Non-toxic, No Acute Distress - Head Exam Head Exam: ATRAUMATIC, NORMOCEPHALIC - Eye Exam Eye Exam: EOMI - ENT Exam ENT Exam: Mucous Membranes Moist - Respiratory Exam Respiratory Exam: NORMAL BREATHING PATTERN. absent: Accessory Muscle Use, Respiratory Distress Additional comments: R CT in place, tidling, no leak - Cardiovascular Exam Cardiovascular Exam: REGULAR RHYTHM - GI/Abdominal Exam GI & Abdominal Exam: Soft. absent: Distended, Firm, Guarding, Rigid, Tenderness - Extremities Exam Extremities Exam: absent: Calf Tenderness, Pedal Edema - Neurological Exam Neurological Exam: Alert, Awake, Oriented x3 Assessment and Plan - Assessment and Plan (Free Text) Assessment: 32M w. R PTX, s/p CT placement -R CT 29cc/12hr, serosang, tidling, no leak -CXR no PTX -will get CT chest, possibly remove chest tube based on findings -d/w attending Haydeeitis PGY4
--- NOTE | 2018-01-01 17:36 | CT ---
PROCEDURE: CT Chest without contrast HISTORY: PTX COMPARISON: Contrast chest CT 12/20/2017. TECHNIQUE: Contiguous axial images were obtained through the chest without intravenous contrast enhancement. Sagittal and coronal reconstructions were performed. Radiation dose (DLP): 542.51 mGy-cm. This CT exam was performed using one or more of the following dose reduction techniques: Automated exposure control, adjustment of the mA and/or kV according to patient size, and/or use of iterative reconstruction technique. FINDINGS: MEDIASTINUM: Unremarkable thoracic aorta. No aneurysm. Normal sized heart. Main pulmonary artery unremarkable. No vascular congestion. No lymphadenopathy. PLEURA: Right-sided chest tube stable in position terminating at the right apex posteriorly once again. Trace pneumothorax is appreciated at the right base anterior to the right middle lobe inferiorly borderline increased but still remaining a minimal finding. Bibasilar dependent atelectasis is developing slightly greater the right than left sides. No left pneumothorax. Central airways remain clear. Trace right chest wall emphysema noted local to the chest tube. BONES: No fracture. No destructive lesion. UPPER ABDOMEN: Grossly unremarkable. OTHER FINDINGS: None. IMPRESSION: Right chest tube unchanged in position. Trace right pneumothorax appreciated marginally increased in the interval but still minimal in overall volume. Developing bibasilar dependent atelectasis noted slightly greater the right than left sides. Trace emphysematous or right chest wall findings
--- NOTE | 2018-01-01 17:56 | CARD ---
APPROVED REPORT EKG Measurement Heart [id number] <Conclusion> Marked sinus bradycardia T wave abnormality, consider anterior ischemia Abnormal ECG
--- NOTE | 2018-01-01 18:25 | CP.PCM.PN ---
Subjective - Date & Time of Evaluation Date of Evaluation: 01/01/18 Time of Evaluation: 18:18 - Subjective Subjective: Pt s/e. cxr this am-tiny pneumothorax CT chest: confirms the above finding. chest tube-30cc/seraosanguinous-No air leak. Negative intrapleural pressure. I am inclined to consider that we are dealing with a space problem rather than pneumothorax. Recommend d/c chest tube in am tomorrow. Will d/w Dr. Genao. Objective - Vital Signs/Intake and Output Vital Signs (last 24 hours): Temp Pulse Resp BP Pulse Ox 98.2 F 54 L 16 115/72 97 01/01/18 16:00 01/01/18 16:00 01/01/18 16:00 01/01/18 16:00 01/01/18 16:00 Intake and Output: 01/01/18 01/01/18 06:59 18:59 Intake Total 200 240 Output Total 29 150 Balance 171 90 - Medications Medications: Current Medications Aspirin (Aspirin Chewable) 81 mg PO DAILY [facility] Last Admin: 01/01/18 12:07 Dose: 81 mg Calcitriol (Rocaltrol) 0.25 mcg PO DAILY [facility] Last Admin: 01/01/18 12:07 Dose: 0.25 mcg Calcium Acetate (Phoslo) 1,334 mg PO ACTID [facility] Last Admin: 01/01/18 17:02 Dose: 1,334 mg Cinacalcet (Sensipar) 30 mg PO DAILY [facility] Last Admin: 01/01/18 12:07 Dose: 30 mg Pantoprazole Sodium (Protonix Ec Tab) 40 mg PO DAILY [facility] Last Admin: 01/01/18 12:07 Dose: 40 mg Rosuvastatin Calcium (Crestor) 10 mg PO HS [facility] Last Admin: 12/31/17 21:40 Dose: 10 mg Tramadol HCl (Ultram) 50 mg PO TID PRN PRN Reason: Pain, moderate (4-7) Last Admin: 12/31/17 21:46 Dose: 50 mg Vitamin B Complex/Vit C/Folic Acid (Nephro-Emi) 1 tab PO DAILY [facility] Last Admin: 01/01/18 12:07 Dose: 1 tab - Labs Labs: 01/01/18 06:13 01/01/18 06:13 PT 11.4 SECONDS (9.7-12.2) 12/31/17 17:12 INR 1.0 12/31/17 17:12
[2018-01-02 06:30] LABS: BASO % 0.5 % (0.0-2.0); EOS # 0.1 K/uL (0.0-0.7); HEMOGLOBIN 11.2 g/dL (12.0-18.0); LYMPH # 0.9 K/uL (1.0-4.3); LYMPH % 15.9 % (20.0-40.0); MEAN CELL VOLUME 92.8 fL (80.0-94.0); MEAN CORPUSCULAR HEMOGLOBIN 32.1 pg (27.0-31.0); MEAN CORPUSCULAR HGB CONC 34.6 g/dL (33.0-37.0); MEAN PLATELET VOLUME 9.4 fL (7.2-11.7); MONO # 0.4 K/uL (0.0-0.8); MONO % 7.5 % (0.0-10.0); NEUT # 4.2 K/uL (1.8-7.0); NEUT % 74.1 % (50.0-75.0); RBC 3.49 Mil/uL (4.40-5.90); RED CELL DISTRIBUTION WIDTH 14.2 % (11.5-14.5); WHITE BLOOD COUNT 5.7 K/uL (4.8-10.8)
[2018-01-02 06:45] LABS: ALB/GLOB RATIO 1.4 (1.0-2.1); ALBUMIN 3.6 g/dL (3.5-5.0); CALCIUM 9.1 mg/dl (8.6-10.4)
--- NOTE | 2018-01-02 07:05 | CP.PCM.PN ---
<Yg Cash - Last Filed: 01/02/18 19:55> Subjective - Date & Time of Evaluation Date of Evaluation: 01/02/18 Time of Evaluation: 10:10 - Subjective Subjective: PGY1 Resident Note for Dr. Cuellar Pt seen and examined at bedside. Pt is lying in bed in no acute distress. Pt has no complaints, denies chest pain, difficulty breathing, headaches, vomiting , diarrhea, constipation. Objective - Vital Signs/Intake and Output Vital Signs (last 24 hours): Temp Pulse Resp BP Pulse Ox 98.2 F 54 L 15 146/79 97 01/02/18 04:00 01/02/18 04:00 01/02/18 04:00 01/02/18 04:00 01/02/18 04:00 - Medications Medications: Current Medications Aspirin (Aspirin Chewable) 81 mg PO DAILY [facility] Last Admin: 01/01/18 12:07 Dose: 81 mg Calcitriol (Rocaltrol) 0.25 mcg PO DAILY [facility] Last Admin: 01/01/18 12:07 Dose: 0.25 mcg Calcium Acetate (Phoslo) 1,334 mg PO ACTID [facility] Last Admin: 01/01/18 17:02 Dose: 1,334 mg Cinacalcet (Sensipar) 30 mg PO DAILY [facility] Last Admin: 01/01/18 12:07 Dose: 30 mg Pantoprazole Sodium (Protonix Ec Tab) 40 mg PO DAILY [facility] Last Admin: 01/01/18 12:07 Dose: 40 mg Rosuvastatin Calcium (Crestor) 10 mg PO HS [facility] Last Admin: 01/01/18 22:07 Dose: 10 mg Sodium Polystyrene Sulfonate (Kayexalate Susp) 30 gm PO ONCE ONE Stop: 01/02/18 07:03 Tramadol HCl (Ultram) 50 mg PO TID PRN PRN Reason: Pain, moderate (4-7) Last Admin: 01/02/18 00:02 Dose: 50 mg Vitamin B Complex/Vit C/Folic Acid (Nephro-Ciraa) 1 tab PO DAILY [facility] Last Admin: 01/01/18 12:07 Dose: 1 tab - Labs Labs: 01/02/18 06:14 01/02/18 06:15 PT 11.4 SECONDS (9.7-12.2) 12/31/17 17:12 INR 1.0 12/31/17 17:12 - Constitutional Appears: Well, No Acute Distress - Head Exam Head Exam: NORMAL INSPECTION - Eye Exam Eye Exam: EOMI, Normal appearance - ENT Exam ENT Exam: Mucous Membranes Moist - Respiratory Exam Respiratory Exam: Chest Wall Tenderness, Clear to Ausculation Bilateral, NORMAL BREATHING PATTERN Additional comments: Pt has minor tenderness at chest tube location. - Cardiovascular Exam Cardiovascular Exam: +S1, +S2. absent: Murmur - GI/Abdominal Exam GI & Abdominal Exam: Soft, Normal Bowel Sounds - Extremities Exam Extremities Exam: Normal Capillary Refill, Normal Inspection - Neurological Exam Neurological Exam: Alert, Awake, Oriented x3 - Psychiatric Exam Psychiatric exam: Normal Affect, Normal Mood - Skin Skin Exam: Dry, Normal Color Assessment and Plan - Assessment and Plan (Free Text) Plan: 1. Right pneumothorax 01/02: - Chest tube removed by surgery - Chest Xray revels trace pneumothorax - Tramadol 50mg po TID prn - Dilaudid .5mg IVP q6h prn 2. ESRD on HD 01/02: -Pt had dialysis today @ ~3pm -BMP ordered for 9pm, monitor electrolytes -Kayexalate 30 mg once ordered in AM for K+ of >6 01/01: -Hyperkalemia did not resolve with dialysis on 12/29, suspect recirculation in AVF temporary femoral shiley placed on 12/30 and repeat dialysis- Dr. Michael consulted - hyperkalemia resolved on 12/31, BUN/Cr minimally improved patient will need fistulogram this week - Regular dialysis schedule of MWF at [facility] on [address] Meds: - Per vascular on 01/01, high grade mid fistula stenos, attempt at next dialysis Cont home med calcitriol 0.25mcg po qd Cont home med sensipar 30mg po qd Cont home med Nephro-ciara 1 tab po qd 3. Thrombocytopenia 01/02 -87k for past 2 days, possibly due to dialysis -Heme/onc consulted - thanks for recs 4. CHF - Systolic and Diastolic - Cardiac cath done in 08/2015 showed severe dilated cardiomyopathy and severe left ventricular systolic dysfunction, diastolic dysfunction and moderate pulmonary hypertension. Patient was placed on lifevest. - Echo from 01/2016 showed normal EF - at that time lifevest was discontinued - Echo 10/2017 showed left ventricle is moderately dilated, moderate concentric left ventricle hypertrophy, systolic function is mildly impaired, EF 45%, grade II-pseudonormal filling, elevated left atrial pressure, right ventricle systolic function normal, left atrium moderately dilated, mild aortic regurgitation, mitral regurgitation mild, moderate tricuspid regurgitation, moderate pulmonary hypertension - Carvedilol 6.25mg PO BID (hold for systolic < 100 and/or HR < 60) - on hold due to bradycardia and hypotension we will resume once electrolytes improved and HR>60 - ASA 81mg PO - Crestor 10mg PO HS 5. Pulmonary hypertension - out patient follow up 6. Prolonged QTC - Avoid meds prolong QTC 7. Thyroid Nodule - Found on chest CT - Will need US outpatient 8. Prophylaxis - Protonix 40mg PO QD - SCDs - DVT risk score of 1 - Renal Diet/Heart healthy <Lena Cuellar V - Last Filed: 01/02/18 20:10> Objective - Vital Signs/Intake and Output Vital Signs (last 24 hours): Temp Pulse Resp BP Pulse Ox 98.3 F 60 25 H 131/89 99 01/02/18 16:35 01/02/18 18:00 01/02/18 16:35 01/02/18 16:35 01/02/18 16:35 Intake and Output: 01/02/18 01/03/18 18:59 06:59 Intake Total 600 Output Total 1550 Balance -950 - Medications Medications: Current Medications Aspirin (Aspirin Chewable) 81 mg PO DAILY [facility] Last Admin: 01/02/18 09:04 Dose: 81 mg Calcitriol (Rocaltrol) 0.25 mcg PO DAILY [facility] Last Admin: 01/02/18 09:04 Dose: 0.25 mcg Calcium Acetate (Phoslo) 1,334 mg PO ACTID [facility] Last Admin: 01/02/18 17:08 Dose: 1,334 mg Cinacalcet (Sensipar) 30 mg PO DAILY [facility] Last Admin: 01/02/18 09:04 Dose: 30 mg Pantoprazole Sodium (Protonix Ec Tab) 40 mg PO DAILY [facility] Last Admin: 01/02/18 09:04 Dose: 40 mg Rosuvastatin Calcium (Crestor) 10 mg PO HS [facility] Last Admin: 01/01/18 22:07 Dose: 10 mg Tramadol HCl (Ultram) 50 mg PO TID PRN PRN Reason: Pain, moderate (4-7) Last Admin: 01/02/18 00:02 Dose: 50 mg Vitamin B Complex/Vit C/Folic Acid (Nephro-Ciara) 1 tab PO DAILY [facility] Last Admin: 01/02/18 09:05 Dose: 1 tab - Labs Labs: 01/02/18 06:14 01/02/18 06:15 PT 11.4 SECONDS (9.7-12.2) 12/31/17 17:12 INR 1.0 12/31/17 17:12 Attending/Attestation - Attestation I have personally seen and examined this patient.: Yes I have fully participated in the care of the patient.: Yes I have reviewed all pertinent clinical information, including history, physical exam and plan: Yes Notes (Text): Patient seen, examined, and case discussed with medical data entry clerk. Patient seen this morning reports localized pain to the chest tube over the right side. Patient denies any acute complaints. Patient did have a chest x-ray this morning shows resolution of pneumothorax. Cardiothoracic surgery have come and evaluated patient have removed Chest tube later this evening. Patient received dose of Kayexlate this AM, did not have bowel movement, patient ordered for short dialysis this evening by renal given hyperkalemia. Patient continues to have thrombocytopenia no evidence of bleeding no evidence of petechiae he start receiving any heparin with his dialysis. Discussed with heme-oncology, monitor platelets at this time. HIT/JOANA are negative. Recommend hepatitis/hiv if not already ordered. 1.Spontaneous Right pneumothorax Assessment/Plan * Consult thoracic surgeon, Dr Monaco help appreciated * s/p chest tube placed in ED. Repeat CXR shows re-expansion of right lung. * 12/31/17 Chest xray: no insitu right sided chest tube. No pneumothorax identified on this exam. * Surgery has clamped chest tube 01/01 for possible removal * Chest Xray (01/02/18): resolution right pneumothorax. No other significant interval change. * Chest Xray (01/02/18): trace right lateral pneumothorax, post chest tube removal. * CT Chest (12/29/17): right chest tube. trace right pneumothorax. Minimal right lateral chest wall subcutaneous emphysema. Right lobe thyroid nodule. * pending THALIA, [id number]: 89 (within normal limits); pending phenotype , HIV 2.ESRD on HD Assessment/Plan * Nephrology (Dr. Sparrow) on consult-->help appreciated * via Shiley placement patient to have dialysis later * Will have short dialysis today given hyperkalemia; ordered for Kayexlate today * Noted: as outpatient patient has outpatient dialysis schedule as MWF at [facility] on [address] * Has high-grade stenosis over the snuffbox dialysis axis. * Start PhosLo 1334 mg by mouth 3 times a day before meals 3. Dilated Cardiomyopathy Assessment/Plan * Cardiac cath done in 08/2015 showed severe dilated cardiomyopathy and severe left ventricular systolic dysfunction, diastolic dysfunction and moderate pulmonary hypertension. Patient was placed on lifevest. * MUGA from 11/2015 showed normal EF: 61%; normal, d/c vest no icd continue optimal heart failure tx * Echo 10/2017 showed left ventricle is moderately dilated, moderate concentric left ventricle hypertrophy, systolic function is mildly impaired, EF 45%, grade II-pseudonormal filling, elevated left atrial pressure, right ventricle systolic function normal, left atrium moderately dilated, mild aortic regurgitation, mitral regurgitation mild, moderate tricuspid regurgitation, moderate pulmonary hypertension * ASA 81mg PO daily * Coreg on hold given borderline hypotension and bradycardia * Lisinopril on hold given hyperkalemia * Crestor 10mg PO HS 4. Pulmonary hypertension-out patient follow up 5. Prolonged QTC * Avoid meds prolong QTC * Monitor K and Mg2+ 6.Thyroid Nodule * Found on chest CT * Will need US outpatient 7.Thrombocytopenia * Hematology oncology (Dr. Christina Medina) consult-->help appreciated * Downtrending * HIT: negative * JOANA: negative 8. PROPHYLAXIS * Pepcid 20mg PO daily * SCDs - DVT risk score of 1 * Renal Diet/Heart healthy * Hold chemical anticoagulation secondary to thrombocytopenia Disposition: Patient to have dialysis via Shiley today given hyperkalemia. patient had chest tube removed today.
[2018-01-02] MEDS ORDERED: Sod Polystyrene Sulf 15 gm/60 ml Susp PO ONE ×2 (07:15→21:51)
[2018-01-02] MEDS: Pantoprazole 40 mg EC Tab PO SCH (09:04)
[2018-01-02] MEDS: Multivitamin Vitamin B Complex (Nephro-Vite) Tab PO SCH (09:05)
--- NOTE | 2018-01-02 09:35 | CP.PCM.PN ---
Subjective - Date & Time of Evaluation Date of Evaluation: 01/02/18 Time of Evaluation: 09:33 - Subjective Subjective: s/p thrombectomy AV access stenosis s/p dialysis 7/2 via cath K 6.6 this AM- cath not working well chest tube still in place Objective - Vital Signs/Intake and Output Vital Signs (last 24 hours): Temp Pulse Resp BP Pulse Ox 98.1 F 51 L 15 148/88 98 01/02/18 07:58 01/02/18 08:00 01/02/18 07:58 01/02/18 07:58 01/02/18 07:58 - Medications Medications: Current Medications Aspirin (Aspirin Chewable) 81 mg PO DAILY [facility] Last Admin: 01/02/18 09:04 Dose: 81 mg Calcitriol (Rocaltrol) 0.25 mcg PO DAILY [facility] Last Admin: 01/02/18 09:04 Dose: 0.25 mcg Calcium Acetate (Phoslo) 1,334 mg PO ACTID [facility] Last Admin: 01/02/18 07:25 Dose: 1,334 mg Cinacalcet (Sensipar) 30 mg PO DAILY [facility] Last Admin: 01/02/18 09:04 Dose: 30 mg Pantoprazole Sodium (Protonix Ec Tab) 40 mg PO DAILY [facility] Last Admin: 01/02/18 09:04 Dose: 40 mg Rosuvastatin Calcium (Crestor) 10 mg PO HS [facility] Last Admin: 01/01/18 22:07 Dose: 10 mg Tramadol HCl (Ultram) 50 mg PO TID PRN PRN Reason: Pain, moderate (4-7) Last Admin: 01/02/18 00:02 Dose: 50 mg Vitamin B Complex/Vit C/Folic Acid (Nephro-Emi) 1 tab PO DAILY [facility] Last Admin: 01/02/18 09:05 Dose: 1 tab - Labs Labs: 01/02/18 06:14 01/02/18 06:15 PT 11.4 SECONDS (9.7-12.2) 12/31/17 17:12 INR 1.0 12/31/17 17:12 - Constitutional Appears: No Acute Distress, Chronically Ill - Head Exam Head Exam: ATRAUMATIC, NORMAL INSPECTION - Eye Exam Eye Exam: EOMI, Normal appearance - Neck Exam Neck Exam: Normal Inspection. absent: Tenderness - Respiratory Exam Respiratory Exam: Clear to Ausculation Bilateral, NORMAL BREATHING PATTERN - Cardiovascular Exam Cardiovascular Exam: REGULAR RHYTHM, +S1 - GI/Abdominal Exam GI & Abdominal Exam: Soft. absent: Tenderness - Extremities Exam Extremities Exam: Normal Inspection. absent: Tenderness - Neurological Exam Neurological Exam: Awake, CN II-XII Intact - Skin Skin Exam: Dry, Warm Assessment and Plan (1) Cardiomyopathy Status: Acute (2) Hypertensive chronic kidney disease with stage 5 chronic kidney disease or end stage renal disease Status: Acute (3) IgA nephropathy Status: Acute - Assessment and Plan (Free Text) Plan: repeat dialysis now for hyperkalemia- use AV access CT management as per CTS
--- NOTE | 2018-01-02 11:06 | RAD ---
HISTORY: pneumothorax COMPARISON: Chest radiograph dated 01/01/2018. FINDINGS: LUNGS: No active pulmonary disease. PLEURA: No significant pleural effusion identified, no pneumothorax apparent. CARDIOVASCULAR: Normal. OSSEOUS STRUCTURES: No significant abnormalities. VISUALIZED UPPER ABDOMEN: Normal. OTHER FINDINGS: Right-sided large-bore chest tube, unchanged. IMPRESSION: Resolution right pneumothorax. No other significant interval change.
--- NOTE | 2018-01-02 12:46 | CP.PCM.CON ---
History of Present Illness - History of Present Illness History of Present Illness: 32 year old male with a history of cardiomyopathy, IgA nephropathy, ESRD on HD, admitted with spontaneous right sided pneumothorax, with thrombocytopenia and anemia. The patient denies blood problems in the past. He notes to feeling better since his chest tube has been placed. Review of his labs shows intermittent thrombocytopenia since 2016. Past medical history: Cardiomyopathy, IgA nephropathy, ESRD Past surgical history: AV fistula Family history: Yasmany hematologic and oncologic problems Social history: Denies tobacco, alcohol, and illicit drug use Allergies: NKA Review of systemsL All remaining review of systems including HEENT, cardiovascular, respiratory, gastrointestinal, genitourinary, musculoskeletal, dermatologic, neurologic, and psychiatric are negative unless mentioned in the HPI. Past Patient History - Infectious Disease Hx of Infectious Diseases: None - Tetanus Immunizations Tetanus Immunization: Unknown - Past Medical History & Family History Past Medical History?: Yes Past Family History: Reviewed and not pertinent - Past Social History Smoking Status: Never Smoked Chewing Tobacco Use: No Cigar Use: No Alcohol: None Drugs: Denies Home Situation {Lives}: With Family - CARDIAC Hx Hypercholesterolemia: Yes Hx Hypertension: Yes - PULMONARY Other/Comment: SOB A COUPLE DAYS AGO - NEUROLOGICAL Hx Neurological Disorder: No - HEENT Other/Comment: L EYE BLURRY - RENAL Hx Chronic Kidney Disease: No Date of Last Dialysis Treatment: 12/27/17 - ENDOCRINE/METABOLIC Hx Endocrine Disorders: No - HEMATOLOGICAL/ONCOLOGICAL Hx Blood Disorders: No - INTEGUMENTARY Hx Dermatological Problems: No - MUSCULOSKELETAL/RHEUMATOLOGICAL Hx Musculoskeletal Disorders: No Hx Falls: No - GASTROINTESTINAL Hx Gastrointestinal Disorders: No - GENITOURINARY/GYNECOLOGICAL Other/Comment: Dilaysis ; MWF - PSYCHIATRIC Hx Substance Use: No - SURGICAL HISTORY Hx Surgeries: No Other/Comment: Lt. arm AV shunt insertion - ANESTHESIA Hx Anesthesia: Yes Hx Anesthesia Reactions: No Hx Malignant Hyperthermia: No Has any member of the family had a problem w/ anesthesia?: No Meds Allergies/Adverse Reactions: Allergies Allergy/AdvReac Type Severity Reaction Status Date / Time No Known Allergies Allergy Verified 12/28/17 12:00 - Medications Medications: Current Medications Aspirin (Aspirin Chewable) 81 mg PO DAILY [facility] Last Admin: 01/02/18 09:04 Dose: 81 mg Calcitriol (Rocaltrol) 0.25 mcg PO DAILY [facility] Last Admin: 01/02/18 09:04 Dose: 0.25 mcg Calcium Acetate (Phoslo) 1,334 mg PO ACTID [facility] Last Admin: 01/02/18 12:35 Dose: 1,334 mg Cinacalcet (Sensipar) 30 mg PO DAILY [facility] Last Admin: 01/02/18 09:04 Dose: 30 mg Pantoprazole Sodium (Protonix Ec Tab) 40 mg PO DAILY [facility] Last Admin: 01/02/18 09:04 Dose: 40 mg Rosuvastatin Calcium (Crestor) 10 mg PO HS [facility] Last Admin: 01/01/18 22:07 Dose: 10 mg Tramadol HCl (Ultram) 50 mg PO TID PRN PRN Reason: Pain, moderate (4-7) Last Admin: 01/02/18 00:02 Dose: 50 mg Vitamin B Complex/Vit C/Folic Acid (Nephro-Emi) 1 tab PO DAILY [facility] Last Admin: 01/02/18 09:05 Dose: 1 tab Physical Exam - Head Exam Head Exam: ATRAUMATIC - Eye Exam Eye Exam: Normal appearance - ENT Exam ENT Exam: Mucous Membranes Dry - Respiratory Exam Respiratory Exam: NORMAL BREATHING PATTERN - Cardiovascular Exam Cardiovascular Exam: +S1, +S2 - GI/Abdominal Exam GI & Abdominal Exam: Normal Bowel Sounds - Extremities Exam Extremities exam: Positive for: normal inspection - Neurological Exam Neurological exam: Oriented x3 - Psychiatric Exam Psychiatric exam: Normal Affect, Normal Mood - Skin Skin Exam: Warm Results - Vital Signs Recent Vital Signs: Last Vital Signs Temp 98.1 F 01/02/18 07:58 Pulse 51 L 01/02/18 08:00 Resp 15 01/02/18 07:58 BP 148/88 01/02/18 07:58 Pulse Ox 98 01/02/18 07:58 - Labs Result Diagrams: 01/02/18 21:16 01/02/18 22:16 Labs: Laboratory Results - last 24 hr 12/28/17 01/02/18 01/02/18 18:50 06:14 06:15 WBC 5.7 RBC 3.49 L Hgb 11.2 L Hct 32.4 L MCV 92.8 MCH 32.1 H MCHC 34.6 RDW 14.2 Plt Count 87 L MPV 9.4 Neut % (Auto) 74.1 Lymph % (Auto) 15.9 L [place] % (Auto) 7.5 Eos % (Auto) 2.0 Baso % (Auto) 0.5 Neut # (Auto) 4.2 Lymph # (Auto) 0.9 L [place] # (Auto) 0.4 Eos # (Auto) 0.1 Baso # (Auto) 0.0 Sodium 142 Potassium 6.6 H* D Chloride 102 Carbon Dioxide 26 Anion Gap 21 H BUN 60 H Creatinine 10.7 H* Est GFR ( Amer) 7 Est GFR (Non-Af Amer) 6 Random Glucose 85 Calcium 9.1 Phosphorus 7.6 H Magnesium 2.5 H Total Bilirubin 0.4 AST 10 L ALT 32 Alkaline Phosphatase 36 L Total Protein 6.3 Albumin 3.6 Globulin 2.7 Albumin/Globulin Ratio 1.4 [id number] 86 Assessment & Plan (1) Thrombocytopenia Assessment and Plan: recommend checking manual plt count to rule out plt clumping ( pseudothrombocytopenia) chronic since 2016 f/u heparin Ab and serotonin release assay f/u HIV and hepatitis panel ? ITP Status: Acute (2) Anemia Status: Acute (3) Anemia Assessment and Plan: f/u retic count, b12, folate, ferritin anemia of CKD; JHONNY per renal Thank you for this interesting consult. Status: Acute
--- NOTE | 2018-01-02 13:03 | CP.PCM.PN ---
Subjective - Date & Time of Evaluation Date of Evaluation: 01/02/18 Time of Evaluation: 12:57 - Subjective Subjective: pt s/e. No c/o. Getting ready for HD this afternoon. Chest tube-No air leak. A negative intrapleural pressure. Scanty drainage. cxr today: No pneumothorax. a/p: d/c chest tube as intended by resident staff today. Objective - Vital Signs/Intake and Output Vital Signs (last 24 hours): Temp Pulse Resp BP Pulse Ox 98.1 F 66 22 139/84 98 01/02/18 12:00 01/02/18 12:00 01/02/18 12:00 01/02/18 12:00 01/02/18 12:00 - Medications Medications: Current Medications Aspirin (Aspirin Chewable) 81 mg PO DAILY [facility] Last Admin: 01/02/18 09:04 Dose: 81 mg Calcitriol (Rocaltrol) 0.25 mcg PO DAILY [facility] Last Admin: 01/02/18 09:04 Dose: 0.25 mcg Calcium Acetate (Phoslo) 1,334 mg PO ACTID [facility] Last Admin: 01/02/18 12:35 Dose: 1,334 mg Cinacalcet (Sensipar) 30 mg PO DAILY [facility] Last Admin: 01/02/18 09:04 Dose: 30 mg Pantoprazole Sodium (Protonix Ec Tab) 40 mg PO DAILY [facility] Last Admin: 01/02/18 09:04 Dose: 40 mg Rosuvastatin Calcium (Crestor) 10 mg PO HS [facility] Last Admin: 01/01/18 22:07 Dose: 10 mg Tramadol HCl (Ultram) 50 mg PO TID PRN PRN Reason: Pain, moderate (4-7) Last Admin: 01/02/18 00:02 Dose: 50 mg Vitamin B Complex/Vit C/Folic Acid (Nephro-Emi) 1 tab PO DAILY [facility] Last Admin: 01/02/18 09:05 Dose: 1 tab - Labs Labs: 01/02/18 06:14 01/02/18 06:15 PT 11.4 SECONDS (9.7-12.2) 12/31/17 17:12 INR 1.0 12/31/17 17:12
--- NOTE | 2018-01-02 18:15 | RAD ---
HISTORY: s/p chest tube removal COMPARISON: Chest radiograph performed approximately 12 hours prior. FINDINGS: LUNGS: No active pulmonary disease. PLEURA: No significant pleural effusion identified. Trace right lateral pneumothorax. CARDIOVASCULAR: Normal. OSSEOUS STRUCTURES: No significant abnormalities. VISUALIZED UPPER ABDOMEN: Normal. OTHER FINDINGS: Large bore right-sided chest tube removed. IMPRESSION: Trace right lateral pneumothorax post chest tube removal.
[2018-01-02 21:20] LABS: BASO % 0.5 % (0.0-2.0); EOS # 0.1 K/uL (0.0-0.7); HEMOGLOBIN 11.8 g/dL (12.0-18.0); LYMPH # 0.7 K/uL (1.0-4.3); LYMPH % 10.4 % (20.0-40.0); MEAN CORPUSCULAR HEMOGLOBIN 31.9 pg (27.0-31.0); MEAN CORPUSCULAR HGB CONC 34.7 g/dL (33.0-37.0); MEAN PLATELET VOLUME 8.6 fL (7.2-11.7); MONO # 0.5 K/uL (0.0-0.8); MONO % 7.9 % (0.0-10.0); NEUT % 79.2 % (50.0-75.0); NRBC % 0.1 % (0.0-2.0); RBC 3.7 Mil/uL (4.40-5.90); RED CELL DISTRIBUTION WIDTH 14.3 % (11.5-14.5); WHITE BLOOD COUNT 6.3 K/uL (4.8-10.8)
[2018-01-02 21:43] LABS: CALCIUM 3.9 mg/dl (8.6-10.4)
[2018-01-02] MEDS ORDERED: Albuterol-Ipratrop 3 mg / 0.5 (3 ml) UD INH STA (21:51)
[2018-01-02 22:08] LABS: HEPATITIS B SURFACE AG Negative (NEGATIVE)
[2018-01-02 22:14] LABS: HEPATITIS A IGM NEGATIVE (NEGATIVE); HEPATITIS B CORE AB NEGATIVE (NEGATIVE)
[2018-01-02 22:26] LABS: HEPATITIS C ANTIBODY NEGATIVE (NEGATIVE)
[2018-01-02 22:42] LABS: CALCIUM 9.2 mg/dl (8.6-10.4)
[2018-01-03 06:10] LABS: BASO % 0.6 % (0.0-2.0); EOS # 0.1 K/uL (0.0-0.7); EOS % 2.4 % (0.0-4.0); HEMOGLOBIN 10.8 g/dL (12.0-18.0); LYMPH % 19.8 % (20.0-40.0); MEAN CELL VOLUME 92.4 fL (80.0-94.0); MEAN CORPUSCULAR HEMOGLOBIN 32.2 pg (27.0-31.0); MEAN CORPUSCULAR HGB CONC 34.9 g/dL (33.0-37.0); MEAN PLATELET VOLUME 8.7 fL (7.2-11.7); MONO # 0.4 K/uL (0.0-0.8); MONO % 8.6 % (0.0-10.0); NEUT # 3.4 K/uL (1.8-7.0); NEUT % 68.6 % (50.0-75.0); RBC 3.33 Mil/uL (4.40-5.90); RED CELL DISTRIBUTION WIDTH 14.5 % (11.5-14.5)
[2018-01-03 06:32] LABS: ALB/GLOB RATIO 1.6 (1.0-2.1); ALBUMIN 3.6 g/dL (3.5-5.0); CALCIUM 8.9 mg/dl (8.6-10.4)
--- NOTE | 2018-01-03 06:54 | CP.PCM.PN ---
<Yg Cash M - Last Filed: 01/03/18 18:14> Subjective - Date & Time of Evaluation Date of Evaluation: 01/03/18 Time of Evaluation: 09:10 - Subjective Subjective: PGY1 Resident Note for Dr. Cuellar Pt seen and examined at bedside. Pt was lying in bed on the phone in no acute distress. Pt has no complaints. Pt denies headaches, chest pain, difficulty breathing, diarrhea, constipation, nausea, and vommiting. Pt states his chest tube location has no residual tenderness from yesterdays removal. Pt additionally denies any pain at femoral shiley location. Pt states dialysis yesterday was performed through is port on left arm. Objective - Vital Signs/Intake and Output Vital Signs (last 24 hours): Temp Pulse Resp BP Pulse Ox 98.4 F 68 18 130/83 99 01/03/18 00:00 01/03/18 00:00 01/03/18 00:00 01/03/18 00:00 01/03/18 00:00 Intake and Output: 01/02/18 01/03/18 18:59 06:59 Intake Total 600 Output Total 1550 Balance -950 - Medications Medications: Current Medications Aspirin (Aspirin Chewable) 81 mg PO DAILY [facility] Last Admin: 01/02/18 09:04 Dose: 81 mg Calcitriol (Rocaltrol) 0.25 mcg PO DAILY [facility] Last Admin: 01/02/18 09:04 Dose: 0.25 mcg Calcium Acetate (Phoslo) 1,334 mg PO ACTID [facility] Last Admin: 01/02/18 17:08 Dose: 1,334 mg Cinacalcet (Sensipar) 30 mg PO DAILY [facility] Last Admin: 01/02/18 09:04 Dose: 30 mg Pantoprazole Sodium (Protonix Ec Tab) 40 mg PO DAILY [facility] Last Admin: 01/02/18 09:04 Dose: 40 mg Rosuvastatin Calcium (Crestor) 10 mg PO HS [facility] Last Admin: 01/02/18 22:09 Dose: 10 mg Tramadol HCl (Ultram) 50 mg PO TID PRN PRN Reason: Pain, moderate (4-7) Last Admin: 01/02/18 00:02 Dose: 50 mg Vitamin B Complex/Vit C/Folic Acid (Nephro-Ciara) 1 tab PO DAILY [facility] Last Admin: 01/02/18 09:05 Dose: 1 tab - Labs Labs: 01/03/18 05:59 01/03/18 06:00 PT 11.4 SECONDS (9.7-12.2) 12/31/17 17:12 INR 1.0 12/31/17 17:12 - Constitutional Appears: Well, No Acute Distress - Head Exam Head Exam: NORMAL INSPECTION - Eye Exam Eye Exam: EOMI, Normal appearance - ENT Exam ENT Exam: Mucous Membranes Moist - Respiratory Exam Respiratory Exam: Clear to Ausculation Bilateral, NORMAL BREATHING PATTERN. absent: Rales, Rhonchi, Wheezes - Cardiovascular Exam Cardiovascular Exam: +S1, +S2 - GI/Abdominal Exam GI & Abdominal Exam: Soft, Normal Bowel Sounds. absent: Guarding, Rigid - Extremities Exam Extremities Exam: Full ROM. absent: Pedal Edema, Tenderness Additional comments: Pt has femoral shiley location clean and dry with dressing intact. Pt has intact AV fistula on L arm. - Neurological Exam Neurological Exam: Alert, Awake, Oriented x3 - Psychiatric Exam Psychiatric exam: Normal Affect, Normal Mood - Skin Skin Exam: Dry, Normal Color Assessment and Plan - Assessment and Plan (Free Text) Plan: 1. Right pneumothorax 01/03: - AM Chest Xray shows resolution of pneumothorax - Chest tube removed by surgery on 01/02 - Chest tube site clean, dry, dressing intact - Tramadol 50mg po TID prn - Dilaudid .5mg IVP q6h prn 2. ESRD on HD 01/03: -Pt had diaylsis 01/02 through AV fistula - working & functional -Per verbal communication with Dialysis nurse, pt will have Dialysis tomorrow 01/04 -Femoral Shiley removed & dressing placed 01/02: -Pt had dialysis today @ ~3pm -BMP ordered for 9pm, monitor electrolytes -Kayexalate 30 mg once ordered in AM for K+ of >6 01/01: -Hyperkalemia did not resolve with dialysis on 12/29, suspect recirculation in AVF temporary femoral shiley placed on 12/30 and repeat dialysis- Dr. Michael consulted - hyperkalemia resolved on 12/31, BUN/Cr minimally improved patient will need fistulogram this week - Regular dialysis schedule of MWF at [facility] on [address] Meds: - Per vascular on 01/01, high grade mid fistula stenos, attempt at next dialysis Cont home med calcitriol 0.25mcg po qd Cont home med sensipar 30mg po qd Cont home med Nephro-ciara 1 tab po qd 3. Thrombocytopenia 01/03 -81k platlet count today -Hep Ab assay neg, serotonin assay neg. -F/u ID recs HIV, Hep, rectic, B12, folate, ferritin 01/02 -87k for past 2 days, possibly due to dialysis -Heme/onc consulted - thanks for recs 4. CHF - Systolic and Diastolic 01/03 -D/C telemetry 01/02 - Cardiac cath done in 08/2015 showed severe dilated cardiomyopathy and severe left ventricular systolic dysfunction, diastolic dysfunction and moderate pulmonary hypertension. Patient was placed on lifevest. - Echo from 01/2016 showed normal EF - at that time lifevest was discontinued - Echo 10/2017 showed left ventricle is moderately dilated, moderate concentric left ventricle hypertrophy, systolic function is mildly impaired, EF 45%, grade II-pseudonormal filling, elevated left atrial pressure, right ventricle systolic function normal, left atrium moderately dilated, mild aortic regurgitation, mitral regurgitation mild, moderate tricuspid regurgitation, moderate pulmonary hypertension - Carvedilol 6.25mg PO BID (hold for systolic < 100 and/or HR < 60) - on hold due to bradycardia and hypotension we will resume once electrolytes improved and HR>60 - ASA 81mg PO - Crestor 10mg PO HS 5. Pulmonary hypertension - out patient follow up 6. Prolonged QTC - Avoid meds prolong QTC 7. Thyroid Nodule - Found on chest CT - Will need US outpatient 8. Prophylaxis - Protonix 40mg PO QD - SCDs - DVT risk score of 1 - Renal Diet/Heart healthy <Lena Cuellar V - Last Filed: 01/04/18 07:23> Objective - Vital Signs/Intake and Output Vital Signs (last 24 hours): Temp Pulse Resp BP Pulse Ox 98.4 F 64 20 142/86 99 01/04/18 00:00 01/04/18 00:00 01/04/18 00:00 01/04/18 00:00 01/04/18 00:00 Intake and Output: 01/04/18 01/04/18 06:59 18:59 Intake Total 480 Balance 480 - Medications Medications: Current Medications Aspirin (Aspirin Chewable) 81 mg PO DAILY [facility] Last Admin: 01/03/18 09:25 Dose: 81 mg Calcitriol (Rocaltrol) 0.25 mcg PO DAILY [facility] Last Admin: 01/03/18 09:25 Dose: 0.25 mcg Calcium Acetate (Phoslo) 1,334 mg PO ACTID [facility] Last Admin: 01/03/18 15:20 Dose: 1,334 mg Cinacalcet (Sensipar) 30 mg PO DAILY [facility] Last Admin: 01/03/18 09:25 Dose: 30 mg Pantoprazole Sodium (Protonix Ec Tab) 40 mg PO DAILY [facility] Last Admin: 01/03/18 09:25 Dose: 40 mg Rosuvastatin Calcium (Crestor) 10 mg PO HS [facility] Last Admin: 01/03/18 22:04 Dose: 10 mg Tramadol HCl (Ultram) 50 mg PO TID PRN PRN Reason: Pain, moderate (4-7) Last Admin: 01/02/18 00:02 Dose: 50 mg Vitamin B Complex/Vit C/Folic Acid (Nephro-Ciara) 1 tab PO DAILY [facility] Last Admin: 01/03/18 10:07 Dose: 1 tab - Labs Labs: 01/03/18 05:59 01/03/18 06:00 PT 11.4 SECONDS (9.7-12.2) 12/31/17 17:12 INR 1.0 12/31/17 17:12 Attending/Attestation - Attestation I have personally seen and examined this patient.: Yes I have fully participated in the care of the patient.: Yes I have reviewed all pertinent clinical information, including history, physical exam and plan: Yes Notes (Text): This is late computer entry for 01/03/18. Patient seen, examined, and case discussed with medical equipment technician with at bedside. Patient denies any acute complaints. Patient did have a chest x-ray this morning shows resolution of pneumothorax. Cardiothoracic surgery have come and evaluated patient have removed Chest tube yesterday. Discussed case with nephrology, recommends to remove Shiley catheter and reports snuffbox shunt is working well during yesterday dialysis. Resident has spoken with vascular surgery team, Shiley removed in the afternoon. We will plan for discharge after next dialysis session. Will continue to monitor platelets. 1.Spontaneous Right pneumothorax Assessment/Plan * Consult thoracic surgeon, Dr Monaco help appreciated * s/p chest tube placed in ED. Repeat CXR shows re-expansion of right lung. * 12/31/17 Chest xray: no insitu right sided chest tube. No pneumothorax identified on this exam. * Surgery has clamped chest tube 01/01 for possible removal; removed 01/02/18 * Chest Xray (01/02/18): resolution right pneumothorax. No other significant interval change. * Chest Xray (01/02/18): trace right lateral pneumothorax, post chest tube removal. * CT Chest (12/29/17): right chest tube. trace right pneumothorax. Minimal right lateral chest wall subcutaneous emphysema. Right lobe thyroid nodule. * pending THALIA, [id number]: 89 (within normal limits); pending phenotype , HIV 2.ESRD on HD Assessment/Plan * Nephrology (Dr. Sparrow) on consult-->help appreciated * via Shiley placement patient to have dialysis later * Will have short dialysis today given hyperkalemia; ordered for Kayexlate today * Noted: as outpatient patient has outpatient dialysis schedule as MWF at [facility] * Has high-grade stenosis over the snuffbox dialysis axis. * Start PhosLo 1334 mg by mouth 3 times a day before meals 3. Dilated Cardiomyopathy Assessment/Plan * Cardiac cath done in 08/2015 showed severe dilated cardiomyopathy and severe left ventricular systolic dysfunction, diastolic dysfunction and moderate pulmonary hypertension. Patient was placed on lifevest. * MUGA from 11/2015 showed normal EF: 61%; normal, d/c vest no icd continue optimal heart failure tx * Echo 10/2017 showed left ventricle is moderately dilated, moderate concentric left ventricle hypertrophy, systolic function is mildly impaired, EF 45%, grade II-pseudonormal filling, elevated left atrial pressure, right ventricle systolic function normal, left atrium moderately dilated, mild aortic regurgitation, mitral regurgitation mild, moderate tricuspid regurgitation, moderate pulmonary hypertension * ASA 81mg PO daily * Coreg on hold given borderline hypotension and bradycardia * Lisinopril on hold given hyperkalemia * Crestor 10mg PO HS 4. Pulmonary hypertension-out patient follow up 5. Prolonged QTC * Avoid meds prolong QTC * Monitor K and Mg2+ 6.Thyroid Nodule * Found on chest CT * Will need US outpatient 7.Thrombocytopenia * Hematology oncology (Dr. Christina Medina) consult-->help appreciated * HIT: negative * JOANA: negative * monitor * f/u hepatitis and HIV 8. PROPHYLAXIS * Pepcid 20mg PO daily * SCDs - DVT risk score of 1 * Renal Diet/Heart healthy * Hold chemical anticoagulation secondary to thrombocytopenia Disposition: Shiley catheter to be removed; discharge after dialysis tomorrow.
--- NOTE | 2018-01-03 08:01 | CP.PCM.PN ---
Subjective - Date & Time of Evaluation Date of Evaluation: 01/03/18 Time of Evaluation: 07:57 - Subjective Subjective: Cardiothoracic Surgery Progress Note for Dr. Monaco This 32M was seen and examined this Am at bedside. No acute events overnight. Patient denies any chest pain or SOB. No new complaints at this time. Objective - Vital Signs/Intake and Output Vital Signs (last 24 hours): Temp Pulse Resp BP Pulse Ox 98.4 F 50 L 18 130/83 99 01/03/18 00:00 01/03/18 07:32 01/03/18 00:00 01/03/18 00:00 01/03/18 00:00 Intake and Output: 01/03/18 01/03/18 06:59 18:59 Intake Total 850 Balance 850 - Medications Medications: Current Medications Aspirin (Aspirin Chewable) 81 mg PO DAILY [facility] Last Admin: 01/02/18 09:04 Dose: 81 mg Calcitriol (Rocaltrol) 0.25 mcg PO DAILY [facility] Last Admin: 01/02/18 09:04 Dose: 0.25 mcg Calcium Acetate (Phoslo) 1,334 mg PO ACTID [facility] Last Admin: 01/02/18 17:08 Dose: 1,334 mg Cinacalcet (Sensipar) 30 mg PO DAILY [facility] Last Admin: 01/02/18 09:04 Dose: 30 mg Pantoprazole Sodium (Protonix Ec Tab) 40 mg PO DAILY [facility] Last Admin: 01/02/18 09:04 Dose: 40 mg Rosuvastatin Calcium (Crestor) 10 mg PO HS [facility] Last Admin: 01/02/18 22:09 Dose: 10 mg Tramadol HCl (Ultram) 50 mg PO TID PRN PRN Reason: Pain, moderate (4-7) Last Admin: 01/02/18 00:02 Dose: 50 mg Vitamin B Complex/Vit C/Folic Acid (Nephro-Emi) 1 tab PO DAILY [facility] Last Admin: 01/02/18 09:05 Dose: 1 tab - Labs Labs: 01/03/18 05:59 01/03/18 06:00 PT 11.4 SECONDS (9.7-12.2) 12/31/17 17:12 INR 1.0 12/31/17 17:12 - Constitutional Appears: Non-toxic, No Acute Distress - Head Exam Head Exam: ATRAUMATIC, NORMOCEPHALIC - Eye Exam Eye Exam: EOMI - ENT Exam ENT Exam: Mucous Membranes Moist - Respiratory Exam Respiratory Exam: NORMAL BREATHING PATTERN - Cardiovascular Exam Cardiovascular Exam: +S1, +S2 - GI/Abdominal Exam GI & Abdominal Exam: Soft. absent: Distended, Firm, Guarding, Rigid, Tenderness - Neurological Exam Neurological Exam: Alert, Awake - Psychiatric Exam Psychiatric exam: Normal Affect, Normal Mood - Skin Skin Exam: Dry, Intact Assessment and Plan - Assessment and Plan (Free Text) Assessment: 32M with spontaneous pneumothorax s/p chest tube removal Post pull cxr with residual pneumothorax repeat cxr this AM reads resolution of pneumothorax Patient is clear for discharge from surgical perspective May shower in 2 days, no soaking/baths/pools for [address] Monaco's office upon discharge to schedule followup in 1-2 weeks D/W Dr. Carlos Enrique King PGY2
--- NOTE | 2018-01-03 08:25 | CP.PCM.PN ---
Subjective - Date & Time of Evaluation Date of Evaluation: 01/03/18 Time of Evaluation: 08:23 - Subjective Subjective: s/p extra HD 01/02 repeat K of 8 was in error feels ok now; no new complaint chest tube removed Av fistula worked well 01/02 Objective - Vital Signs/Intake and Output Vital Signs (last 24 hours): Temp Pulse Resp BP Pulse Ox 98.4 F 50 L 18 130/83 99 01/03/18 00:00 01/03/18 07:32 01/03/18 00:00 01/03/18 00:00 01/03/18 00:00 Intake and Output: 01/03/18 01/03/18 06:59 18:59 Intake Total 850 Balance 850 - Medications Medications: Current Medications Aspirin (Aspirin Chewable) 81 mg PO DAILY [facility] Last Admin: 01/02/18 09:04 Dose: 81 mg Calcitriol (Rocaltrol) 0.25 mcg PO DAILY [facility] Last Admin: 01/02/18 09:04 Dose: 0.25 mcg Calcium Acetate (Phoslo) 1,334 mg PO ACTID [facility] Last Admin: 01/02/18 17:08 Dose: 1,334 mg Cinacalcet (Sensipar) 30 mg PO DAILY [facility] Last Admin: 01/02/18 09:04 Dose: 30 mg Pantoprazole Sodium (Protonix Ec Tab) 40 mg PO DAILY [facility] Last Admin: 01/02/18 09:04 Dose: 40 mg Rosuvastatin Calcium (Crestor) 10 mg PO HS [facility] Last Admin: 01/02/18 22:09 Dose: 10 mg Tramadol HCl (Ultram) 50 mg PO TID PRN PRN Reason: Pain, moderate (4-7) Last Admin: 01/02/18 00:02 Dose: 50 mg Vitamin B Complex/Vit C/Folic Acid (Nephro-Emi) 1 tab PO DAILY [facility] Last Admin: 01/02/18 09:05 Dose: 1 tab - Labs Labs: 01/03/18 05:59 01/03/18 06:00 PT 11.4 SECONDS (9.7-12.2) 12/31/17 17:12 INR 1.0 12/31/17 17:12 - Constitutional Appears: No Acute Distress, Chronically Ill - Head Exam Head Exam: ATRAUMATIC, NORMAL INSPECTION - Eye Exam Eye Exam: EOMI, Normal appearance - Neck Exam Neck Exam: Normal Inspection. absent: Tenderness - Respiratory Exam Respiratory Exam: Clear to Ausculation Bilateral, NORMAL BREATHING PATTERN - Cardiovascular Exam Cardiovascular Exam: REGULAR RHYTHM, +S1 - GI/Abdominal Exam GI & Abdominal Exam: Soft. absent: Tenderness - Extremities Exam Extremities Exam: Normal Inspection. absent: Tenderness - Neurological Exam Neurological Exam: Awake, CN II-XII Intact - Skin Skin Exam: Dry, Warm Assessment and Plan (1) Cardiomyopathy Status: Acute (2) Hypertensive chronic kidney disease with stage 5 chronic kidney disease or end stage renal disease Status: Acute (3) IgA nephropathy Status: Acute - Assessment and Plan (Free Text) Plan: regular dialysis today- use AV access same meds
[2018-01-03] MEDS: Pantoprazole 40 mg EC Tab PO SCH (09:25)
[2018-01-03] MEDS: Multivitamin Vitamin B Complex (Nephro-Vite) Tab PO SCH (10:07)
--- NOTE | 2018-01-03 10:33 | RAD ---
HISTORY: s/p chest tube removal COMPARISON: Chest radiograph dated 01/02/2018. FINDINGS: LUNGS: No active pulmonary disease. PLEURA: No significant pleural effusion identified, no pneumothorax apparent. CARDIOVASCULAR: Normal. OSSEOUS STRUCTURES: No significant abnormalities. VISUALIZED UPPER ABDOMEN: Normal. OTHER FINDINGS: None. IMPRESSION: Resolution of right pneumothorax.
--- NOTE | 2018-01-04 06:52 | CP.PCM.PN ---
Objective - Vital Signs/Intake and Output Vital Signs (last 24 hours): Temp Pulse Resp BP Pulse Ox 98.4 F 64 20 142/86 99 01/04/18 00:00 01/04/18 00:00 01/04/18 00:00 01/04/18 00:00 01/04/18 00:00 Intake and Output: 01/03/18 01/04/18 18:59 06:59 Intake Total 700 480 Output Total 95 Balance 605 480 - Medications Medications: Current Medications Aspirin (Aspirin Chewable) 81 mg PO DAILY [facility] Last Admin: 01/03/18 09:25 Dose: 81 mg Calcitriol (Rocaltrol) 0.25 mcg PO DAILY [facility] Last Admin: 01/03/18 09:25 Dose: 0.25 mcg Calcium Acetate (Phoslo) 1,334 mg PO ACTID [facility] Last Admin: 01/03/18 15:20 Dose: 1,334 mg Cinacalcet (Sensipar) 30 mg PO DAILY [facility] Last Admin: 01/03/18 09:25 Dose: 30 mg Pantoprazole Sodium (Protonix Ec Tab) 40 mg PO DAILY [facility] Last Admin: 01/03/18 09:25 Dose: 40 mg Rosuvastatin Calcium (Crestor) 10 mg PO HS [facility] Last Admin: 01/03/18 22:04 Dose: 10 mg Tramadol HCl (Ultram) 50 mg PO TID PRN PRN Reason: Pain, moderate (4-7) Last Admin: 01/02/18 00:02 Dose: 50 mg Vitamin B Complex/Vit C/Folic Acid (Nephro-Emi) 1 tab PO DAILY [facility] Last Admin: 01/03/18 10:07 Dose: 1 tab - Labs Labs: 01/03/18 05:59 01/03/18 06:00 PT 11.4 SECONDS (9.7-12.2) 12/31/17 17:12 INR 1.0 12/31/17 17:12
[2018-01-04 07:42] LABS: BASO % 0.7 % (0.0-2.0); EOS # 0.1 K/uL (0.0-0.7); EOS % 3.5 % (0.0-4.0); HEMOGLOBIN 10.5 g/dL (12.0-18.0); LYMPH % 24.6 % (20.0-40.0); MEAN CELL VOLUME 91.2 fL (80.0-94.0); MEAN CORPUSCULAR HEMOGLOBIN 32.1 pg (27.0-31.0); MEAN CORPUSCULAR HGB CONC 35.2 g/dL (33.0-37.0); MEAN PLATELET VOLUME 8.8 fL (7.2-11.7); MONO # 0.4 K/uL (0.0-0.8); MONO % 8.5 % (0.0-10.0); NEUT # 2.6 K/uL (1.8-7.0); NEUT % 62.7 % (50.0-75.0); NRBC % 0.1 % (0.0-2.0); RBC 3.28 Mil/uL (4.40-5.90); RED CELL DISTRIBUTION WIDTH 14.6 % (11.5-14.5); WHITE BLOOD COUNT 4.1 K/uL (4.8-10.8)
[2018-01-04 08:22] LABS: ALB/GLOB RATIO 1.5 (1.0-2.1); ALBUMIN 3.7 g/dL (3.5-5.0); ALT/SGPT 28 U/L (21-72); AST/SGOT 13 U/L (17-59); BLOOD UREA NITROGEN 81 mg/dL (9-20); CALCIUM 9.6 mg/dl (8.6-10.4); GFR AFRICAN-AMERICAN 6; GFR NON-AFRICAN AMERICAN 5
[2018-01-04 08:48] LABS: FOLATE > 20.0 ng/mL
--- NOTE | 2018-01-04 09:15 | CP.PCM.PN ---
Subjective - Date & Time of Evaluation Date of Evaluation: 01/04/18 Time of Evaluation: 09:12 - Subjective Subjective: s/p dialysis 7/4- UF 1500ml feels better no CPs, SOB, f, c, n, v used AVF post revision fem cath removed Objective - Vital Signs/Intake and Output Vital Signs (last 24 hours): Temp Pulse Resp BP Pulse Ox 98.3 F 62 20 128/78 99 01/04/18 08:00 01/04/18 08:00 01/04/18 08:00 01/04/18 08:00 01/04/18 08:00 Intake and Output: 01/04/18 01/04/18 06:59 18:59 Intake Total 630 Balance 630 - Medications Medications: Current Medications Aspirin (Aspirin Chewable) 81 mg PO DAILY [facility] Last Admin: 01/03/18 09:25 Dose: 81 mg Calcitriol (Rocaltrol) 0.25 mcg PO DAILY [facility] Last Admin: 01/03/18 09:25 Dose: 0.25 mcg Calcium Acetate (Phoslo) 1,334 mg PO ACTID [facility] Last Admin: 01/04/18 08:20 Dose: 1,334 mg Cinacalcet (Sensipar) 30 mg PO DAILY [facility] Last Admin: 01/03/18 09:25 Dose: 30 mg Pantoprazole Sodium (Protonix Ec Tab) 40 mg PO DAILY [facility] Last Admin: 01/03/18 09:25 Dose: 40 mg Rosuvastatin Calcium (Crestor) 10 mg PO HS [facility] Last Admin: 01/03/18 22:04 Dose: 10 mg Tramadol HCl (Ultram) 50 mg PO TID PRN PRN Reason: Pain, moderate (4-7) Last Admin: 01/02/18 00:02 Dose: 50 mg Vitamin B Complex/Vit C/Folic Acid (Nephro-Emi) 1 tab PO DAILY [facility] Last Admin: 01/03/18 10:07 Dose: 1 tab - Labs Labs: 01/04/18 07:05 01/04/18 07:05 PT 11.4 SECONDS (9.7-12.2) 12/31/17 17:12 INR 1.0 12/31/17 17:12 - Constitutional Appears: No Acute Distress, Chronically Ill - Head Exam Head Exam: ATRAUMATIC, NORMAL INSPECTION - Eye Exam Eye Exam: EOMI, Normal appearance - Neck Exam Neck Exam: Normal Inspection. absent: Tenderness - Respiratory Exam Respiratory Exam: Clear to Ausculation Bilateral, NORMAL BREATHING PATTERN - Cardiovascular Exam Cardiovascular Exam: REGULAR RHYTHM, +S1 - GI/Abdominal Exam GI & Abdominal Exam: Soft. absent: Tenderness - Extremities Exam Extremities Exam: Normal Inspection. absent: Tenderness - Neurological Exam Neurological Exam: Alert, CN II-XII Intact - Skin Skin Exam: Dry, Warm Assessment and Plan (1) Cardiomyopathy Status: Acute (2) Hypertensive chronic kidney disease with stage 5 chronic kidney disease or end stage renal disease Status: Acute (3) IgA nephropathy Status: Acute - Assessment and Plan (Free Text) Plan: repeat dialysis todayb as K elevated return to regular HD schedule MWF starting tomorrow AV F working well labs acceptable
[2018-01-04] MEDS: Multivitamin Vitamin B Complex (Nephro-Vite) Tab PO SCH ×2 (10:00→14:26)
[2018-01-04] MEDS: Pantoprazole 40 mg EC Tab PO SCH ×2 (10:00→14:26)
[2018-01-04 17:15] VITALS: BP 108/63; PULSE 62; RESP 20; TEMP 98.3; O2SAT 100
--- NOTE | 2018-01-04 17:42 | CP.PCM.DIS ---
Provider - Provider Date of Admission: 12/28/17 15:29 Attending physician: Lena Cuellar DO Primary care physician: [facility] in [facility] Consults: Dr. Sparrow, Dr Monaco, Dr. Robison Time Spent in preparation of Discharge (in minutes): 40 Hospital Course - Lab Results Lab Results: Micro Results 12/28/17 22:47 Nose MRSA Culture (Admit) - Final MRSA NOT DETECTED Most Recent Lab Values WBC 4.1 K/uL (4.8-10.8) L 01/04/18 07:05 RBC 3.28 Mil/uL (4.40-5.90) L 01/04/18 07:05 Hgb 10.5 g/dL (12.0-18.0) L 01/04/18 07:05 Hct 29.9 % (35.0-51.0) L 01/04/18 07:05 MCV 91.2 fL (80.0-94.0) 01/04/18 07:05 MCH 32.1 pg (27.0-31.0) H 01/04/18 07:05 MCHC 35.2 g/dL (33.0-37.0) 01/04/18 07:05 RDW 14.6 % (11.5-14.5) H 01/04/18 07:05 Plt Count 86 K/uL (130-400) L 01/04/18 07:05 MPV 8.8 fL (7.2-11.7) 01/04/18 07:05 Neut % (Auto) 62.7 % (50.0-75.0) 01/04/18 07:05 Lymph % (Auto) 24.6 % (20.0-40.0) 01/04/18 07:05 Arthur % (Auto) 8.5 % (0.0-10.0) 01/04/18 07:05 Eos % (Auto) 3.5 % (0.0-4.0) 01/04/18 07:05 Baso % (Auto) 0.7 % (0.0-2.0) 01/04/18 07:05 Neut # (Auto) 2.6 K/uL (1.8-7.0) 01/04/18 07:05 Lymph # (Auto) 1.0 K/uL (1.0-4.3) 01/04/18 07:05 Arthur # (Auto) 0.4 K/uL (0.0-0.8) 01/04/18 07:05 Eos # (Auto) 0.1 K/uL (0.0-0.7) 01/04/18 07:05 Baso # (Auto) 0.0 K/uL (0.0-0.2) 01/04/18 07:05 Differential Comment 12/31/17 06:51 Retic Count 0.3 % (0.5-1.5) L D 01/04/18 07:05 PT 11.4 SECONDS (9.7-12.2) 12/31/17 17:12 INR 1.0 12/31/17 17:12 Sodium 139 mmol/L (132-148) 01/04/18 07:05 Potassium 5.4 mmol/L (3.6-5.2) H 01/04/18 07:05 Chloride 96 mmol/L (98-107) L 01/04/18 07:05 Carbon Dioxide 26 mmol/L (22-30) 01/04/18 07:05 Anion Gap 22 (10-20) H 01/04/18 07:05 BUN 81 mg/dL (9-20) H 01/04/18 07:05 Creatinine 11.9 mg/dL (0.8-1.5) H* D 01/04/18 07:05 Est GFR ( Amer) 6 01/04/18 07:05 Est GFR (Non-Af Amer) 5 01/04/18 07:05 POC Glucose (mg/dL) 97 mg/dL (65-110) 12/31/17 11:14 Random Glucose 93 mg/dL (75-110) 01/04/18 07:05 Lactic Acid 1.0 mmol/L (0.7-2.1) 12/28/17 18:52 Calcium 9.6 mg/dl (8.6-10.4) 01/04/18 07:05 Phosphorus 9.3 mg/dL (2.5-4.5) H 01/04/18 07:05 Magnesium 2.6 mg/dL (1.6-2.3) H 01/04/18 07:05 Ferritin 719.0 ng/mL 01/04/18 07:05 Total Bilirubin 0.6 mg/dL (0.2-1.3) 01/04/18 07:05 AST 13 U/L (17-59) L 01/04/18 07:05 ALT 28 U/L (21-72) 01/04/18 07:05 Alkaline Phosphatase 30 U/L (38-126) L 01/04/18 07:05 Total Creatine Kinase 67 U/L (55-170) 12/28/17 13:12 Troponin I 0.0130 ng/mL (0.00-0.120) 12/28/17 13:12 Total Protein 6.2 g/dL (6.3-8.3) L 01/04/18 07:05 Albumin 3.7 g/dL (3.5-5.0) 01/04/18 07:05 Globulin 2.5 gm/dL (2.2-3.9) 01/04/18 07:05 Albumin/Globulin Ratio 1.5 (1.0-2.1) 01/04/18 07:05 A1AT Clinical Indicatr Not given 12/28/17 18:50 A1AT Referred By Not given 12/28/17 18:50 Qjjka-8-[id number] 86 mg/dL (83-199) 12/28/17 18:50 Alpha-1-AT Phenotype See note 12/28/17 18:50 A1AT Mutation TNP 12/28/17 18:50 UF Heparin Interp Negative (Negative) 12/31/17 12:02 Vitamin B12 819 pg/mL (239-931) 01/04/18 07:05 Folate > 20.0 ng/mL 01/04/18 07:05 THALIA Nuclear Membr Pat Positive (Negative) H 12/28/17 18:50 Heparin-induced Plt Ab Negative (Negative) 12/31/17 12:02 JOANA UFH Low Dose 0.1 0 % Release 12/31/17 12:02 JOANA UFH Low Dose 0.5 0 % Release 12/31/17 12:02 JOANA UFH High Dose 100 0 % Release 12/31/17 12:02 Hepatitis A IgM Ab Negative (NEGATIVE) 01/02/18 21:17 Hep Bs Antigen Negative (NEGATIVE) 01/02/18 21:17 Hep Bs Antibody Positive (NEGATIVE) 01/02/18 21:17 Hep B Core IgM Ab Negative (NEGATIVE) 01/02/18 21:17 Hepatitis C Antibody Negative (NEGATIVE) 01/02/18 21:17 HIV 1&2 Antibody Screen Negative (NEGATIVE) 01/02/18 21:16 - Hospital Course Hospital Course: This is a 32 yo male, originally from [place], with past medical hx of CHF systolic/diastolic dysfunction, cardiomyopathy, pulmonary hypertension, renal cysts, and ESRD on HD, presenting today to [facility] ER with chief complaint of right-sided chest pain and shortness of breath. He stated he woke up 4 days ago with right-sided chest pain which he thought would go away on it's own. However the pain worsened, he also had dyspnea which he stated prompted him to take deep breaths. He admitted to increased shortness of breath with ambulation. He denies trauma, palpitations, abdominal pain, urinary sx, diarrhea, constipation , fevers, cough. He states he's complaint with his medications and has not missed a HD session. During hospital course, pt had chest tube inserted for trace right pneumothorax. Pt had chest tube inserted for resolution. During stay patient also had dialysis to treat his ESRD. During his stay, pt had a femoral shiley temporally inserted due to issues of his AV fistula. Following further workup, there was a high grade stenosis proximal to his AV fistula, however, after additional trial, the AV fistula is patent for use. Pt also had a thrombocytopenia workup by Heme/ Onc for platlet count of of 80s. Pt tests were negative for HIT & Serotoin assay and had normal values of B12 & Folate. Additionally, the pt had negative hepaitits workup. This is only a brief summary of patient stay at [facility]. For a full summary, please see patient records. Patient stable for discharge per Dr. Cuellar. Patient should not resume all home medications (Lisinopril 5mg qd). Patient should additionally take the medications listed below as prescribed . Patient should make an appointment and follow up with PMD within one week for follow up care. Patient should also follow up for a nephrology specialist for management of his dialysis. Patient should also follow up with cardiothoracic surgeon Dr. Monaco in 1 to 2 weeks. Patient can shower starting tomorrow 01/05/18, but he should avoid soaking/baths/ pools. Patient should resume his dialysis Monday, Monday, Monday schedule. Patient should return to ED immediately if symptoms return or worsen. Instructions discussed with patient who understood and agreed. Newly prescribed medications: Phoslo 1334 mg 3 times a day after meals Discharge Exam - Head Exam Head Exam: ATRAUMATIC, NORMAL INSPECTION - Eye Exam Eye Exam: EOMI, Normal appearance - ENT Exam ENT Exam: Mucous Membranes Moist - Neck Exam Neck exam: Full Rom - Respiratory Exam Respiratory Exam: NORMAL BREATHING PATTERN. absent: Rales, Rhonchi, Wheezes, Respiratory Distress - Cardiovascular Exam Cardiovascular Exam: +S1, +S2, Systolic Murmur - GI/Abdominal Exam GI & Abdominal Exam: Normal Bowel Sounds, Soft - Extremities Exam Extremities exam: full ROM, normal inspection, pedal pulses present Additional comments: LUE has AV fistula w/ palpable thrill RLE site of femoral shiley clean, dry with dressing intact Chest tube site is clean dry, and dressing intact. - Psychiatric Exam Psychiatric exam: Normal Affect, Normal Mood - Skin Skin Exam: Dry, Normal Color Discharge Plan - Discharge Medications Prescriptions: Calcium Acetate [Phoslo] 1,334 mg PO ACTID #90 tab - Follow Up Plan Condition: FAIR Disposition: HOME/ ROUTINE Instructions: Pneumothorax (Collapsed Lung) (DC), Renal Failure Diet (DC) Additional Instructions: Patient stable for discharge per Dr. Cuellar. Patient should not resume all home medications (Lisinopril 5mg qd). Patient should additionally take the medications listed below as prescribed . Patient should make an appointment and follow up with PMD within one week for follow up care. Patient should also follow up for a nephrology specialist for management of his dialysis. Patient should also follow up with cardiothoracic surgeon Dr. Monaco in 1 to 2 weeks. Patient can shower starting tomorrow 01/05/18, but he should avoid soaking/baths/ pools. Patient should resume his dialysis Monday, Monday, Monday schedule. Patient should return to ED immediately if symptoms return or worsen. Instructions discussed with patient who understood and agreed. Newly prescribed medications: Phoslo 1334 mg 3 times a day after meals Paciente estable para el elonardo por Dr. Cuellar. El paciente no debe reanudar todos los medicamentos caseros (Lisinopril 5mg qd). El paciente tambin debe lenore los medicamentos enumerados a continuacin segn lo prescrito. El paciente debe programar mayo josemanuel y realizar un seguimiento con PMD dentro de mayo semana para la atencin de seguimiento. El paciente sara debe hacer el seguimiento de un especialista en nefrologa para el manejo de martinez dilisis. El paciente tamariel debe realizar un seguimiento con el cirujano cardiotorcico Dr. Monaco en 1 a 2 semanas. El paciente puede ducharse a partir del da 12/06/17, edmundo debe evitar las inmersiones / baos / piscinas. El paciente debe reanudar martinez programa de dilisis el lunes, mircoles y viernes. El paciente debe regresar a la bakari de urgencias inmediatamente si los sntomas reaparecen o empeoran. Instrucciones discutidas con el paciente que entendi y estuvo de acuerdo. Medicamentos recetados recientemente: Phoslo 1334 mg 3 veces al da despus de las comidas Referrals: Aidan Monaco MD [Staff Provider] - Clinical Quality Measures - CQM - Heart Failure Ejection Fraction: 40 % or Greater Left Ventricular Function to be assessed after discharge: No BLADIMIR Inhibitor Prescribed: No Contraindication/Reason for not providing: Not clinically indicated. Beta-Luba Prescribed: Carvedilol Angiotensin II Receptor Luba Prescribed: No Contraindication/Reason for not providing: Not clinically indicated. AnticoagulationTherapy for Atrial Fibrillation/Atrialflutter: No Contraindication/Reason for not providing: Not clinically indicated. Aldosterone Antagonist Prescribed: No Contraindication/Reason for not providing: Not clinically indicated. Hydralazine Nitrate Prescribed: No Contraindication/Reason for not providing: Not clinically indicated. Implantable Cardioverter Defibrillator Therapy: No Contraindication/Reason for not providing: Not clinically indicated. Cardiac Resynchronization Therapy Prescribed: No Contraindication/Reason for not providing: Not clinically indicated. Will be discharged to: Home Follow Up Date (must be within 7 days from discharge): 01/10/18 Follow Up Time: 09:00
[2018-01-04] MEDS ORDERED: Aritificial Tears (15ml) OU SCH (18:00)
--- NOTE | 2018-01-04 20:59 | CARD ---
APPROVED REPORT EKG Measurement Heart [id number] <Conclusion> Normal sinus rhythm Normal ECG
== END 2018-01-04 18:55 | disposition home or self-care (01) | DRG 539 ==
LOC: C.ER 11:57 → C.9E 15:29 → C.9I 15:29 → UNDOADMIN 15:29 → C.9E 17:35 → C.3T 17:35 → C.9E 17:49 → C.3T 17:49 → C.9E 18:19 → C.9I 18:19 → C.3T 01-03 18:33
PROVIDERS: ADMIT Hospitalist; ATTEND Hospitalist
PROC: 0W9930Z Drainage of Right Pleural Cavity with Drainage Device, Percutaneous Approach (ICD-10-PCS; principal; 2017-12-28)
PROC: 5A1D70Z Performance of Urinary Filtration, Intermittent, Less than 6 Hours Per Day (ICD-10-PCS; 2017-12-29)
PROC: 037Y3ZZ Dilation of Upper Artery, Percutaneous Approach (ICD-10-PCS; 2018-01-01)
PROC: 5A1D70Z Performance of Urinary Filtration, Intermittent, Less than 6 Hours Per Day (ICD-10-PCS; 2018-01-04)
DX: J93.83 Other pneumothorax (principal); I50.42 Chronic combined systolic (congestive) and diastolic (congestive) heart failure; T82.858A Stenosis of other vascular prosthetic devices, implants and grafts, initial encounter; I42.0 Dilated cardiomyopathy; I13.2 Hypertensive heart and chronic kidney disease with heart failure and with stage 5 chronic kidney disease, or end stage renal disease; I08.3 Combined rheumatic disorders of mitral, aortic and tricuspid valves; E87.5 Hyperkalemia; D69.3 Immune thrombocytopenic purpura; K75.9 Inflammatory liver disease, unspecified; N02.8 Recurrent and persistent hematuria with other morphologic changes; N18.6 End stage renal disease; I45.81 Long QT syndrome; I27.20 Pulmonary hypertension, unspecified; E78.00 Pure hypercholesterolemia, unspecified; E04.1 Nontoxic single thyroid nodule; D63.1 Anemia in chronic kidney disease; I95.2 Hypotension due to drugs; T44.7X5A Adverse effect of beta-adrenoreceptor antagonists, initial encounter; Z79.82 Long term (current) use of aspirin; Z79.899 Other long term (current) drug therapy; Z99.2 Dependence on renal dialysis